=== PATIENT | female | born 1960 | race Caucasian/White ===

== ENCOUNTER → 2017-03-14 | Outpatient (CLI) | payer OTHER ==
--- NOTE | 2017-03-15 08:54 | CT ---
EXAMINATION TYPE: CT abdomen pelvis w con DATE OF EXAM: 03/14/2017 COMPARISON: 06/25/2014 HISTORY: Generalized abdominal pain with nausea, vomiting, diarrhea and rectal bleeding x 3 weeks. 42 lb weight loss in [address] DLP: 712 mGycm Automated exposure control for dose reduction was used. CONTRAST: CT scan of the abdomen pelvis is performed with IV Contrast, patient injected with 80 mL of Visipaque 320. FINDINGS- LUNG BASES-linear changes involving the lung bases most typical. LIVER/GB-stable less than 5 mm hypodensity within the dome of the liver too small to characterize. No obvious gallstones.. PANCREAS- No gross abnormality is seen. SPLEEN- No gross abnormality is seen. ADRENALS- No gross abnormality is seen. KIDNEYS/BLADDER- no hydronephrosis or hydronephrosis. Tiny hypodensity involving upper pole the left kidney too small to characterize. BOWEL- no bowel dilatation. Normal appendix. Small hiatal hernia noted. There is prominent wall thi ckness of the sigmoid colon felt to be most likely related to incomplete distention correlate clinica lly. LYMPH NODES- No greater than 1cm abdominal or pelvic lymph nodes are appreciated. OSSEOUS STRUCTURES-degenerative change of the spine. OTHER- atherosclerotic change of the vasculature. No evidence of aortic aneurysm. IMPRESSION- 1. . Mild prominence of the wall thickness of the sigmoid colon felt to be most likely related to inc omplete distention rather than mucosal lesion or colitis. No inflammatory changes. Correlate clinical ly.
== END | disposition home or self-care (01) ==
LOC: RADCTMAIN 17:33
PROVIDERS: ATTEND Family Medicine
DX: R10.84 Generalized abdominal pain (principal); R19.7 Diarrhea, unspecified; R63.4 Abnormal weight loss; Z01.812 Encounter for preprocedural laboratory examination
CPT/HCPCS: 82565; 84520; 74177; 36415; Q9967

== ENCOUNTER 2017-03-27 09:25 | Day surgery (SDC) | payer OTHER ==
[2017-03-25 14:48] VITALS: BMI 25.2
[~2017-03-27 09:25] MED LIST: LACTATED RINGERS 1,000 ML IV SCH; LIDOCAINE 1% 20 ML VIAL (10MG/ML) FOR IV START INTRADERMA PRN
[2017-03-27 10:05] VITALS: RESP 16; TEMP 98.7
[2017-03-27 10:28] LABS: Glucose,Whole Blood 73 mg/dL (75-99)
[2017-03-27] MEDS ORDERED: PROPOFOL 10 MG/ML 20 ML VIAL IV ONE (10:30)
[2017-03-27] MEDS ORDERED: MIDAZOLAM 2 MG/2 ML VIAL ONE (10:30)
[2017-03-27] MEDS ORDERED: fentaNYL (PF) 50 MCG/ML 2 ML AMP ONE (10:30)
--- NOTE | 2017-03-27 10:51 | P.PCN ---
Date of Procedure: 03/27/17 Procedure(s) Performed: BRIEF HISTORY: Patient is a 56-year-old pleasant white female, scheduled for an elective colonoscopy as a part of evaluation of rectal bleeding for the last 2 months duration. She has these episodes 2- 3 times a week. Denies any significant change in her bowel habits. PROCEDURE PERFORMED: Colonoscopy and snare polypectomy. PREOPERATIVE DIAGNOSIS: Rectal bleeding. IV sedation per Anesthesia. PROCEDURE: After informed consent was obtained, the patient, was brought into the endoscopy unit. IV sedation was administered by Anesthesia under continuous monitoring. Digital rectal examination was normal. Initially the Olympus CF- 160 flexible video colonoscope was then inserted in the rectum, gradually advanced into the cecum without any difficulty. Careful examination was performed as the scope was gradually being withdrawn. Ileocecal valve and the appendiceal orifice were visualized and appeared normal. Prep was excellent. Mucosa of the cecum, ascending colon, transverse colon, was normal. He the descending colon there was a 1.7-5 cm broad-based polyp at 60 cm from the anal was there was removed by snare polypectomy. In the sigmoid colon there were 2 polyps measuring 5 mm in size removed by snare polypectomy and in the distal rectum there was a 5 and admitted polyp removed by snare polypectomy. The rest of the descending colon, sigmoid colon, and rectum appeared normal. Scattered ascending diverticulosis seen. Retroflexion was performed in the rectum and all internal hemorrhoids were seen. The patient tolerated the procedure well. IMPRESSION: 1.5 cm broad-based ascending colon polyp status post polypectomy. 5 mm 2 sigmoid polyp status post polypectomy 5 mm distal rectal polyp status post polypectomy Scattered sigmoid diverticulosis. RECOMMENDATIONS: Findings of this examination were discussed with the patient as well as her family. She was advised to follow with the biopsy results have a repeat colonoscopy in 3 yrs
[2017-03-27 11:15] VITALS: BP 126/73; PULSE 93
== END 2017-03-27 12:03 | disposition home or self-care (01) ==
LOC: ORWHC2ENDO 09:25
PROVIDERS: ATTEND Internal Medicine Gastroenterology
DX: K63.5 Polyp of colon (principal); K62.1 Rectal polyp; K57.30 Diverticulosis of large intestine without perforation or abscess without bleeding; K64.8 Other hemorrhoids; K21.9 Gastro-esophageal reflux disease without esophagitis; I10 Essential (primary) hypertension; E78.5 Hyperlipidemia, unspecified; E11.9 Type 2 diabetes mellitus without complications; Z79.84 Long term (current) use of oral hypoglycemic drugs; Z79.51 Long term (current) use of inhaled steroids; Z79.899 Other long term (current) drug therapy; Z88.6 Allergy status to analgesic agent; Z88.5 Allergy status to narcotic agent
CPT/HCPCS: 88305; 45385; J2250; J3010; J2704

== ENCOUNTER → 2017-04-01 | Outpatient (CLI) | payer OTHER ==
--- NOTE | 2017-04-01 21:05 | XR ---
Right knee HISTORY: Right knee pain, trauma 3 views of the right knee Bone mineralization, joint spaces and alignment are maintained. No evident sizable joint effusion. IMPRESSION: No fracture or dislocation.
== END | disposition home or self-care (01) ==
LOC: RADXRYALE 16:02
PROVIDERS: ATTEND Physician Assistant
DX: M25.561 Pain in right knee (principal)

== ENCOUNTER → 2017-07-23 | Outpatient (CLI) | payer OTHER ==
--- NOTE | 2017-07-24 11:27 | MM ---
Reason for exam: screening (asymptomatic). Last mammogram was performed 1 year ago. History: Benign excisional biopsy of the right breast, 2014. Physical Findings: A clinical breast exam by your physician is recommended on an annual basis and results should be correlated with mammographic findings. MG 3D Screening Mammo W/Cad Bilateral CC and MLO view(s) were taken. Prior study comparison: July 17, 2016, mammogram, performed at [facility]. May 06, 2015, mammogram, performed at [facility]. The breast tissue is almost entirely fat. Stable benign calcifications. ASSESSMENT: Benign, BI-RAD 2 RECOMMENDATION: Routine screening mammogram of both breasts in 1 year.
== END | disposition home or self-care (01) ==
LOC: RADMAMWWP 10:45
PROVIDERS: ATTEND Family Medicine
DX: Z12.31 Encounter for screening mammogram for malignant neoplasm of breast (principal)
CPT/HCPCS: 77063; 77067

== ENCOUNTER → 2017-08-06 | Outpatient (CLI) | payer OTHER ==
--- NOTE | 2017-08-06 10:52 | XR ---
EXAMINATION TYPE: XR abdomen 2V DATE OF EXAM: 08/06/2017 COMPARISON: NONE HISTORY: Pain and constipation TECHNIQUE: One view abdominal series FINDINGS: The osseous structures are intact. The bowel gas pattern is nonspecific. Lung bases are clear. Calc ifications in the pelvis are nonspecific. Retained fecal debris along the left colon. Arthropathy of the hips. IMPRESSION: 1. Nonspecific abdomen.
== END | disposition home or self-care (01) ==
LOC: RADXRYALE 10:30
PROVIDERS: ATTEND Physician Assistant Medical
DX: K59.00 Constipation, unspecified (principal)
CPT/HCPCS: 74019

== ENCOUNTER → 2018-01-09 | Outpatient (CLI) | payer OTHER ==
--- NOTE | 2018-01-09 12:34 | XR ---
EXAMINATION TYPE: XR chest 2V DATE OF EXAM: 01/09/2018 COMPARISON: 09/09/2014 TECHNIQUE: PA and lateral views submitted. HISTORY: Chest pain FINDINGS: The lungs are clear and there is no pneumothorax, pleural effusion, or focal pneumonia. Atheroscler otic change aorta. No overt failure. Hypertrophic and degenerative change of the vertebral column. He art size within normal limits in density along the right cardiophrenic angle appears to be compatible with a prominent pericardial fat pad and stable.. IMPRESSION: 1. No acute process.
== END ==
LOC: RADXRYALE 12:12
PROVIDERS: ATTEND Physician Assistant Medical
DX: R07.9 Chest pain, unspecified (principal); Z72.0 Tobacco use
CPT/HCPCS: 71046

== ENCOUNTER → 2018-09-24 | Outpatient (CLI) | payer OTHER ==
--- NOTE | 2018-09-24 12:21 | XR ---
Right hand HISTORY: Trauma and pain 3 views of the right hand There is arthropathy at the carpometacarpal joint of the first digit. Fracture involving the proximal aspect of the proximal phalanx of the fifth digit possibly extends into the medical carpal phalangea l joint, minimal displacement. Arthropathy present at the distal interphalangeal joints. IMPRESSION: Suspect intra-articular fifth digit proximal phalangeal fracture.
== END | disposition home or self-care (01) ==
LOC: RADXRYALE 09:41
PROVIDERS: ATTEND Physician Assistant Medical
DX: M79.641 Pain in right hand (principal); W19.XXXA Unspecified fall, initial encounter

== ENCOUNTER 2019-03-16 12:15 | Inpatient (IN) | payer OTHER ==
[2019-03-16] MEDS ORDERED: SODIUM CHLORIDE 0.9% 500 ML 500 ML IV STA (13:17)
[2019-03-16 13:24] LABS: Basophils # (A) 0.1 k/uL (0-0.2); Basophils % (A) 1 %; Eosinophils # (A) 0.5 k/uL (0-0.7); Eosinophils % (A) 7 %; HCT 39.6 % (34.0-46.0); Lymphocytes # (A) 1.2 k/uL (1.0-4.8); Lymphocytes % (A) 16 %; MCH 37.2 pg (25.0-35.0); MCV 112.9 fL (80.0-100.0); Macrocytosis Marked; Mean Platelet Volume 7.2; Monocytes # (A) 0.5 k/uL (0-1.0); Monocytes % (A) 6 %; Neutrophils % (A) 66 %; Platelet Count 172 k/uL (150-450); RBC 3.51 m/uL (3.80-5.40); RDW 14.8 % (11.5-15.5); WBC 7.6 k/uL (3.8-10.6)
--- NOTE | 2019-03-16 13:30 | ED ---
General Adult HPI - General Source: patient, RN notes reviewed Mode of arrival: ambulatory Limitations: no limitations <Andre Otoole - Last Filed: 03/16/19 13:55> <Guevara Martinez - Last Filed: 03/16/19 14:03> - General Chief complaint: GI Bleed Stated complaint: skin tag bleeding Time Seen by Provider: 03/16/19 12:59 - History of Present Illness Initial comments: 58-year-old female with a complicated PMH presents to the emergency department for a chief complaint of toe bleeding. Patient states she has had rectal bleeding for the past 6 months. States she had a small skin tag on her anus starting 2 years ago. Patient states that she saw Dr. Weiner and had a colonoscopy at that time. States that they did not recommend intervention for this skin tag. However over the past 6 months the skin tag has grown. States she is now having bright red blood every time she has a bowel movement. Patient states she did see GI in January and was supposed to see them again in February for this but missed her appointment and never rescheduled. Patient states she is now feeling weak and that is why she presents to the emergency department.Patient has no other complaints at this time including shortness of breath, chest pain, abdominal pain, nausea or vomiting, headache, or visual changes. (Andre Otoole) - Related Data Home Medications Medication Instructions Recorded Confirmed Albuterol Inhaler [Ventolin Hfa 2 puff INHALATION Q6HR PRN 03/25/17 03/25/17 Inhaler] Atorvastatin [Lipitor] 80 mg PO HS 03/25/17 03/25/17 Cholecalciferol [Vitamin D3] 1,000 unit PO DAILY 03/25/17 03/25/17 FLUoxetine HCL [PROzac] 20 mg PO DAILY 03/25/17 03/25/17 Hydrocodone/Acetaminophen [[place] 1 tab PO QID 03/25/17 03/25/17 10-325] Lisinopril-Hctz 20-25 mg 1 tab PO DAILY 03/25/17 03/25/17 [Zestoretic 20-25] Mometasone/Formoterol [Dulera 100 2 puff INHALATION BID 03/25/17 03/25/17 Mcg/5 Mcg Inhaler] Montelukast [Singulair] 10 mg PO DAILY 03/25/17 03/25/17 Ranitidine HCl [Zantac] 300 mg PO BID 03/25/17 03/25/17 metFORMIN HCL [Glucophage] 500 mg PO BID 03/25/17 03/25/17 Allergies Allergy/AdvReac Type Severity Reaction Status Date / Time naproxen [From Naprosyn] Allergy Mild Nausea & Verified 03/16/19 12:18 Vomiting acetaminophen Allergy Nausea & Verified 03/16/19 12:18 [From Darvocet-N] Vomiting propoxyphene Allergy Nausea & Verified 03/16/19 12:18 [From Darvocet-N] Vomiting Review of Systems ROS Other: All systems not noted in ROS Statement are negative. <Andre Otoole - Last Filed: 03/16/19 13:55> ROS Other: All systems not noted in ROS Statement are negative. <Guevara Martinez - Last Filed: 03/16/19 14:03> ROS Statement: Those systems with pertinent positive or pertinent negative responses have been documented in the HPI. Past Medical History Past Medical History: Asthma, COPD, Diabetes Mellitus, GERD/Reflux, Hyperlipidemia, Hypertension, Pneumonia, Seizure Disorder Additional Past Medical History / Comment(s): migraines, epilepsy dx as infant, chronic bronchitis, upset stomach recently, rectal bleeding for past 6-7 months, History of Any Multi-Drug Resistant Organisms: None Reported Past Surgical History: Breast Surgery, Orthopedic Surgery Additional Past Surgical History / Comment(s): left fallopian tube removed and oophorectomy, cysts removed from tommy breasts, cyst removed from forehead, left knee arthroscopy x 2, Past Anesthesia/Blood Transfusion Reactions: No Reported Reaction Past Psychological History: Anxiety, Depression Smoking Status: Current every day smoker Past Alcohol Use History: Daily Past Drug Use History: None Reported - Past Family History Mother Family Medical History: Cancer Father Family Medical History: Cancer <Andre Otoole - Last Filed: 03/16/19 13:55> General Exam Limitations: no limitations General appearance: alert, in no apparent distress Head exam: Present: atraumatic, normocephalic, normal inspection Eye exam: Present: normal appearance, PERRL, EOMI. Absent: scleral icterus, conjunctival injection, periorbital swelling ENT exam: Present: normal exam, mucous membranes moist Neck exam: Present: normal inspection, full ROM. Absent: tenderness, meningismus, lymphadenopathy Respiratory exam: Present: normal lung sounds bilaterally. Absent: respiratory distress, wheezes, rales, rhonchi, stridor Cardiovascular Exam: Present: regular rate, normal rhythm, normal heart sounds. Absent: systolic murmur, diastolic murmur, rubs, gallop, clicks GI/Abdominal exam: Present: soft, normal bowel sounds. Absent: distended, tenderness, guarding, rebound, rigid Rectal exam: Present: hemorrhoids (large hemorrhoid noted, tender, non-thro mbosed) Neurological exam: Present: alert <Andre Otoole - Last Filed: 03/16/19 13:55> Course <Guevara Martinez - Last Filed: 03/16/19 14:03> Vital Signs 03/16/19 03/16/19 12:18 13:23 Temperature 98.1 F Pulse Rate 106 H 101 H Respiratory 18 18 Rate Blood Pressure 107/69 110/75 O2 Sat by Pulse 99 98 Oximetry - Reevaluation(s) Reevaluation #1: 03/16/19 14:02 PA supervision: I pursued a [id number] evaluation the patient did discuss the findings with her. She does present with weakness. Heme positive brown stool she also has elevation of her creatinine was acute kidney injury as well as elevation of her LFTs. She admits to drinking 2-3 drinks per day she does not believe going through withdrawal from not drinking she does however smoke a pack a day and does believe she'll have withdrawal from nicotine. She will be placed on appropriate medication. I did discuss case with Dr. Gant (Guevara Martinez) Medical Decision Making - Lab Data Result diagrams: 03/16/19 13:10 03/16/19 13:10 <Andre Otoole - Last Filed: 03/16/19 13:55> - Lab Data Result diagrams: 03/16/19 13:10 03/16/19 13:10 <Guevara Martinez - Last Filed: 03/16/19 14:03> - Medical Decision Making Patient presents for weakness. Patient thought this is secondary to GI bleed. She is minimally tachycardic. Occult is positive, although hemoglobin is stable at 13.0. Patient was found to be in acute renal failure with a creatinine of 2.99. Baseline appears to be around 1.2. Patient also has transaminitis with an elevated bilirubin. Could be secondary to alcoholic hepatitis as patient reports to drinking 3 drinks per day. She does not have any abdominal pain. Magnesium 1.4, this was replaced. Patient will be started on IV fluids. GI will be consulted given hemorrhoid, GI bleed, and transaminitis. Nephrology will be consulted given acute renal failure. (Andre Otoole) - Lab Data Lab Results 03/16/19 03/16/19 03/16/19 Range/Units 13:10 13:10 13:10 WBC 7.6 (3.8-10.6) k/uL RBC 3.51 L (3.80-5.40) m/uL Hgb 13.0 (11.4-16.0) gm/dL Hct 39.6 (34.0-46.0) % MCV 112.9 H (80.0-100.0) fL MCH 37.2 H (25.0-35.0) pg MCHC 33.0 (31.0-37.0) g/dL RDW 14.8 (11.5-15.5) % Plt Count 172 (150-450) k/uL Neutrophils % 66 % Lymphocytes % 16 % Monocytes % 6 % Eosinophils % 7 % Basophils % 1 % Neutrophils # 5.0 (1.3-7.7) k/uL Lymphocytes # 1.2 (1.0-4.8) k/uL Monocytes # 0.5 (0-1.0) k/uL Eosinophils # 0.5 (0-0.7) k/uL Basophils # 0.1 (0-0.2) k/uL Macrocytosis Marked A PT (9.0-12.0) sec INR (<1.2) APTT (22.0-30.0) sec Sodium 133 L (137-145) mmol/L Potassium 4.0 (3.5-5.1) mmol/L Chloride 102 (98-107) mmol/L Carbon Dioxide 18 L (22-30) mmol/L Anion Gap 13 mmol/L BUN 16 (7-17) mg/dL Creatinine 2.99 H (0.52-1.04) mg/dL Est GFR (CKD-EPI)AfAm 19 (>60 ml/min/1.73 sqM) Est GFR (CKD-EPI)NonAf 17 (>60 ml/min/1.73 sqM) Glucose 74 (74-99) mg/dL Calcium 8.7 (8.4-10.2) mg/dL Magnesium 1.4 L (1.6-2.3) mg/dL Total Bilirubin 1.4 H (0.2-1.3) mg/dL AST 656 H (14-36) U/L ALT 209 H (4-34) U/L Alkaline Phosphatase 156 H (38-126) U/L Total Protein 7.2 (6.3-8.2) g/dL Albumin 3.5 (3.5-5.0) g/dL Stool Occult Blood Positive H (Negative) 03/16/19 Range/Units 13:10 WBC (3.8-10.6) k/uL RBC (3.80-5.40) m/uL Hgb (11.4-16.0) gm/dL Hct (34.0-46.0) % MCV (80.0-100.0) fL MCH (25.0-35.0) pg MCHC (31.0-37.0) g/dL RDW (11.5-15.5) % Plt Count (150-450) k/uL Neutrophils % % Lymphocytes % % Monocytes % % Eosinophils % % Basophils % % Neutrophils # (1.3-7.7) k/uL Lymphocytes # (1.0-4.8) k/uL Monocytes # (0-1.0) k/uL Eosinophils # (0-0.7) k/uL Basophils # (0-0.2) k/uL Macrocytosis PT 11.0 (9.0-12.0) sec INR 1.0 (<1.2) APTT 28.0 (22.0-30.0) sec Sodium (137-145) mmol/L Potassium (3.5-5.1) mmol/L Chloride (98-107) mmol/L Carbon Dioxide (22-30) mmol/L Anion Gap mmol/L BUN (7-17) mg/dL Creatinine (0.52-1.04) mg/dL Est GFR (CKD-EPI)AfAm (>60 ml/min/1.73 sqM) Est GFR (CKD-EPI)NonAf (>60 ml/min/1.73 sqM) Glucose (74-99) mg/dL Calcium (8.4-10.2) mg/dL Magnesium (1.6-2.3) mg/dL Total Bilirubin (0.2-1.3) mg/dL AST (14-36) U/L ALT (4-34) U/L Alkaline Phosphatase (38-126) U/L Total Protein (6.3-8.2) g/dL Albumin (3.5-5.0) g/dL Stool Occult Blood (Negative) Disposition Is patient prescribed a controlled substance at d/c from ED?: No Time of Disposition: 13:59 <Andre Otoole - Last Filed: 03/16/19 13:55> <Guevara Martinez - Last Filed: 03/16/19 14:03> Clinical Impression: Weakness, Transaminitis, GI bleed, Hemorrhoid, Hypomagnesemia, Hyperbil irubinemia Disposition: ADMITTED IP TO THIS HOSP Referrals: Yfn Tao DO [Primary Care Provider] - 1-2 days
[2019-03-16 13:38] LABS: Albumin 3.5 g/dL (3.5-5.0); Calcium 8.7 mg/dL (8.4-10.2); Magnesium 1.4 mg/dL (1.6-2.3); Total Bilirubin 1.4 mg/dL (0.2-1.3); Total Protein 7.2 g/dL (6.3-8.2)
[2019-03-16] MEDS ORDERED: MAGNESIUM SULFATE-D5W PMX 1 GM in DEXTROSE/WATER 1 100ML.BAG IVPB ONE (13:55)
[2019-03-16] MEDS ORDERED: NALOXONE 0.4 MG/ML 1 ML VIAL IV PRN (13:59)
[2019-03-16] MEDS ORDERED: LORazepam 2 MG/ML INJ IV PRN ×3 (14:22)
[2019-03-16] MEDS ORDERED: THIAMINE 100 MG/ML 2 ML VIAL IM STA (14:22)
--- NOTE | 2019-03-16 14:22 | P.HPIM ---
History of Present Illness This is a pleasant 58 years old female with past medical history of asthma/COPD, diabetes mellitus, gastroesophageal reflux disease, hypertension, hyperlipidemia, seizure disorder, migraines, epilepsy since entrance, chronic bronchitis, rectal bleeding for the past 6 or 7 months. Patient presents because she feels generally weak with lightheadedness and dizziness for the last few days. Her main concerns was skin tack around the rectal area with Doppler blood has been going on for 6-7 months. She went to see Dr. martinez nurse practitioner: January and she missed her follow-up appointment on February. Patient has decreased appetite She denies nausea vomiting, she has chronic diarrhea and mild left abdominal pain. She denies chest pain or dyspnea. No urine abnormality. Patient smokes about 1 pack per day, she drinks about 2-3 drinks of alcohol every days but no illicit tracts Patient as well as tachycardic 101-2106, respiratory vitals were unremarkable. Hemoglobin 13.0, a CBC is unremarkable. Sodium 133, creatinine is elevated at 2.9, non-baseline, magnesium 1.4, liver enzymes are elevated AST 656 and ALT 209 with bilirubin 1.4, occult blood in stool was positive In the emergency room patient was started on normal son 120 mL per hour Review of Systems CONSTITUTIONAL: No fever, no malaise, no fatigue. HEENT: No recent visual problems or hearing problems. Denied any sore throat. CARDIOVASCULAR: No orthopnea, PND, no palpitations, no syncope. PULMONARY: No shortness of breath, no cough, no hemoptysis. GASTROINTESTINAL: No diarrhea, no nausea, no vomiting, no abdominal pain. Normoactive bowel sounds. NEUROLOGICAL: No headaches, no weakness, no numbness. HEMATOLOGICAL: Denies any bleeding or petechiae. GENITOURINARY: Denies any burning micturition, frequency, or urgency. MUSCULOSKELETAL/RHEUMATOLOGICAL: Denies any joint pain, swelling, or any muscle pain. ENDOCRINE: Denies any polyuria or polydipsia. Past Medical History Past Medical History: Asthma, COPD, Diabetes Mellitus, GERD/Reflux, Hyperlipidemia, Hypertension, Pneumonia, Seizure Disorder Additional Past Medical History / Comment(s): migraines, epilepsy dx as infant, chronic bronchitis, upset stomach recently, rectal bleeding for past 6-7 months, History of Any Multi-Drug Resistant Organisms: None Reported Past Surgical History: Breast Surgery, Orthopedic Surgery Additional Past Surgical History / Comment(s): left fallopian tube removed and oophorectomy, cysts removed from tommy breasts, cyst removed from forehead, left knee arthroscopy x 2, Past Anesthesia/Blood Transfusion Reactions: No Reported Reaction Past Psychological History: Anxiety, Depression Smoking Status: Current every day smoker Past Alcohol Use History: Daily Past Drug Use History: None Reported - Past Family History Mother Family Medical History: Cancer Father Family Medical History: Cancer Medications and Allergies Home Medications Medication Instructions Recorded Confirmed Type Albuterol Inhaler [Ventolin Hfa 2 puff INHALATION Q6HR PRN 03/25/17 03/25/17 History Inhaler] Atorvastatin [Lipitor] 80 mg PO HS 03/25/17 03/25/17 History Cholecalciferol [Vitamin D3] 1,000 unit PO DAILY 03/25/17 03/25/17 History FLUoxetine HCL [PROzac] 20 mg PO DAILY 03/25/17 03/25/17 History Hydrocodone/Acetaminophen [[place] 1 tab PO QID 03/25/17 03/25/17 History 10-325] Lisinopril-Hctz 20-25 mg 1 tab PO DAILY 03/25/17 03/25/17 History [Zestoretic 20-25] Mometasone/Formoterol [Dulera 100 2 puff INHALATION BID 03/25/17 03/25/17 History Mcg/5 Mcg Inhaler] Montelukast [Singulair] 10 mg PO DAILY 03/25/17 03/25/17 History Ranitidine HCl [Zantac] 300 mg PO BID 03/25/17 03/25/17 History metFORMIN HCL [Glucophage] 500 mg PO BID 03/25/17 03/25/17 History Allergies Allergy/AdvReac Type Severity Reaction Status Date / Time naproxen [From Naprosyn] Allergy Mild Nausea & Verified 03/16/19 12:18 Vomiting acetaminophen Allergy Nausea & Verified 03/16/19 12:18 [From Darvocet-N] Vomiting propoxyphene Allergy Nausea & Verified 03/16/19 12:18 [From Darvocet-N] Vomiting Physical Exam Vitals: Vital Signs Temp Pulse Resp BP Pulse Ox 03/16/19 13:23 101 H 18 110/75 98 03/16/19 12:18 98.1 F 106 H 18 107/69 99 Intake and Output 03/15/19 03/16/19 03/16/19 22:59 06:59 14:59 Other: Weight 63.503 kg -GENERAL: The patient is alert and oriented x3, not in any acute distress. Patient is generally weak HEENT: Pupils are round and equally reacting to light. EOMI. No scleral icterus. No conjunctival pallor. Normocephalic, atraumatic. No pharyngeal erythema. No thyromegaly. CARDIOVASCULAR: S1 and S2 present. No murmurs, rubs, or gallops. PULMONARY: Chest is clear to auscultation, no wheezing or crackles. ABDOMEN: Soft, nontender, nondistended, normoactive bowel sounds. No palpable organomegaly. MUSCULOSKELETAL: No joint swelling or deformity. EXTREMITIES: No cyanosis, clubbing, or pedal edema. NEUROLOGICAL: Gross neurological examination did not reveal any focal deficits. SKIN: No rashes. No petechiae Results CBC & Chem 7: 03/16/19 13:10 03/16/19 13:10 Labs: Abnormal Lab Results - Last 24 Hours (Table) 03/16/19 03/16/19 03/16/19 Range/Units 13:10 13:10 13:10 RBC 3.51 L (3.80-5.40) m/uL MCV 112.9 H (80.0-100.0) fL MCH 37.2 H (25.0-35.0) pg Macrocytosis Marked A Sodium 133 L (137-145) mmol/L Carbon Dioxide 18 L (22-30) mmol/L Creatinine 2.99 H (0.52-1.04) mg/dL Magnesium 1.4 L (1.6-2.3) mg/dL Total Bilirubin 1.4 H (0.2-1.3) mg/dL AST 656 H (14-36) U/L ALT 209 H (4-34) U/L Alkaline Phosphatase 156 H (38-126) U/L Stool Occult Blood Positive H (Negative) Assessment and Plan Assessment: Elevated liver enzymes, mostly related to alcoholic hepatitis Acute kidney injury , mostly prerenal related to her diarrhea, bleeding, decrease intake and appetite alcohol abuse and dependence High-risk for alcohol withdrawal and DTs Positive occult blood in stool Hypomagnesemia Nicotine dependence Chronic diarrhea Asthma/COPD Diabetes mellitus Gastroesophageal reflux disease Hypertension Hyperlipidemia Seizure disorder since infancy Migraine Chronic bronchitis Rectal bleeding about 6-7 months ago Plan: This is a pleasant 58 years old female who presents with acute kidney injury and positive blood in the stool suspicious for GI bleed with elevated liver enzymes. Continue with Protonix, and GI consult. Continue with IV fluid and nephrology consult. Check renal ultrasound and bladder scan. Check urine analysis. With the patient on CIWA protocol and vitamins. Labs and medication were reviewed.. Continue same treatment. Continue with symptomatic treatment. Resume home medication. Monitor lytes and vitals. DVT and GI prophylaxis. Further recommendations of the clinical course of the patient DVT prophylaxis: No heparin in view of possible GI bleed GI Prophylaxis: PPI PT/OT: Pending Prognosis is guarded
[2019-03-16] MEDS ORDERED: SODIUM CHLORIDE 0.9% 1,000 ML with MVI, ADULT NO.4 WITH VIT K 10 ML, THIAMINE 100 MG, F... IV ONE ×4 (14:30)
[2019-03-16] MEDS: NICOTINE 21MG/24HR PATCH TRANSDERM SCH (14:56)
[2019-03-16] MEDS: PANTOPRAZOLE 40 MG/10 ML VIAL IVP SCH (14:58)
--- NOTE | 2019-03-16 15:38 | US ---
EXAMINATION TYPE: US kidneys/renal and bladder DATE OF EXAM: 03/16/2019 COMPARISON: CT 2017, US 2014 CLINICAL HISTORY: sherwin. EXAM MEASUREMENTS: Right Kidney: 9.5 x 4.5 x 4.4 cm Left Kidney: 9.7 x 5.2 x 5.4 cm Right Kidney: no hydronephrosis or masses seen Left Kidney: no hydronephrosis or masses seen Bladder: not fully distended Cortical medullary differentiation is maintained. No pathologic calcification. IMPRESSION: Limited evaluation of the bladder. Renal sizes as described.
[2019-03-16 16:12] LABS: Appearance,Urine Clear (Clear); Bacteria,Urine Occasional /hpf; Bilirubin,Urine Negative (Negative); Blood,Urine Small (Negative); Color,Urine Light Yellow; Glucose,Urine (UA) Negative (Negative); Hyaline Casts,Urine 1 /lpf (0-2); Ketones,Urine Negative (Negative); Leukocyte Esterase,Urine Negative (Negative); Nitrite,Urine Negative (Negative); PH, Urine 5.5 (5.0-8.0); Protein,Urine Trace (Negative); RBC,Urine 1 /hpf (0-5); Specific Gravity,Urine 1.004 (1.001-1.035); Squamous Epithelial Cell,Urine <1 /hpf (0-4); Urobilinogen,Urine <2.0 mg/dL (<2.0); WBC,Urine 3 /hpf (0-5)
[2019-03-16] MEDS ORDERED: ACETAMINOPHEN TAB 325 MG TAB PO PRN (17:11)
[2019-03-16] MEDS: GABAPENTIN 100 MG CAP PO SCH ×2 (17:56→23:02)
[2019-03-16] MEDS: THIAMINE 100 MG TAB PO SCH (17:58)
[2019-03-16] MEDS ORDERED: THIAMINE 100 MG in SODIUM CHLORIDE 0.9% 50 ML IVPB SCH (21:00)
[2019-03-17 01:06] LABS: Hepatitis A Antibody IgM Non-Reactive (Non-Reactive); Hepatitis B Core IgM Non-Reactive (Non-Reactive); Hepatitis B Surface Antigen Non-Reactive (Non-Reactive); Hepatitis C IgG Antibody Reactive (Non-Reactive)
[2019-03-17] MEDS: SODIUM CHLORIDE 0.9% 1,000 ML IV SCH ×3 (01:40→20:38)
[2019-03-17] MEDS ORDERED: IOPAMIDOL CONTRAST (ORAL USE) VIAL PO PRN (07:00)
[2019-03-17] MEDS ORDERED: MORPHINE SULFATE 4 MG/ML SYRINGE IVP PRN (07:02)
--- NOTE | 2019-03-17 07:05 | P.PN ---
Subjective This is a pleasant 58 years old female with past medical history of asthma/COPD, diabetes mellitus, gastroesophageal reflux disease, hypertension, h yperlipidemia, seizure disorder, migraines, epilepsy since entrance, chronic bronchitis, rectal bleeding for the past 6 or 7 months. Patient presents because she feels generally weak with lightheadedness and dizziness for the last few days. Her main concerns was skin tack around the rectal area with Doppler blood has been going on for 6-7 months. She went to see Dr. martinez nurse practitioner: January and she missed her follow-up appointment on February. Patient has decreased appetite She denies nausea vomiting, she has chronic diarrhea and mild left abdominal pain. She denies chest pain or dyspnea. No urine abnormality. Patient smokes about 1 pack per day, she drinks about 2-3 drinks of alcohol every days but no illicit tracts Patient as well as tachycardic [id number], respiratory vitals were unremarkable. Hemoglobin 13.0, a CBC is unremarkable. Sodium 133, creatinine is elevated at 2.9, non-baseline, magnesium 1.4, liver enzymes are elevated AST 656 and ALT 209 with bilirubin 1.4, occult blood in stool was positive In the emergency room patient was started on normal son 120 mL per hour 03/17/2019 Patient is awake and alert, she has minimal craving for alcohol with mild sammi mor. her CIWA score is wanted to so far. She is mildly tachycardic at 108-1/10, respiratory vitals Stable and blood pressure 135/73, she is not on antihypertensive medication and she is currently on normal saline at 1 20 mL/h. Labs are still pending. Her hepatitis C IgG antibodies are positive. However patient today is complaining of from lower abdominal pain, mainly on the left side and also upper abdomen. She has some tenderness and minimal guarding. Her abdominal pain started yesterday night as she is telling me and is related about 8/10. Nonspecific nonradiating. She did not have bowel movement for the last 2 days. No vomiting. Ultrasound of the renal system from yesterday showi ng no hydronephrosis or masses. Also patient was complaining of from back pain. Anemia workup is still pending. Review of systems: CONSTITUTIONAL: No fever, no malaise, no fatigue. HEENT: No recent visual problems or hearing problems. Denied any sore throat. CARDIOVASCULAR: No orthopnea, PND, no palpitations, no syncope. PULMONARY: No shortness of breath, no cough, no hemoptysis. NEUROLOGICAL: No headaches, no weakness, no numbness. HEMATOLOGICAL: Denies any bleeding or petechiae. GENITOURINARY: Denies any burning micturition, frequency, or urgency. MUSCULOSKELETAL/RHEUMATOLOGICAL: Denies any joint pain, swelling, or any muscle pain. ENDOCRINE: Denies any polyuria or polydipsia. Active Medications Generic Name Dose Route Start Last Admin Trade Name Freq PRN Reason Stop Dose Admin Acetaminophen 650 mg 03/16/19 17:11 03/17/19 06:12 Tylenol Tab PO 650 mg Q6HR PRN Administration Fever and/ or Pain Gabapentin 100 mg 03/16/19 14:21 03/16/19 23:02 Neurontin PO 100 mg BID [place] Administration Sodium Chloride 1,000 mls @ 120 mls/hr 03/17/19 00:00 03/17/19 01:40 Saline 0.9% IV 120 mls/hr .Q8H20M [place] Administration Iopamidol 30 ml 03/17/19 07:00 Isovue-300 (For Oral Use) PO 03/18/19 07:[address] Scan Lorazepam 1 mg 03/16/19 14:22 Ativan IV Q2HR PRN CIWA 8 or 9 Lorazepam 1 mg 03/16/19 14:22 Ativan IV Q1HR PRN CIWA 10 to 15 Lorazepam 2 mg 03/16/19 14:22 Ativan IV 03/18/19 14:22 Q10M PRN CIWA 16 or higher Naloxone HCl 0.2 mg 03/16/19 13:59 Narcan IV Q2M PRN Opioid Reversal Nicotine 1 patch 03/16/19 14:15 03/16/19 14:56 Habitrol 21mg/24hr Patch TRANSDERM 1 patch DAILY [place] Administration Pantoprazole Sodium 40 mg 03/16/19 14:15 03/16/19 14:58 Protonix IVP 40 mg DAILY [place] Administration Thiamine HCl 100 mg 03/16/19 17:30 03/16/19 17:58 Vitamin B-1 PO Not Given BID-W/MEALS [place] Objective - Vital Signs Vital signs: Vital Signs Temp 98.2 F 03/17/19 05:51 Pulse 109 H 01/14/20 05:51 Resp 18 03/17/19 05:51 BP 135/73 03/17/19 05:51 Pulse Ox 96 03/17/19 05:51 Intake & Output 03/16/19 03/16/19 03/17/19 06:59 18:59 06:59 Intake Total 0 Balance 0 Weight 63.503 kg 64.5 kg Intake: Oral 0 Other: Voiding Method Toilet # Voids 1 - Exam -GENERAL: The patient is alert and oriented x3, not in any acute distress. Patient is generally weak HEENT: Pupils are round and equally reacting to light. EOMI. No scleral icterus. No conjunctival pallor. Normocephalic, atraumatic. No pharyngeal erythema. No thyromegaly. CARDIOVASCULAR: S1 and S2 present. No murmurs, rubs, or gallops. PULMONARY: Chest is clear to auscultation, no wheezing or crackles. -ABDOMEN: Soft, left and upper abdominal tenderness with minimal guarding and no rebound tenderness, nondistended, normoactive bowel sounds. No palpable organomegaly. MUSCULOSKELETAL: No joint swelling or deformity. EXTREMITIES: No cyanosis, clubbing, or pedal edema. NEUROLOGICAL: Gross neurological examination did not reveal any focal deficits. SKIN: No rashes. No petechiae - Labs CBC & Chem 7: 03/16/19 13:10 03/16/19 13:10 Labs: Abnormal Lab Results - Last 24 Hours (Table) 03/16/19 03/16/19 03/16/19 Range/Units 13:10 13:10 13:10 RBC 3.51 L (3.80-5.40) m/uL MCV 112.9 H (80.0-100.0) fL MCH 37.2 H (25.0-35.0) pg Macrocytosis Marked A Sodium 133 L (137-145) mmol/L Carbon Dioxide 18 L (22-30) mmol/L Creatinine 2.99 H (0.52-1.04) mg/dL Magnesium 1.4 L (1.6-2.3) mg/dL Total Bilirubin 1.4 H (0.2-1.3) mg/dL AST 656 H (14-36) U/L ALT 209 H (4-34) U/L Alkaline Phosphatase 156 H (38-126) U/L Urine Protein (Negative) Urine Blood (Negative) Urine Bacteria (None) /hpf Stool Occult Blood Positive H (Negative) Hep C IgG Ab (Non-Reactive) 03/16/19 03/16/19 Range/Units 14:34 15:10 RBC (3.80-5.40) m/uL MCV (80.0-100.0) fL MCH (25.0-35.0) pg Macrocytosis Sodium (137-145) mmol/L Carbon Dioxide (22-30) mmol/L Creatinine (0.52-1.04) mg/dL Magnesium (1.6-2.3) mg/dL Total Bilirubin (0.2-1.3) mg/dL AST (14-36) U/L ALT (4-34) U/L Alkaline Phosphatase (38-126) U/L Urine Protein Trace H (Negative) Urine Blood Small H (Negative) Urine Bacteria Occasional H (None) /hpf Stool Occult Blood (Negative) Hep C IgG Ab Reactive H (Non-Reactive) Assessment and Plan Assessment: Acute Left lower abdomen and upper abdominal pain and tenderness Elevated liver enzymes, mostly related to alcoholic hepatitis Acute kidney injury , mostly prerenal related to her diarrhea, bleeding, decrease intake and appetite alcohol abuse and dependence High-risk for alcohol withdrawal and DTs Positive occult blood in stool Hypomagnesemia Nicotine dependence Chronic diarrhea Asthma/COPD Diabetes mellitus Gastroesophageal reflux disease Hypertension Hyperlipidemia Seizure disorder since infancy Migraine Chronic bronchitis Rectal bleeding about 6-7 months ago Plan: This is a pleasant 58 years old female who presents with acute kidney injury and positive blood in the stool suspicious for GI bleed with elevated liver enzymes. Continue with Protonix, and GI consult. Continue with IV fluid and nephrology consult. With the patient on CIWA protocol and vitamins. Also call surgical consult and CT of the abdomen and pelvis. Pain management Labs and medication were reviewed.. Continue same treatment. Continue with symptomatic treatment. Resume home medication. Monitor lytes and vitals. DVT and GI prophylaxis. Further recommendations of the clinical course of the patient DVT prophylaxis: No heparin in view of possible GI bleed GI Prophylaxis: PPI PT/OT: Pending Prognosis is guarded
[2019-03-17 08:23] LABS: ALT 187 U/L (4-34); AST 566 U/L (14-36); African American GFR (CKD) 36 (>60 ml/min/1.73 sqM); Albumin 2.8 g/dL (3.5-5.0); Alkaline Phosphatase 127 U/L (38-126); Anion Gap 7 mmol/L; Bilirubin, Conjugated 0.1 mg/dL (0.0-0.3); Bilirubin, Delta 1.3 mg/dL (0.0-0.2); Bilirubin,Unconjugated 1.2 mg/dL (0.0-1.1); Blood Urea Nitrogen 15 mg/dL (7-17); Calcium 7.9 mg/dL (8.4-10.2); Carbon Dioxide 21 mmol/L (22-30); Chloride 108 mmol/L (98-107); Glucose 67 mg/dL (74-99); Magnesium 1.3 mg/dL (1.6-2.3); Non-African American GFR(CKD) 31 (>60 ml/min/1.73 sqM); Sodium 136 mmol/L (137-145); Total Bilirubin 2.6 mg/dL (0.2-1.3); Total Protein 6.4 g/dL (6.3-8.2)
[2019-03-17 08:24] LABS: Basophils % (A) 0 %; Eosinophils # (A) 0.3 k/uL (0-0.7); Eosinophils % (A) 5 %; HCT 36.7 % (34.0-46.0); HGB 12.3 gm/dL (11.4-16.0); Lymphocytes # (A) 0.9 k/uL (1.0-4.8); Lymphocytes % (A) 18 %; MCH 38.5 pg (25.0-35.0); MCHC 33.5 g/dL (31.0-37.0); Macrocytosis Marked; Mean Platelet Volume 7.5; Monocytes # (A) 0.4 k/uL (0-1.0); Monocytes % (A) 9 %; Neutrophils # (A) 3.3 k/uL (1.3-7.7); Neutrophils % (A) 65 %; Platelet Count 147 k/uL (150-450); RBC 3.19 m/uL (3.80-5.40); RDW 14.7 % (11.5-15.5); WBC 5.1 k/uL (3.8-10.6)
[2019-03-17 08:28] LABS: Potassium 4.3 mmol/L (3.5-5.1)
[2019-03-17] MEDS: GABAPENTIN 100 MG CAP PO SCH ×2 (08:35→20:38)
[2019-03-17] MEDS: PANTOPRAZOLE 40 MG/10 ML VIAL IVP SCH (08:35)
[2019-03-17] MEDS: THIAMINE 100 MG TAB PO SCH ×2 (08:35→17:49)
[2019-03-17] MEDS: NICOTINE 21MG/24HR PATCH TRANSDERM SCH (08:36)
[2019-03-17] MEDS: IOPAMIDOL CONTRAST (ORAL USE) VIAL PO PRN ×2 (09:36→10:38)
[2019-03-17] MEDS: FLUoxetine HCL 20 MG CAP PO SCH (09:36)
[2019-03-17] MEDS ORDERED: Magnesium Replacement Protocol 1 EACH MISC MISCELLANE PRN (09:55)
--- NOTE | 2019-03-17 11:31 | CT ---
EXAMINATION TYPE: CT abdomen pelvis wo con DATE OF EXAM: 03/17/2019 COMPARISON: 03/14/2017 HISTORY: LLQ pain CT DLP: 542 mGycm Examination of the solid and hollow viscera is limited given the lack of contrast. FINDINGS: LUNG BASES: No evidence for nodule. No evidence for infiltrate. LIVER/GB: The liver is enlarged and demonstrates diffuse hepatic infiltration. The gallbladder is unr emarkable. No space-occupying hepatic lesion. PANCREAS: No pancreatic mass identified. No inflammatory process seen. SPLEEN: No evidence for splenomegaly. No intrasplenic lesions seen. ADRENALS: No adrenal nodules identified. No evidence for thickening. KIDNEYS: No evidence for renal mass. No nephrolithiasis. No hydronephrosis. BOWEL: Appendix has a normal appearance. No evidence of bowel obstruction. The descending colon at it s midportion demonstrates wall thickening felt to reflect focal colitis. Correlate clinically. No lola dence of diverticulitis. No free air or abscess identified. Lymph nodes: No evidence for adenopathy greater than 1 cm. Abdominal aorta: Atheromatous changes seen. No evidence for aneurysm. Genital organs: No significant abnormality. Other: No significant abnormality. IMPRESSION: 1. Findings are felt to reflect focal nonspecific colitis of the mid descending colon. Correlate clin ically and consider follow-up if indicated. 2. Hepatomegaly with underlying hepatic steatosis.
[2019-03-17] MEDS: HYDROcodone/APAP 10-325MG 1 EACH TAB PO PRN ×2 (12:26→17:57)
[2019-03-17] MEDS: MAGNESIUM SULFATE-D5W PMX 1 GM in DEXTROSE/WATER 1 100ML.BAG IVPB SCH ×3 (12:26→15:45)
--- NOTE | 2019-03-17 12:30 | P.GSCN ---
History of Present Illness Consult date: 03/17/19 History of present illness: 58-year-old female initially presented to the emergency department with complaints of rectal bleeding. She states that she had a skin tag that she believes has been bleeding for the past 2 years. She states that this area has increased in size. She also was complaining of abdominal pain. She states the abdominal pain is in the left side of her abdomen. She has been evaluated by gastroenterology over the past few years. She states that she did have a colonoscopy approximately 2 years ago and did have a recent appointment within the last few months with gastroenterology. She states that she did miss an appointment recently. She denies any nausea or vomiting. Her hemoglobin is currently 12.3 with no significant decrease since her admission. She did state during the exam that she needed to use the restroom and did not want to be examined. She denies any fevers, chills, chest pain or shortness of breath. Review of Systems All systems: negative Past Medical History Past Medical History: Asthma, COPD, GERD/Reflux, Hyperlipidemia, Hypertension, Pneumonia, Seizure Disorder Additional Past Medical History / Comment(s): migraines, epilepsy dx as - last seizure 1 months ago, chronic bronchitis, upset stomach recently, rectal bleeding for past 6-7 months. diabetes for 2 years, recently take off meds r/t weight loss, said no longer diabetic History of Any Multi-Drug Resistant Organisms: None Reported Past Surgical History: Breast Surgery, Orthopedic Surgery Additional Past Surgical History / Comment(s): left fallopian tube removed and oophorectomy, cysts removed from tommy breasts, cyst removed from forehead, left knee arthroscopy x 2, tommy catact sx with lens placed Past Anesthesia/Blood Transfusion Reactions: No Reported Reaction Past Psychological History: Anxiety, Depression Smoking Status: Current every day smoker Past Alcohol Use History: Daily Additional Past Alcohol Use History / Comment(s): smokes < 1 PPD for 30 yrs Past Drug Use History: None Reported - Past Family History Mother Family Medical History: Cancer Father Family Medical History: Cancer Medications and Allergies Home Medications Medication Instructions Recorded Confirmed Type Albuterol Inhaler [Ventolin Hfa 2 puff INHALATION Q6HR PRN 03/25/17 03/16/19 History Inhaler] Atorvastatin [Lipitor] 80 mg PO HS 03/25/17 03/16/19 History FLUoxetine HCL [PROzac] 20 mg PO DAILY 03/25/17 03/16/19 History Hydrocodone/Acetaminophen [[place] 1 tab PO QID 03/25/17 03/16/19 History 10-325] Ranitidine HCl [Zantac] 300 mg PO BID 03/25/17 03/16/19 History Ibuprofen [Motrin] 800 mg PO TID PRN 03/16/19 03/16/19 History Lisinopril [Zestril] 20 mg PO DAILY 03/16/19 03/16/19 History Allergies Allergy/AdvReac Type Severity Reaction Status Date / Time naproxen [From Naprosyn] Allergy Mild Nausea & Verified 03/16/19 14:11 Vomiting propoxyphene Allergy Nausea & Verified 03/16/19 14:11 [From Darvocet-N] Vomiting Surgical - Exam Osteopathic Statement: *. No significant issues noted on an osteopathic structural exam other than those noted in the History and Physical/Consult. Vital Signs Temp Pulse Resp BP Pulse Ox 98.1 F 106 H 18 107/69 99 03/16/19 12:18 03/16/19 12:18 03/16/19 12:18 03/16/19 12:18 03/16/19 12:18 - General well nourished, no distress - Neck trachea midline - Abdomen Soft, mild tenderness to palpation in the left upper and lower quadrant, nondistended, no rebound, no guarding - Rectum Refused rectal exam and stated she needed to use the restroom - Psychiatric oriented to time, oriented to person, oriented to place Results - Labs 03/17/19 07:38 03/17/19 07:38 Abnormal Lab Results - Last 24 Hours (Table) 03/16/19 03/16/19 03/16/19 Range/Units 13:10 13:10 13:10 RBC 3.51 L (3.80-5.40) m/uL MCV 112.9 H (80.0-100.0) fL MCH 37.2 H (25.0-35.0) pg Plt Count (150-450) k/uL Lymphocytes # (1.0-4.8) k/uL Macrocytosis Marked A Sodium 133 L (137-145) mmol/L Chloride (98-107) mmol/L Carbon Dioxide 18 L (22-30) mmol/L Creatinine 2.99 H (0.52-1.04) mg/dL Glucose (74-99) mg/dL Calcium (8.4-10.2) mg/dL Magnesium 1.4 L (1.6-2.3) mg/dL Total Bilirubin 1.4 H (0.2-1.3) mg/dL Unconjugated Bilirubin (0.0-1.1) mg/dL Delta Bilirubin (0.0-0.2) mg/dL AST 656 H (14-36) U/L ALT 209 H (4-34) U/L Alkaline Phosphatase 156 H (38-126) U/L Albumin (3.5-5.0) g/dL Urine Protein (Negative) Urine Blood (Negative) Urine Bacteria (None) /hpf Stool Occult Blood Positive H (Negative) Hep C IgG Ab (Non-Reactive) 03/16/19 03/16/19 03/17/19 Range/Units 14:34 15:10 07:38 RBC 3.19 L (3.80-5.40) m/uL MCV 115.0 H (80.0-100.0) fL MCH 38.5 H (25.0-35.0) pg Plt Count 147 L (150-450) k/uL Lymphocytes # 0.9 L (1.0-4.8) k/uL Macrocytosis Marked A Sodium (137-145) mmol/L Chloride (98-107) mmol/L Carbon Dioxide (22-30) mmol/L Creatinine (0.52-1.04) mg/dL Glucose (74-99) mg/dL Calcium (8.4-10.2) mg/dL Magnesium (1.6-2.3) mg/dL Total Bilirubin (0.2-1.3) mg/dL Unconjugated Bilirubin (0.0-1.1) mg/dL Delta Bilirubin (0.0-0.2) mg/dL AST (14-36) U/L ALT (4-34) U/L Alkaline Phosphatase (38-126) U/L Albumin (3.5-5.0) g/dL Urine Protein Trace H (Negative) Urine Blood Small H (Negative) Urine Bacteria Occasional H (None) /hpf Stool Occult Blood (Negative) Hep C IgG Ab Reactive H (Non-Reactive) 03/17/19 Range/Units 07:38 RBC (3.80-5.40) m/uL MCV (80.0-100.0) fL MCH (25.0-35.0) pg Plt Count (150-450) k/uL Lymphocytes # (1.0-4.8) k/uL Macrocytosis Sodium 136 L (137-145) mmol/L Chloride 108 H (98-107) mmol/L Carbon Dioxide 21 L (22-30) mmol/L Creatinine 1.77 H (0.52-1.04) mg/dL Glucose 67 L (74-99) mg/dL Calcium 7.9 L (8.4-10.2) mg/dL Magnesium 1.3 L (1.6-2.3) mg/dL Total Bilirubin 2.6 H (0.2-1.3) mg/dL Unconjugated Bilirubin 1.2 H (0.0-1.1) mg/dL Delta Bilirubin 1.3 H (0.0-0.2) mg/dL AST 566 H (14-36) U/L ALT 187 H (4-34) U/L Alkaline Phosphatase 127 H (38-126) U/L Albumin 2.8 L (3.5-5.0) g/dL Urine Protein (Negative) Urine Blood (Negative) Urine Bacteria (None) /hpf Stool Occult Blood (Negative) Hep C IgG Ab (Non-Reactive) Diabetes panel 03/16/19 03/17/19 Range/Units 13:10 07:38 Sodium 133 L 136 L (137-145) mmol/L Potassium 4.0 4.3 (3.5-5.1) mmol/L Chloride 102 108 H (98-107) mmol/L Carbon Dioxide 18 L 21 L (22-30) mmol/L BUN 16 15 (7-17) mg/dL Creatinine 2.99 H 1.77 H (0.52-1.04) mg/dL Glucose 74 67 L (74-99) mg/dL Calcium 8.7 7.9 L (8.4-10.2) mg/dL AST 656 H 566 H (14-36) U/L ALT 209 H 187 H (4-34) U/L Alkaline Phosphatase 156 H 127 H (38-126) U/L Total Protein 7.2 6.4 (6.3-8.2) g/dL Albumin 3.5 2.8 L (3.5-5.0) g/dL Calcium panel 03/16/19 03/17/19 Range/Units 13:10 07:38 Calcium 8.7 7.9 L (8.4-10.2) mg/dL Albumin 3.5 2.8 L (3.5-5.0) g/dL Pituitary panel 03/16/19 03/17/19 Range/Units 13:10 07:38 Sodium 133 L 136 L (137-145) mmol/L Potassium 4.0 4.3 (3.5-5.1) mmol/L Chloride 102 108 H (98-107) mmol/L Carbon Dioxide 18 L 21 L (22-30) mmol/L BUN 16 15 (7-17) mg/dL Creatinine 2.99 H 1.77 H (0.52-1.04) mg/dL Glucose 74 67 L (74-99) mg/dL Calcium 8.7 7.9 L (8.4-10.2) mg/dL Adrenal panel 03/16/19 03/17/19 Range/Units 13:10 07:38 Sodium 133 L 136 L (137-145) mmol/L Potassium 4.0 4.3 (3.5-5.1) mmol/L Chloride 102 108 H (98-107) mmol/L Carbon Dioxide 18 L 21 L (22-30) mmol/L BUN 16 15 (7-17) mg/dL Creatinine 2.99 H 1.77 H (0.52-1.04) mg/dL Glucose 74 67 L (74-99) mg/dL Calcium 8.7 7.9 L (8.4-10.2) mg/dL Total Bilirubin 1.4 H 2.6 H (0.2-1.3) mg/dL AST 656 H 566 H (14-36) U/L ALT 209 H 187 H (4-34) U/L Alkaline Phosphatase 156 H 127 H (38-126) U/L Total Protein 7.2 6.4 (6.3-8.2) g/dL Albumin 3.5 2.8 L (3.5-5.0) g/dL Assessment and Plan Plan: 58-year-old female with abdominal pain and possible bleeding hemorrhoid - The patient did refuse a rectal exam as she had to use the restroom during my examination. We will reevaluate at a later time to evaluate for any hemorrhoidal bleeding. Currently, her hemoglobin is stable with no obvious anemia. - CT of the abdomen and pelvis was reviewed. There does appear to be focal colitis in the descending colon. This does coincide with her left abdominal pain. We will continue treatment for colitis. - Hyperbilirubinemia and transaminitis is noted. Hepatitis C antibody was noted to be reactive. Hepatitis workup per gastroenterology - No plan for acute surgical intervention. We will re-try to examine the patient's rectum at a later time as she is currently refusing.
--- NOTE | 2019-03-17 12:51 | CONS ---
CONSULTATION REASON FOR CONSULT: Renal failure. HISTORY OF PRESENT ILLNESS: Patient is a 58-year-old female who was admitted to the hospital yesterday with complaints of increased weakness, fatigue, dizziness. The patient has had rectal bleeding on and off for the past few months. She has underlying history of gastroesophageal reflux disease, epilepsy, migraine, seizure disorder, asthma, COPD, type 2 diabetes. Patient denies any prior history of kidney diseases. Her serum creatinine was noted to be 2.9 mg/dL yesterday. It is down to 1.7 today. Review of previous labs show creatinine 0.9 on 08/11/2018. Patient was on MÓNICA inhibitors at home along with Motrin, which is currently on hold. Blood pressure was not significantly low, although I do see a systolic of 107 mmHg on initial admission. Currently patient is maintained on IV fluids at 120 mL an hour. Her liver enzymes were significantly elevated, which are now decreasing. AST was 656 and ALT was 209. PAST MEDICAL HISTORY: Hypertension, osteoarthritis, type 2 diabetes, gastroesophageal reflux disease, COPD, hyperlipidemia, seizure disorder, pneumonia, migraines, history of chronic rectal bleeding, osteoarthritis. PAST SURGICAL HISTORY: Breast surgery for cysts which were benign, orthopedic surgery for left knee arthroscopy, left oophorectomy and removal of the fallopian tube. SOCIAL HISTORY: Positive for smoking, anxiety, depression. No history of drug abuse or alcohol abuse. MEDICATIONS: At home included Lipitor, vitamin D3, Prozac, [place], albuterol, Singulair, Zantac, Glucophage. ALLERGIES: Include NAPROSYN, DARVOCET, which causes nausea and vomiting, both of them. REVIEW OF SYSTEMS: As per HPI. Other systems negative. PHYSICAL EXAMINATION: On examination, patient is comfortable, awake, not in any acute distress. She states she is feeling better. Blood pressure is 135/73, heart rate 109 per minute, patient is afebrile. Examination of the heart S1, S2. Examination of the lungs, bilateral breath sounds are heard. Abdomen is soft, non-tender. Examination of the lower extremities shows no evidence of edema. EDUCATION AND TRAINING MANAGER exam grossly intact. LABS: Show sodium 136, potassium 4.3, chloride 108, CO2 is 21, BUN 15, creatinine 1.7, hemoglobin 12.3 g/dL. UA shows trace protein, small blood. No cells were seen. Hepatitis C antibody was positive, stool for occult blood was positive. ASSESSMENT: 1. Acute kidney injury appears to be prerenal, currently improving with IV hydration. Patient had also been on NSAIDs at home and she IS advised to avoid the use of NSAIDs post discharge. Patient was on MÓNICA inhibitors which are currently on hold as blood pressure was borderline and I will continue to hold off for now. Continue with IV fluids. UA is unremarkable. We can check an ultrasound of the kidneys, which was actually done already yesterday and it was unremarkable. 2. Elevated liver enzymes. Patient was on statins which are currently on hold. The enzymes were decreasing. 3. Hypertension, currently controlled. 4. History of gastroesophageal reflux disease. 5. History of chronic rectal bleeding with stool for occult blood being positive, currently. 6. Mild metabolic acidosis secondary to renal failure, now improving. 7. Hypomagnesemia, being replaced. PLAN: Continue with IV fluids. Continue to hold off on MÓNICA inhibitors for now. Repeat labs in a.m. Avoid nephrotoxic agents and if blood pressure is elevated, we can resume the MÓNICA inhibitors. Replace magnesium. Thank you for this consultation. Will continue to follow the patient with you during her hospitalization. MMODL / IJN: [id number] /
[2019-03-17 16:54] LABS: % Iron Saturation 81.69 (12.00-45.00); Ferritin 3046.2 ng/mL (10.0-291.0); Folate, Serum >24.0 ng/mL; Iron 116 ug/dL (50-170); Total Iron Binding Capacity 142 ug/dL (228-460)
[2019-03-17] MEDS: ATORVASTATIN 80 MG TAB PO SCH (20:38)
--- NOTE | 2019-03-17 22:44 | P.CONS ---
History of Present Illness - Reason for Consult Consult date: 03/17/19 Abdominal pain, rectal bleeding Requesting physician: Buddy E Sheet - Chief Complaint Weakness - History of Present Illness 50-year-old female with past medical history significant for COPD, diabetes mellitus, gastroesophageal reflux disease, hypertension, hyperlipidemia, seizure disorder, diverticulosis, and a poor colon, hemorrhoidal bleeding and alcohol abuse who presented to the hospital with generalized complaints of weakness and lightheadedness over the past few days. Patient also complains of intermittent bright red blood per rectum which is within going on sporadically over the past 6-7 months. She had been seen for colonoscopy in 03/2017 at which time the patient had polyps removed and diverticulosis noted. Stool testing which was positive on current visit. She also continues to drink alcohol approximately 3- 4 drinks daily over the past 6 months for her reports. She did have an alcohol level greater than 100 on presentation. Other laboratory evaluation was significant for WBC 5.1, hemoglobin 12.3, platelet count 147,000, MCV 113, total bilirubin 2.6, alkaline phosphatase 127, AST 566, ALT 187 with hepatitis C antibody positive. She also had computed tomography scan of the abdomen which showed hepatic steatosis as well as nonspecific colitis of the mid descending colon. She denies any new diarrhea or constipation at this time, but does report loose bowel movements at baseline. She does however report some mild left abdominal pain. Review of Systems REVIEW OF SYSTEMS: CONSTITUTIONAL: Denies any fevers, chills, weight change but does report fatigue. CARDIOVASCULAR: Denies any chest pain, palpitations high or low blood pressures RESPIRATORY: Denies any shortness of breath, hemoptysis or cough. GENITOURINARY: No dysuria or hematuria. MUSCULOSKELETAL: No weakness reported. SKIN: Denies any new rashes or lesions, jaundice or pallor. PSYCHIATRIC: Denies any depression or anxiety. NEUROLOGY: Denies headache, denies any new focal deficits. EARS/NOSE/THROAT: No recent hearing change, congestion, nasal discharge or sore throat. EYES: No pain in eyes, discharge or change in vision. GASTROINTESTINAL: As per HPI. Past Medical History Past Medical History: Asthma, COPD, GERD/Reflux, Hyperlipidemia, Hypertension, Pneumonia, Seizure Disorder Additional Past Medical History / Comment(s): migraines, epilepsy dx as - last seizure 1 months ago, chronic bronchitis, upset stomach recently, rectal bleeding for past 6-7 months. diabetes for 2 years, recently take off meds r/t weight loss, dr said no longer diabetic History of Any Multi-Drug Resistant Organisms: None Reported Past Surgical History: Breast Surgery, Orthopedic Surgery Additional Past Surgical History / Comment(s): left fallopian tube removed and oophorectomy, cysts removed from tommy breasts, cyst removed from forehead, left knee arthroscopy x 2, tommy catact sx with lens placed Past Anesthesia/Blood Transfusion Reactions: No Reported Reaction Past Psychological History: Anxiety, Depression Smoking Status: Current every day smoker Past Alcohol Use History: Daily Additional Past Alcohol Use History / Comment(s): smokes < 1 PPD for 30 yrs Past Drug Use History: None Reported - Past Family History Mother Family Medical History: Cancer Father Family Medical History: Cancer Medications and Allergies Home Medications Medication Instructions Recorded Confirmed Type Albuterol Inhaler [Ventolin Hfa 2 puff INHALATION Q6HR PRN 03/25/17 03/16/19 History Inhaler] Atorvastatin [Lipitor] 80 mg PO HS 03/25/17 03/16/19 History FLUoxetine HCL [PROzac] 20 mg PO DAILY 03/25/17 03/16/19 History Hydrocodone/Acetaminophen [[place] 1 tab PO QID 03/25/17 03/16/19 History 10-325] Ranitidine HCl [Zantac] 300 mg PO BID 03/25/17 03/16/19 History Ibuprofen [Motrin] 800 mg PO TID PRN 03/16/19 03/16/19 History Lisinopril [Zestril] 20 mg PO DAILY 03/16/19 03/16/19 History Allergies Allergy/AdvReac Type Severity Reaction Status Date / Time naproxen [From Naprosyn] Allergy Mild Nausea & Verified 03/16/19 14:11 Vomiting propoxyphene Allergy Nausea & Verified 03/16/19 14:11 [From Darvocet-N] Vomiting Physical Exam Vitals: Vital Signs Temp Pulse Pulse Resp BP BP Pulse Ox 03/17/19 12:14 97.7 F 98 16 158/84 98 03/17/19 05:51 98.2 F 109 H 18 135/73 96 03/16/19 21:13 98 F 110 H 18 167/95 97 03/16/19 20:15 98.4 F 97 20 107/74 97 03/16/19 17:39 98.5 F 108 H 18 133/89 98 03/16/19 15:05 105 H 18 118/82 96 Intake and Output 03/16/19 03/17/19 03/17/19 22:59 06:59 14:59 Intake Total 0 Balance 0 Intake: Oral 0 Other: Voiding Method Toilet # Voids 1 1 1 Weight 64.5 kg On physical examination, patient appears comfortable in no apparent distress. HEAD: Normocephalic, atraumatic. EYES: No scleral icterus. No conjunctival injection. MOUTH: No lesions, tongue midline. NECK: Trachea midline, no gross abnormalities. CHEST: Clear to auscultation with no wheezing or rhonchi appreciated. HEART: Regular rate and rhythm. ABDOMEN: Soft, obese, nontender to palpation. Bowel sounds are positive. No organomegaly. No guarding or rigidity. EXTREMITIES: No pedal edema. SKIN: No rashes, no jaundice. NEUROLOGIC: Alert and oriented x3 as noted above patient is tremulous. No focal deficits. Results CBC & Chem 7: 03/17/19 07:38 03/17/19 07:38 Labs: Abnormal Lab Results - Last 24 Hours (Table) 03/16/19 03/16/19 03/17/19 Range/Units 14:34 15:10 07:38 RBC 3.19 L (3.80-5.40) m/uL MCV 115.0 H (80.0-100.0) fL MCH 38.5 H (25.0-35.0) pg Plt Count 147 L (150-450) k/uL Lymphocytes # 0.9 L (1.0-4.8) k/uL Macrocytosis Marked A Sodium (137-145) mmol/L Chloride (98-107) mmol/L Carbon Dioxide (22-30) mmol/L Creatinine (0.52-1.04) mg/dL Glucose (74-99) mg/dL Calcium (8.4-10.2) mg/dL Magnesium (1.6-2.3) mg/dL Total Bilirubin (0.2-1.3) mg/dL Unconjugated Bilirubin (0.0-1.1) mg/dL Delta Bilirubin (0.0-0.2) mg/dL AST (14-36) U/L ALT (4-34) U/L Alkaline Phosphatase (38-126) U/L Albumin (3.5-5.0) g/dL Urine Protein Trace H (Negative) Urine Blood Small H (Negative) Urine Bacteria Occasional H (None) /hpf Hep C IgG Ab Reactive H (Non-Reactive) 03/17/19 Range/Units 07:38 RBC (3.80-5.40) m/uL MCV (80.0-100.0) fL MCH (25.0-35.0) pg Plt Count (150-450) k/uL Lymphocytes # (1.0-4.8) k/uL Macrocytosis Sodium 136 L (137-145) mmol/L Chloride 108 H (98-107) mmol/L Carbon Dioxide 21 L (22-30) mmol/L Creatinine 1.77 H (0.52-1.04) mg/dL Glucose 67 L (74-99) mg/dL Calcium 7.9 L (8.4-10.2) mg/dL Magnesium 1.3 L (1.6-2.3) mg/dL Total Bilirubin 2.6 H (0.2-1.3) mg/dL Unconjugated Bilirubin 1.2 H (0.0-1.1) mg/dL Delta Bilirubin 1.3 H (0.0-0.2) mg/dL AST 566 H (14-36) U/L ALT 187 H (4-34) U/L Alkaline Phosphatase 127 H (38-126) U/L Albumin 2.8 L (3.5-5.0) g/dL Urine Protein (Negative) Urine Blood (Negative) Urine Bacteria (None) /hpf Hep C IgG Ab (Non-Reactive) CT scan - abdomen: report reviewed (Computed tomography scan of the abdomen significant for mid descending colitis and hepatic steatosis) Assessment and Plan (1) Alcoholic hepatitis Narrative/Plan: 58-year-old female with multiple medical comorbidities including diverticulosis and colon polyps noted on prior colonoscopy in 03/2017 who presented due to complaints of weakness and blood per rectum, at which time she was found to be intoxicated. The patient has been drinking 3-4 drinks daily for months for her reports and was found to be intoxicated as mentioned with liver enzymes suggestive of acute alcoholic hepatitis with bilirubin 2.6, alkaline phosphatase 127, AST 566 and ALT 187. Patient also found to have antibodies to hepatitis C. She complains of intermittent blood per rectum and chronic diarrhea with no findings to explain diarrhea on previous colonoscopy. She did have finding on CT of the abdomen of hepatic steatosis with some colitis noted in the mid descending colon. Current Visit: Yes Status: Acute Code(s): K70.10 - ALCOHOLIC HEPATITIS WITHOUT ASCITES SNOMED Code(s): 146056425 (2) Hemorrhoid Current Visit: Yes Status: Acute Code(s): K64.9 - UNSPECIFIED HEMORRHOIDS SNOMED Code(s): 06953407 (3) Transaminitis Current Visit: Yes Status: Acute Code(s): R74.0 - NONSPEC ELEV OF LEVELS OF TRANSAMNS & LACTIC ACID DEHYDRGNSE SNOMED Code(s): 433161877 Plan: Supportive care Clear liquid diet, advance as tolerated Continue to monitor for signs or symptoms of alcohol withdrawal Alcohol abstinence Continue to monitor hemoglobin and hematocrit and transfuse as needed Local hemorrhoidal treatment as needed, surgical service following Hepatitis C laboratory evaluation ordered with genotype and viral load pending, if positive the patient will need follow-up after discharge for evaluation of possible treatment Continue other medical treatment No plans for endoscopic evaluation at this time Thank you for allowing us to participate in the care of the patient
[2019-03-18] MEDS: HYDROcodone/APAP 10-325MG 1 EACH TAB PO PRN ×4 (01:02→18:22)
[2019-03-18] MEDS: SODIUM CHLORIDE 0.9% 1,000 ML IV SCH ×3 (04:20→15:45)
[2019-03-18] MEDS: GABAPENTIN 100 MG CAP PO SCH ×2 (07:24→20:47)
[2019-03-18] MEDS: NICOTINE 21MG/24HR PATCH TRANSDERM SCH (07:24)
[2019-03-18] MEDS: PANTOPRAZOLE 40 MG/10 ML VIAL IVP SCH (07:24)
[2019-03-18] MEDS: FLUoxetine HCL 20 MG CAP PO SCH (07:25)
[2019-03-18] MEDS: THIAMINE 100 MG TAB PO SCH ×2 (07:25→17:05)
[2019-03-18 08:08] LABS: Basophils % (A) 1 %; Eosinophils # (A) 0.4 k/uL (0-0.7); Eosinophils % (A) 8 %; HCT 36.4 % (34.0-46.0); HGB 12.3 gm/dL (11.4-16.0); Lymphocytes # (A) 1.1 k/uL (1.0-4.8); Lymphocytes % (A) 25 %; MCH 38.6 pg (25.0-35.0); MCHC 33.9 g/dL (31.0-37.0); MCV 113.8 fL (80.0-100.0); Macrocytosis Marked; Mean Platelet Volume 7.7; Monocytes # (A) 0.3 k/uL (0-1.0); Monocytes % (A) 6 %; Neutrophils # (A) 2.5 k/uL (1.3-7.7); Neutrophils % (A) 57 %; Platelet Count 149 k/uL (150-450); RDW 14.6 % (11.5-15.5); WBC 4.4 k/uL (3.8-10.6)
--- NOTE | 2019-03-18 08:21 | P.PN ---
Subjective This is a pleasant 58 years old female with past medical history of asthma/COPD, diabetes mellitus, gastroesophageal reflux disease, hypertension, h yperlipidemia, seizure disorder, migraines, epilepsy since entrance, chronic bronchitis, rectal bleeding for the past 6 or 7 months. Patient presents because she feels generally weak with lightheadedness and dizziness for the last few days. Her main concerns was skin tack around the rectal area with Doppler blood has been going on for 6-7 months. She went to see Dr. martinez nurse practitioner: January and she missed her follow-up appointment on February. Patient has decreased appetite She denies nausea vomiting, she has chronic diarrhea and mild left abdominal pain. She denies chest pain or dyspnea. No urine abnormality. Patient smokes about 1 pack per day, she drinks about 2-3 drinks of alcohol every days but no illicit tracts Patient as well as tachycardic 101-2106, respiratory vitals were unremarkable. Hemoglobin 13.0, a CBC is unremarkable. Sodium 133, creatinine is elevated at 2.9, non-baseline, magnesium 1.4, liver enzymes are elevated AST 656 and ALT 209 with bilirubin 1.4, occult blood in stool was positive In the emergency room patient was started on normal son 120 mL per hour 03/17/2019 Patient is awake and alert, she has minimal craving for alcohol with mild sammi mor. her CIWA score is wanted to so far. She is mildly tachycardic at 108-1/10, respiratory vitals Stable and blood pressure 135/73, she is not on antihypertensive medication and she is currently on normal saline at 1 20 mL/h. Labs are still pending. Her hepatitis C IgG antibodies are positive. However patient today is complaining of from lower abdominal pain, mainly on the left side and also upper abdomen. She has some tenderness and minimal guarding. Her abdominal pain started yesterday night as she is telling me and is related about 8/10. Nonspecific nonradiating. She did not have bowel movement for the last 2 days. No vomiting. Ultrasound of the renal system from yesterday showi ng no hydronephrosis or masses. Also patient was complaining of from back pain. Anemia workup is still pending. 03/18/2019 Patient thinks she feels the same as yesterday, she still with left lower qu adrant pain and tenderness however she is less anxious. CAT scan of the abdomen and pelvis shows left sided colitis. She is hemodynamically stable. CBC is a stable compared to yesterday. BMP and LFTs are pending. ferritin is elevated more than 3000. Patient is tested positive for hepatitis C IgG antibody, patient is informed of her new diagnosis of biopsy, she was not aware of that. Patient was instructed to follow up with GI upon discharge and she agrees to discuss with surgery team, most likely patient has mild hemorrhoids related to wiping from her last bowel movement. Local steroids as recommended We are Going to add antibiotic. Continue with IV f, as hemoglobin remains stable luids normal saline and CIWA protocol. Her CIWA score is 1-2. We going to start subcu heparin Review of systems: CONSTITUTIONAL: No fever, no malaise, no fatigue. HEENT: No recent visual problems or hearing problems. Denied any sore throat. CARDIOVASCULAR: No orthopnea, PND, no palpitations, no syncope. PULMONARY: No shortness of breath, no cough, no hemoptysis. NEUROLOGICAL: No headaches, no weakness, no numbness. HEMATOLOGICAL: Denies any bleeding or petechiae. GENITOURINARY: Denies any burning micturition, frequency, or urgency. MUSCULOSKELETAL/RHEUMATOLOGICAL: Denies any joint pain, swelling, or any muscle pain. ENDOCRINE: Denies any polyuria or polydipsia. Active Medications Generic Name Dose Route Start Last Admin Trade Name Freq PRN Reason Stop Dose Admin Acetaminophen 650 mg 03/16/19 17:11 03/17/19 06:12 Tylenol Tab PO 650 mg Q6HR PRN Administration Fever and/ or MILD Pain Hydrocodone Bitart/Acetaminophen 1 each 03/17/19 09:00 03/18/19 07:24 [place] 10 PO 1 each QID PRN Administration Pain Atorvastatin Calcium 80 mg 03/17/19 21:00 03/17/19 20:38 Lipitor PO 80 mg HS [place] Administration Fluoxetine HCl 20 mg 03/17/19 09:00 03/18/19 07:25 Prozac PO 20 mg DAILY [place] Administration Gabapentin 100 mg 03/16/19 14:21 03/18/19 07:24 Neurontin PO 100 mg BID [place] Administration Sodium Chloride 1,000 mls @ 120 mls/hr 03/17/19 00:00 03/18/19 04:20 Saline 0.9% IV 120 mls/hr .Q8H20M [place] Administration Lorazepam 1 mg 03/16/19 14:22 Ativan IV Q2HR PRN CIWA 8 or 9 Lorazepam 1 mg 03/16/19 14:22 Ativan IV Q1HR PRN CIWA 10 to 15 Lorazepam 2 mg 03/16/19 14:22 Ativan IV 03/18/19 14:22 Q10M PRN CIWA 16 or higher Miscellaneous Information 1 each 03/17/19 09:55 Magnesium Per Protocol MISCELLANE DAILY PRN Per Protocol Protocol Morphine Sulfate 4 mg 03/17/19 07:02 03/17/19 08:42 Morphine Sulfate (Inj) IVP 4 mg Q4HR PRN Administration SEVERE Pain Naloxone HCl 0.2 mg 03/16/19 13:59 Narcan IV Q2M PRN Opioid Reversal Nicotine 1 patch 03/16/19 14:15 03/18/19 07:24 Habitrol 21mg/24hr Patch TRANSDERM 1 patch DAILY [place] Administration Pantoprazole Sodium 40 mg 03/16/19 14:15 03/18/19 07:24 Protonix IVP 40 mg DAILY [place] Administration Thiamine HCl 100 mg 03/16/19 17:30 03/18/19 07:25 Vitamin B-1 PO 100 mg BID-W/MEALS [place] Administration Objective - Vital Signs Vital signs: Vital Signs Temp 98.1 F 03/18/19 05:00 Pulse 90 03/18/19 05:00 Resp 16 03/18/19 05:00 BP 111/69 03/18/19 05:00 Pulse Ox 97 03/18/19 05:00 Intake & Output 03/17/19 03/18/19 03/18/19 18:59 06:59 18:59 Intake Total 1440 Balance 1440 Intake: Intake, IV Titration 1440 Amount Sodium Chloride 0.9% 1, 1440 000 ml @ 120 mls/hr IV . Q8H20M [place] Rx#:[id number] Other: Voiding Method Toilet # Voids 2 # Bowel Movements 3 - Exam -GENERAL: The patient is alert and oriented x3, not in any acute distress. Patient is generally weak HEENT: Pupils are round and equally reacting to light. EOMI. No scleral icterus. No conjunctival pallor. Normocephalic, atraumatic. No pharyngeal erythema. No thyromegaly. CARDIOVASCULAR: S1 and S2 present. No murmurs, rubs, or gallops. PULMONARY: Chest is clear to auscultation, no wheezing or crackles. -ABDOMEN: Soft, left and upper abdominal tenderness with minimal guarding and no rebound tenderness, nondistended, normoactive bowel sounds. No palpable organom egaly. MUSCULOSKELETAL: No joint swelling or deformity. EXTREMITIES: No cyanosis, clubbing, or pedal edema. NEUROLOGICAL: Gross neurological examination did not reveal any focal deficits. SKIN: No rashes. No petechiae - Labs CBC & Chem 7: 03/18/19 07:34 03/17/19 07:38 Labs: Abnormal Lab Results - Last 24 Hours (Table) 03/17/19 03/17/19 03/18/19 Range/Units 07:38 07:38 07:34 RBC 3.19 L 3.20 L (3.80-5.40) m/uL MCV 115.0 H 113.8 H (80.0-100.0) fL MCH 38.5 H 38.6 H (25.0-35.0) pg Plt Count 147 L 149 L (150-450) k/uL Lymphocytes # 0.9 L (1.0-4.8) k/uL Macrocytosis Marked A Marked A Sodium 136 L (137-145) mmol/L Chloride 108 H (98-107) mmol/L Carbon Dioxide 21 L (22-30) mmol/L Creatinine 1.77 H (0.52-1.04) mg/dL Glucose 67 L (74-99) mg/dL Calcium 7.9 L (8.4-10.2) mg/dL Magnesium 1.3 L (1.6-2.3) mg/dL TIBC 142 L (228-460) ug/dL % Saturation 81.69 H (12.00-45.00) Ferritin 3046.2 H (10.0-291.0) ng/mL Total Bilirubin 2.6 H (0.2-1.3) mg/dL Unconjugated Bilirubin 1.2 H (0.0-1.1) mg/dL Delta Bilirubin 1.3 H (0.0-0.2) mg/dL AST 566 H (14-36) U/L ALT 187 H (4-34) U/L Alkaline Phosphatase 127 H (38-126) U/L Albumin 2.8 L (3.5-5.0) g/dL Vitamin B12 1865.0 H (200.0-944.0) pg/mL Assessment and Plan Assessment: Acute Left lower abdomen and upper abdominal pain and tenderness, related descending colitis Elevated liver enzymes, mostly related to alcoholic hepatitis, and hepatitis C Diagnosis of hepatitis C, patient is aware with her new diagnosis Acute kidney injury , mostly prerenal related to her diarrhea, bleeding, decrease intake and appetite. Improving alcohol abuse and dependence High-risk for alcohol withdrawal and DTs Positive occult blood in stool, mostly related to hemorrhoids Hypomagnesemia Nicotine dependence Chronic diarrhea Asthma/COPD Diabetes mellitus Gastroesophageal reflux disease Hypertension Hyperlipidemia Seizure disorder since infancy Migraine Chronic bronchitis Rectal bleeding about 6-7 months ago Plan: This is a pleasant 58 years old female who presents with acute kidney injury and positive blood in the stool suspicious for GI bleed with elevated liver enzymes. Continue with Protonix, and GI consult. Continue with IV fluid and nephrology consult. With the patient on CIWA protocol and vitamins. Follow-up surgical consult . Pain management, start antibiotics with Flagyl and ceftriaxone Labs and medication were reviewed.. Continue same treatment. Continue with symptomatic treatment. Resume home medication. Monitor lytes and vitals. DVT and GI prophylaxis. Further recommendations of the clinical course of the jon ent DVT prophylaxis: Restart subcu heparin GI Prophylaxis: PPI PT/OT: Pending Prognosis is guarded
--- NOTE | 2019-03-18 08:32 | P.PN ---
Subjective Progress Note Date: 03/18/19 Pt seen and examined at bedside. complains of some bleeding with bowel movement. States she is having diarrhea episodes and has has 4 BMs in the last day. She is tolerating a CLD. Objective - Vital Signs Vital signs: Vital Signs Temp 98.1 F 03/18/19 05:00 Pulse 90 03/18/19 05:00 Resp 16 03/18/19 05:00 BP 111/69 03/18/19 05:00 Pulse Ox 97 03/18/19 05:00 Intake & Output 03/17/19 03/18/19 03/18/19 18:59 06:59 18:59 Intake Total 1440 Balance 1440 Intake: Intake, IV Titration 1440 Amount Sodium Chloride 0.9% 1, 1440 000 ml @ 120 mls/hr IV . Q8H20M [place] Rx#:[id number] Other: Voiding Method Toilet # Voids 2 # Bowel Movements 3 - Constitutional General appearance: Present: cooperative - Gastrointestinal Gastrointestinal Comment(s): soft, nontender, nondistended, no rebound, no guarding - Psychiatric Psychiatric: Present: A&O x's 3 - Additional findings Additional findings: Rectum: External hemorrhoid - not thrombosed, no active bleeding - Labs CBC & Chem 7: 03/18/19 07:34 03/17/19 07:38 Labs: Abnormal Lab Results - Last 24 Hours (Table) 03/17/19 03/17/19 03/18/19 Range/Units 07:38 07:38 07:34 RBC 3.19 L 3.20 L (3.80-5.40) m/uL MCV 115.0 H 113.8 H (80.0-100.0) fL MCH 38.5 H 38.6 H (25.0-35.0) pg Plt Count 147 L 149 L (150-450) k/uL Lymphocytes # 0.9 L (1.0-4.8) k/uL Macrocytosis Marked A Marked A TIBC 142 L (228-460) ug/dL % Saturation 81.69 H (12.00-45.00) Ferritin 3046.2 H (10.0-291.0) ng/mL Vitamin B12 1865.0 H (200.0-944.0) pg/mL Assessment and Plan Plan: 58-year-old female with abdominal pain and possible bleeding hemorrhoid - The patient was amenable to rectal exam. No active bleeding. Will start lidocaine ointment and anusol supp. - CT of the abdomen and pelvis was reviewed. There does appear to be focal colitis in the descending colon. This does coincide with her left abdominal pain. We will continue treatment for colitis. - Hyperbilirubinemia and transaminitis is noted. Hepatitis C antibody was noted to be reactive. Hepatitis workup per gastroenterology - No plan for acute surgical intervention. Case discussed with admitting Dr. Katerina pichardo.
[2019-03-18 08:41] LABS: Albumin 2.7 g/dL (3.5-5.0); Bilirubin, Delta 1.3 mg/dL (0.0-0.2); Bilirubin,Unconjugated 0.8 mg/dL (0.0-1.1); Calcium 7.5 mg/dL (8.4-10.2); Magnesium 1.6 mg/dL (1.6-2.3); Potassium 3.6 mmol/L (3.5-5.1); Total Bilirubin 2.1 mg/dL (0.2-1.3); Total Protein 5.8 g/dL (6.3-8.2)
[2019-03-18] MEDS: LIDOCAINE 2% GEL 30 ML TUBE TOPICAL SCH ×2 (09:19→20:48)
[2019-03-18] MEDS: HYDROCORTISONE SUPPOSITORY 25 MG SUPP RECTAL SCH (09:20)
[2019-03-18] MEDS: HEPARIN SODIUM,PORCINE 5,000 UNIT/ML 1 ML VIAL SQ SCH ×2 (09:30→20:47)
[2019-03-18] MEDS: metroNIDAZOLE-NS PMX 500 MG in SALINE 1 100ML.BAG IVPB SCH ×3 (09:58→23:50)
--- NOTE | 2019-03-18 19:47 | PN ---
PROGRESS NOTE Patient is seen for followup for acute kidney injury. She was admitted to the hospital with weakness and dizziness. Patient also has exacerbation of COPD and possible underlying pneumonia. She is maintained on antibiotics. Creatinine has improved significantly, with creatinine going down from 2.9 to 1.12. Patient is maintained on IV fluids at 75 mL/hour. PHYSICAL EXAMINATION: On examination today, blood pressure was 136/87, heart rate 88 per minute. She is afebrile. EXAMINATION OF THE HEART: S1 and S2. EXAMINATION OF LUNGS: Bilateral breath sounds are heard. ABDOMEN: Soft, non-tender. Examination of lower extremities shows no significant edema. 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 LABS: Hemoglobin 12.3. Sodium 135, potassium 3.6, chloride 107, BUN 9, serum creatinine 1.12. ASSESSMENT: 1. Acute kidney injury, prerenal, currently significantly improved. 2. Elevated liver enzymes, now decreasing. Statins are on hold. GI is on consult. 3. History of gastroesophageal reflux disease. 4. History of chronic rectal bleeding with positive stool for occult blood. 5. Mild metabolic acidosis, now improved. 6. Hypomagnesemia, status post replacement. PLAN: Continue IV fluids. Continue to avoid nephrotoxic agents. Repeat labs in a.m. MMODL / IJN: [id number] /
[2019-03-18 20:14] LABS: Glucose,Whole Blood 140 mg/dL (75-99)
[2019-03-18] MEDS: ATORVASTATIN 80 MG TAB PO SCH (20:47)
--- NOTE | 2019-03-18 23:27 | P.PN ---
Subjective Progress Note Date: 03/18/19 Principal diagnosis: Alcoholic hepatitis, hepatitis C, blood per rectum Patient is seen lying in bed. Still reporting some left-sided abdominal pain but asking for diet to be advanced. No nausea or vomiting. 3 loose bowel movements today. Objective - Vital Signs Vital signs: Vital Signs Temp 98.1 F 03/18/19 21:00 Pulse 94 03/18/19 21:00 Resp 16 03/18/19 21:00 BP 144/90 03/18/19 21:00 Pulse Ox 99 03/18/19 21:00 Intake & Output 03/18/19 03/18/19 03/19/19 06:59 18:59 06:59 Intake Total 1440 2450 590 Balance 1440 2450 590 Intake: Intake, IV Titration 1440 900 Amount Sodium Chloride 0.9% 1, 1440 750 000 ml @ 50 mls/hr IV . Q20H [place] Rx#:[id number] cefTRIAXone 1 gm In 50 Sodium Chloride 0.9% 50 ml @ 100 mls/hr IVPB Q24HR [place] Rx#:[id number] metroNIDAZOLE-NS PMX 500 100 mg In Saline 1 100ml.bag @ 100 mls/hr IVPB Q8HR [place] Rx#:[id number] Oral 1550 590 Other: Voiding Method Toilet Toilet Toilet # Voids 1 1 - Exam On physical examination, patient appears comfortable in no apparent distress. HEAD: Normocephalic, atraumatic. EYES: No scleral icterus. No conjunctival injection. MOUTH: No lesions, tongue midline. NECK: Trachea midline, no gross abnormalities. ABDOMEN: Soft, obese, mildly tender to palpation. Bowel sounds are positive. No organomegaly. No guarding or rigidity. EXTREMITIES: No pedal edema. SKIN: No rashes, no jaundice. NEUROLOGIC: Alert and oriented x3. No focal deficits. - Labs CBC & Chem 7: 03/18/19 07:34 03/18/19 07:34 Labs: Abnormal Lab Results - Last 24 Hours (Table) 03/18/19 03/18/19 03/18/19 Range/Units 07:34 07:34 20:13 RBC 3.20 L (3.80-5.40) m/uL MCV 113.8 H (80.0-100.0) fL MCH 38.6 H (25.0-35.0) pg Plt Count 149 L (150-450) k/uL Macrocytosis Marked A Sodium 135 L (137-145) mmol/L Carbon Dioxide 21 L (22-30) mmol/L Creatinine 1.12 H (0.52-1.04) mg/dL Glucose 72 L (74-99) mg/dL POC Glucose (mg/dL) 140 H (75-99) mg/dL Calcium 7.5 L (8.4-10.2) mg/dL Total Bilirubin 2.1 H (0.2-1.3) mg/dL Delta Bilirubin 1.3 H (0.0-0.2) mg/dL AST 422 H (14-36) U/L ALT 169 H (4-34) U/L Alkaline Phosphatase 134 H (38-126) U/L Total Protein 5.8 L (6.3-8.2) g/dL Albumin 2.7 L (3.5-5.0) g/dL Assessment and Plan (1) Alcoholic hepatitis Narrative/Plan: 58-year-old female with multiple medical comorbidities including diverticulosis and colon polyps noted on prior colonoscopy in 03/2017 who presented due to complaints of weakness and blood per rectum, at which time she was found to be intoxicated. The patient has been drinking 3-4 drinks daily for months for her reports and was found to be intoxicated as mentioned with liver enzymes suggestive of acute alcoholic hepatitis with bilirubin 2.6, alkaline phosphatase 127, AST 566 and ALT 187. Patient also found to have antibodies to hepatitis C. She complains of intermittent blood per rectum and chronic diarrhea with no findings to explain diarrhea on previous colonoscopy. She did have finding on CT of the abdomen of hepatic steatosis with some colitis noted in the mid descending colon. Current Visit: Yes Status: Acute Code(s): K70.10 - ALCOHOLIC HEPATITIS WITHOUT ASCITES SNOMED Code(s): 970165633 (2) Hemorrhoid Current Visit: Yes Status: Acute Code(s): K64.9 - UNSPECIFIED HEMORRHOIDS SNOMED Code(s): 99584719 (3) Transaminitis Current Visit: Yes Status: Acute Code(s): R74.0 - NONSPEC ELEV OF LEVELS OF TRANSAMNS & LACTIC ACID DEHYDRGNSE SNOMED Code(s): 242679166 Plan: Supportive care Clear liquid diet, advance as tolerated Continue to monitor for signs or symptoms of alcohol withdrawal Alcohol abstinence Continue to monitor hemoglobin and hematocrit and transfuse as needed Local hemorrhoidal treatment as needed, surgical service following Hepatitis C laboratory evaluation ordered with genotype and viral load pending, if positive the patient will need follow-up after discharge for evaluation of possible treatment Elevated iron levels likely secondary to underlying hepatitis C and alcoholic hepatitis, however patient have further evaluation with hemochromatosis workup after discharge Continue other medical treatment No plans for endoscopic evaluation at this time Thank you for allowing us to participate in the care of the patient
[2019-03-19] MEDS: HYDROcodone/APAP 10-325MG 1 EACH TAB PO PRN ×4 (04:55→21:03)
[2019-03-19] MEDS ORDERED: diphenhydrAMINE 50 MG/ML 1 ML VIAL IVP PRN (07:27)
--- NOTE | 2019-03-19 07:44 | P.PN ---
Subjective This is a pleasant 58 years old female with past medical history of asthma/COPD, diabetes mellitus, gastroesophageal reflux disease, hypertension, h yperlipidemia, seizure disorder, migraines, epilepsy since entrance, chronic bronchitis, rectal bleeding for the past 6 or 7 months. Patient presents because she feels generally weak with lightheadedness and dizziness for the last few days. Her main concerns was skin tack around the rectal area with Doppler blood has been going on for 6-7 months. She went to see Dr. martinez nurse practitioner: January and she missed her follow-up appointment on February. Patient has decreased appetite She denies nausea vomiting, she has chronic diarrhea and mild left abdominal pain. She denies chest pain or dyspnea. No urine abnormality. Patient smokes about 1 pack per day, she drinks about 2-3 drinks of alcohol every days but no illicit tracts Patient as well as tachycardic 101-2106, respiratory vitals were unremarkable. Hemoglobin 13.0, a CBC is unremarkable. Sodium 133, creatinine is elevated at 2.9, non-baseline, magnesium 1.4, liver enzymes are elevated AST 656 and ALT 209 with bilirubin 1.4, occult blood in stool was positive In the emergency room patient was started on normal son 120 mL per hour 03/17/2019 Patient is awake and alert, she has minimal craving for alcohol with mild sammi mor. her CIWA score is wanted to so far. She is mildly tachycardic at 108-1/10, respiratory vitals Stable and blood pressure 135/73, she is not on antihypertensive medication and she is currently on normal saline at 1 20 mL/h. Labs are still pending. Her hepatitis C IgG antibodies are positive. However patient today is complaining of from lower abdominal pain, mainly on the left side and also upper abdomen. She has some tenderness and minimal guarding. Her abdominal pain started yesterday night as she is telling me and is related about 8/10. Nonspecific nonradiating. She did not have bowel movement for the last 2 days. No vomiting. Ultrasound of the renal system from yesterday showi ng no hydronephrosis or masses. Also patient was complaining of from back pain. Anemia workup is still pending. 03/18/2019 Patient thinks she feels the same as yesterday, she still with left lower qu adrant pain and tenderness however she is less anxious. CAT scan of the abdomen and pelvis shows left sided colitis. She is hemodynamically stable. CBC is a stable compared to yesterday. BMP and LFTs are pending. ferritin is elevated more than 3000. Patient is tested positive for hepatitis C IgG antibody, patient is informed of her new diagnosis of biopsy, she was not aware of that. Patient was instructed to follow up with GI upon discharge and she agrees to discuss with surgery team, most likely patient has mild hemorrhoids related to wiping from her last bowel movement. Local steroids as recommended We are Going to add antibiotic. Continue with IV f, as hemoglobin remains stable luids normal saline and CIWA protocol. Her CIWA score is 1-2. We going to start subcu heparin 03/19/2019 Patient is awake and oriented, she is not craving for alcohol and her CIWA score was 1-2 since yesterday. However patient she still have signs symptoms of gastroenteritis, she still have nausea and vomiting yesterday and this morning, she still have left upper and lower quadrant abdominal pain and tenderness related to her descending colitis, She remains on Rocephin and Flagyl and normal saline at 75 mL/h. Continue with Zofran, Benadryl for nausea vomiting and decrease her pain medication to every 4 hours. Labs from today are pending, we going to follow it up Objective - Vital Signs Vital signs: Vital Signs Temp 98.5 F 03/19/19 04:47 Pulse 60 03/19/19 04:47 Resp 16 03/19/19 04:47 BP 125/78 03/19/19 04:47 Pulse Ox 98 03/19/19 04:47 Intake & Output 03/18/19 03/19/19 03/19/19 18:59 06:59 18:59 Intake Total 2450 1180 Balance 2450 1180 Intake: Intake, IV Titration 900 Amount Sodium Chloride 0.9% 1, 750 000 ml @ 50 mls/hr IV . Q20H [place] Rx#:[id number] cefTRIAXone 1 gm In 50 Sodium Chloride 0.9% 50 ml @ 100 mls/hr IVPB Q24HR [place] Rx#:[id number] metroNIDAZOLE-NS PMX 500 100 mg In Saline 1 100ml.bag @ 100 mls/hr IVPB Q8HR [place] Rx#:[id number] Oral 1550 1180 Other: Voiding Method Toilet Toilet # Voids 1 3 - Exam -GENERAL: The patient is alert and oriented x3, not in any acute distress. Patient is generally weak HEENT: Pupils are round and equally reacting to light. EOMI. No scleral icterus. No conjunctival pallor. Normocephalic, atraumatic. No pharyngeal erythema. No thyromegaly. CARDIOVASCULAR: S1 and S2 present. No murmurs, rubs, or gallops. PULMONARY: Chest is clear to auscultation, no wheezing or crackles. -ABDOMEN: Soft, left and upper abdominal tenderness with minimal guarding and no rebound tenderness, nondistended, normoactive bowel sounds. No palpable organomegaly. MUSCULOSKELETAL: No joint swelling or deformity. EXTREMITIES: No cyanosis, clubbing, or pedal edema. NEUROLOGICAL: Gross neurological examination did not reveal any focal deficits. SKIN: No rashes. No petechiae - Labs CBC & Chem 7: 03/18/19 07:34 03/18/19 07:34 Labs: Abnormal Lab Results - Last 24 Hours (Table) 03/18/19 03/18/19 03/18/19 Range/Units 07:34 07:34 20:13 RBC 3.20 L (3.80-5.40) m/uL MCV 113.8 H (80.0-100.0) fL MCH 38.6 H (25.0-35.0) pg Plt Count 149 L (150-450) k/uL Macrocytosis Marked A Sodium 135 L (137-145) mmol/L Carbon Dioxide 21 L (22-30) mmol/L Creatinine 1.12 H (0.52-1.04) mg/dL Glucose 72 L (74-99) mg/dL POC Glucose (mg/dL) 140 H (75-99) mg/dL Calcium 7.5 L (8.4-10.2) mg/dL Total Bilirubin 2.1 H (0.2-1.3) mg/dL Delta Bilirubin 1.3 H (0.0-0.2) mg/dL AST 422 H (14-36) U/L ALT 169 H (4-34) U/L Alkaline Phosphatase 134 H (38-126) U/L Total Protein 5.8 L (6.3-8.2) g/dL Albumin 2.7 L (3.5-5.0) g/dL Assessment and Plan Assessment: Acute Left lower abdomen and upper abdominal pain and tenderness, related descending colitis Elevated liver enzymes, mostly related to alcoholic hepatitis, and hepatitis C Diagnosis of hepatitis C, patient is aware with her new diagnosis Acute kidney injury , mostly prerenal related to her diarrhea, bleeding, decreas e intake and appetite. Improving alcohol abuse and dependence High-risk for alcohol withdrawal and DTs Positive occult blood in stool, mostly related to hemorrhoids Hypomagnesemia Nicotine dependence Chronic diarrhea Asthma/COPD Diabetes mellitus Gastroesophageal reflux disease Hypertension Hyperlipidemia Seizure disorder since infancy Migraine Chronic bronchitis Rectal bleeding about 6-7 months ago Plan: This is a pleasant 58 years old female who presents with acute kidney injury and positive blood in the stool suspicious for GI bleed with elevated liver enzymes. Continue with Protonix, and GI consult. Continue with IV fluid and nephrology consult. With the patient on CIWA protocol and vitamins. Follow-up surgical consult . Pain management, start antibiotics with Flagyl and ceftriaxone Labs and medication were reviewed.. Continue same treatment. Continue with symptomatic treatment. Resume home medication. Monitor lytes and vitals. DVT and GI prophylaxis. Further recommendations of the clinical course of the patient DVT prophylaxis: Restart subcu heparin GI Prophylaxis: PPI PT/OT: Pending Prognosis is guarded
[2019-03-19 08:02] LABS: Basophils % (A) 0 %; Eosinophils # (A) 0.3 k/uL (0-0.7); Eosinophils % (A) 5 %; HGB 11.8 gm/dL (11.4-16.0); Lymphocytes # (A) 1.1 k/uL (1.0-4.8); Lymphocytes % (A) 20 %; MCH 38.8 pg (25.0-35.0); MCHC 33.7 g/dL (31.0-37.0); MCV 115.1 fL (80.0-100.0); Macrocytosis Marked; Mean Platelet Volume 7.7; Monocytes # (A) 0.4 k/uL (0-1.0); Monocytes % (A) 7 %; Neutrophils # (A) 3.6 k/uL (1.3-7.7); Neutrophils % (A) 66 %; Platelet Count 134 k/uL (150-450); RBC 3.04 m/uL (3.80-5.40); RDW 14.8 % (11.5-15.5); WBC 5.5 k/uL (3.8-10.6)
[2019-03-19 08:20] LABS: Albumin 2.5 g/dL (3.5-5.0); Bilirubin, Delta 0.9 mg/dL (0.0-0.2); Bilirubin,Unconjugated 0.4 mg/dL (0.0-1.1); Calcium 7.4 mg/dL (8.4-10.2); Potassium 3.3 mmol/L (3.5-5.1); Total Bilirubin 1.3 mg/dL (0.2-1.3); Total Protein 5.8 g/dL (6.3-8.2)
[2019-03-19] MEDS: NICOTINE 21MG/24HR PATCH TRANSDERM SCH (08:37)
[2019-03-19] MEDS: GABAPENTIN 100 MG CAP PO SCH ×2 (08:37→20:43)
[2019-03-19] MEDS: ONDANSETRON 4 MG/2 ML VIAL IVP PRN ×2 (08:38→19:23)
[2019-03-19] MEDS: PANTOPRAZOLE 40 MG/10 ML VIAL IVP SCH (08:38)
[2019-03-19] MEDS: THIAMINE 100 MG TAB PO SCH ×2 (08:38→17:01)
[2019-03-19] MEDS: HYDROCORTISONE SUPPOSITORY 25 MG SUPP RECTAL SCH (08:38)
[2019-03-19] MEDS: FLUoxetine HCL 20 MG CAP PO SCH (08:38)
[2019-03-19] MEDS: HEPARIN SODIUM,PORCINE 5,000 UNIT/ML 1 ML VIAL SQ SCH ×2 (08:38→20:44)
[2019-03-19] MEDS: metroNIDAZOLE-NS PMX 500 MG in SALINE 1 100ML.BAG IVPB SCH ×2 (08:39→16:19)
[2019-03-19] MEDS: LIDOCAINE 2% GEL 30 ML TUBE TOPICAL SCH ×2 (08:39→20:44)
[2019-03-19] MEDS ORDERED: POTASSIUM CHLORIDE ER 20 MEQ TAB.ER PO STA (09:42)
[2019-03-19] MEDS: SODIUM CHLORIDE 0.9% 1,000 ML IV SCH (12:12)
--- NOTE | 2019-03-19 14:29 | CDI ---
Documentation Clarification Form Date: 03/19/2019 02:12:25 PM From: Mayra Lee RN CCDS Admit Date: 03/16/2019 01:56:00 PM Patient Name: Kyra Foreman Visit Number: [id number] Discharge Date: ATTENTION: The Clinical Documentation Specialists (CDI) and [facility] Coding Staff appreciate your assistance in clarifying documentation. Please respond to the clarification below the line at the bottom and electronically sign. The CDI & [facility] Coding staff will review the response and follow-up if needed. Please note: Queries are made part of the Legal Health Record. If you have any questions, please contact the author of this message via ITS. Dr. Liam Koo Colitis is documented in your consult 03/17/2019 and in following progress notes Patient history/risk factors: 58-year-old female presents to the ED with rectal bleeding for six months. Medical history COPD, DM, GERD, HLD, HTN, Clinical Indicators: Radiology: 03/17/19 CT abd/pelv findings are felt to reflect focal nonspecific colitis of the mid descending colon. Labs: Labs Rbc 3.51; Cr 2.99; Mag 1.4 total bili 1.4; AST 656; alt 209; Alk phos 156; FOB positive; Hep C IgG Ab reactive Colonoscopy results: 03/2017 DIVERTICULOSIS AND POLYPS Other Clinical Indicators: Treatment: Medication:03/18/2019- Flagyl ivpb Q8Hr ivpb; [place] ivpb Q day; 0.9ns 50cchr In your professional opinion, can you please further specify the following, if known? * Infectious (please specify) * Drug induced * Ulcerative colitis * Other, please specify * Unable to determine (Last Revision: December 2016) UNABLE TO DETERMINE MTDD
[2019-03-19] MEDS ORDERED: MAGNESIUM SULFATE-D5W PMX 1 GM in DEXTROSE/WATER 1 100ML.BAG IVPB SCH (16:00)
--- NOTE | 2019-03-19 16:06 | PN ---
PROGRESS NOTE The patient is seen for followup for acute kidney injury, which appears to be prerenal. Renal function has improved significantly, creatinine down to 0.9 from 2.9 on initial admission. PHYSICAL EXAMINATION: On examination, blood pressure is 125/78, heart rate of 60 per minute, patient is afebrile. EXAMINATION OF THE HEART: S1 and S2. EXAMINATION OF THE LUNGS: Decreased breath sounds at the bases. ABDOMEN: Soft, nontender. Examination of the lower extremities shows no significant edema. CATTLE SPRAYER exam grossly intact. LABS: Sodium 135, potassium 3.3, chloride 105, BUN 4, creatinine 0.9. Hemoglobin 11.8 g/dL. ASSESSMENT: 1. Acute kidney injury, prerenal, currently resolved. 2. Abdominal pain, possibly related to underlying colitis. 3. Hepatitis C, being followed by GI. 4. Asthma/chronic obstructive pulmonary disease exacerbation, currently improved. PLAN: Decrease IV fluids. Encourage increased oral intake. Repeat labs in a.m. The patient is clear for discharge from Nephrology standpoint. MMODL / IJN: [id number] /
[2019-03-19] MEDS: MAGNESIUM SULFATE-D5W PMX 1 GM in DEXTROSE/WATER 1 100ML.BAG IVPB SCH ×3 (17:46→20:44)
[2019-03-19] MEDS: ATORVASTATIN 80 MG TAB PO SCH (20:44)
[2019-03-19] MEDS ORDERED: Potassium Replacement Protocol 1 EACH MISC MISCELLANE PRN (22:06)
[2019-03-19] MEDS ORDERED: MAGNESIUM SULFATE-D5W PMX 1 GM in DEXTROSE/WATER 1 100ML.BAG IVPB ONE (22:08)
--- NOTE | 2019-03-19 22:43 | P.PN ---
Subjective Progress Note Date: 03/19/19 Principal diagnosis: Alcoholic hepatitis, hepatitis C, blood per rectum Patient is seen lying in bed. Tolerating advance diet. No bowel movements today. No nausea or vomiting. Objective - Vital Signs Vital signs: Vital Signs Temp 97.5 F L 03/19/19 21:00 Pulse 103 H 03/19/19 21:00 Resp 20 03/19/19 21:00 BP 171/111 03/19/19 21:00 Pulse Ox 97 03/19/19 21:00 Intake & Output 03/19/19 03/19/19 03/20/19 06:59 18:59 06:59 Intake Total 1180 1610 590 Output Total 0 Balance 1180 1610 590 Intake: Intake, IV Titration 750 Amount Sodium Chloride 0.9% 1, 600 000 ml @ 50 mls/hr IV . Q20H [place] Rx#:[id number] cefTRIAXone 1 gm In 50 Sodium Chloride 0.9% 50 ml @ 100 mls/hr IVPB Q24HR [place] Rx#:[id number] metroNIDAZOLE-NS PMX 500 100 mg In Saline 1 100ml.bag @ 100 mls/hr IVPB Q8HR [place] Rx#:[id number] Oral 1180 860 590 Output: Post Void Residual 0 Other: Voiding Method Toilet Toilet # Voids 3 4 1 - Exam On physical examination, patient appears comfortable in no apparent distress. HEAD: Normocephalic, atraumatic. EYES: No scleral icterus. No conjunctival injection. MOUTH: No lesions, tongue midline. NECK: Trachea midline, no gross abnormalities. ABDOMEN: Soft, obese, mildly tender to palpation. Bowel sounds are positive. No organomegaly. No guarding or rigidity. EXTREMITIES: No pedal edema. SKIN: No rashes, no jaundice. NEUROLOGIC: Alert and oriented x3. No focal deficits. - Labs CBC & Chem 7: 03/19/19 07:30 03/19/19 07:30 Labs: Abnormal Lab Results - Last 24 Hours (Table) 03/19/19 03/19/19 Range/Units 07:30 07:30 RBC 3.04 L (3.80-5.40) m/uL MCV 115.1 H (80.0-100.0) fL MCH 38.8 H (25.0-35.0) pg Plt Count 134 L (150-450) k/uL Macrocytosis Marked A Sodium 135 L (137-145) mmol/L Potassium 3.3 L (3.5-5.1) mmol/L BUN 4 L (7-17) mg/dL Calcium 7.4 L (8.4-10.2) mg/dL Magnesium 1.0 L (1.6-2.3) mg/dL Delta Bilirubin 0.9 H (0.0-0.2) mg/dL AST 344 H (14-36) U/L ALT 155 H (4-34) U/L Alkaline Phosphatase 130 H (38-126) U/L Total Protein 5.8 L (6.3-8.2) g/dL Albumin 2.5 L (3.5-5.0) g/dL Assessment and Plan (1) Alcoholic hepatitis Narrative/Plan: 58-year-old female with multiple medical comorbidities including diverticulosis and colon polyps noted on prior colonoscopy in 03/2017 who presented due to complaints of weakness and blood per rectum, at which time she was found to be intoxicated. The patient has been drinking 3-4 drinks daily for months for her reports and was found to be intoxicated as mentioned with liver enzymes suggestive of acute alcoholic hepatitis with bilirubin 2.6, alkaline phosphatase 127, AST 566 and ALT 187. Patient also found to have antibodies to hepatitis C. She complains of intermittent blood per rectum and chronic diarrhea with no findings to explain diarrhea on previous colonoscopy. She did have finding on CT of the abdomen of hepatic steatosis with some colitis noted in the mid descending colon OF UNKNOWN ETIOLOGY. Current Visit: Yes Status: Acute Code(s): K70.10 - ALCOHOLIC HEPATITIS WITHOUT ASCITES SNOMED Code(s): 647451175 (2) Hemorrhoid Current Visit: Yes Status: Acute Code(s): K64.9 - UNSPECIFIED HEMORRHOIDS SNOMED Code(s): 33907929 (3) Transaminitis Current Visit: Yes Status: Acute Code(s): R74.0 - NONSPEC ELEV OF LEVELS OF TRANSAMNS & LACTIC ACID DEHYDRGNSE SNOMED Code(s): 776228566 Plan: Supportive care Okay for diet as tolerated Continue to monitor for signs or symptoms of alcohol withdrawal Alcohol abstinence Continue to monitor hemoglobin and hematocrit and transfuse as needed Local hemorrhoidal treatment as needed, surgical service following Hepatitis C laboratory evaluation ordered with genotype and viral load pending, if positive the patient will need follow-up after discharge for evaluation of possible treatment Elevated iron levels likely secondary to underlying hepatitis C and alcoholic hepatitis, however patient have further evaluation with hemochromatosis workup after discharge Continue other medical treatment No plans for endoscopic evaluation at this time Thank you for allowing us to participate in the care of the patient, the GI service will stand by, please call us back with any questions or concerns
[2019-03-20] MEDS: metroNIDAZOLE-NS PMX 500 MG in SALINE 1 100ML.BAG IVPB SCH ×2 (01:03→07:20)
[2019-03-20] MEDS: SODIUM CHLORIDE 0.9% 1,000 ML IV SCH (01:11)
[2019-03-20] MEDS: HYDROcodone/APAP 10-325MG 1 EACH TAB PO PRN ×2 (03:50→10:41)
[2019-03-20 05:26] VITALS: RESP 16
[2019-03-20] MEDS: FLUoxetine HCL 20 MG CAP PO SCH (07:19)
[2019-03-20] MEDS: HEPARIN SODIUM,PORCINE 5,000 UNIT/ML 1 ML VIAL SQ SCH (07:19)
[2019-03-20] MEDS: NICOTINE 21MG/24HR PATCH TRANSDERM SCH (07:19)
[2019-03-20] MEDS: HYDROCORTISONE SUPPOSITORY 25 MG SUPP RECTAL SCH ×2 (07:19→07:39)
[2019-03-20] MEDS: GABAPENTIN 100 MG CAP PO SCH (07:19)
[2019-03-20] MEDS: PANTOPRAZOLE 40 MG/10 ML VIAL IVP SCH (07:19)
[2019-03-20] MEDS: THIAMINE 100 MG TAB PO SCH (07:19)
[2019-03-20] MEDS: LIDOCAINE 2% GEL 30 ML TUBE TOPICAL SCH (07:20)
[2019-03-20] MEDS: ONDANSETRON 4 MG/2 ML VIAL IVP PRN (07:24)
[2019-03-20 07:59] LABS: Calcium 7.1 mg/dL (8.4-10.2); Magnesium 1.7 mg/dL (1.6-2.3); Potassium 3.8 mmol/L (3.5-5.1)
[2019-03-20] MEDS: chlordiazePOXIDE 25 MG CAP PO SCH ×3 (10:41→12:29)
[2019-03-20 12:03] VITALS: BP 147/91; PULSE 84; TEMP 98.2
--- NOTE | 2019-03-20 12:29 | PN ---
PROGRESS NOTE Patient is seen for followup for acute kidney injury. Her renal function has improved significantly with creatinine down to 0.9 mg/dL. Patient has been maintained on IV fluids. She is doing well. PHYSICAL EXAMINATION: On examination, blood pressure was 149/92, heart rate 95 per minute. She is afebrile. EXAMINATION OF THE HEART: S1, S2. EXAMINATION OF THE LUNGS: Bilateral breath sounds are heard. Decreased breath sounds at bases. Abdomen is soft, nontender. Examination lower extremities shows no significant edema. CHORAL DIRECTOR EXAM: Grossly intact. LABS: Labs show sodium 134, potassium 3.8, BUN 4, creatinine 0.9. ASSESSMENT: 1. Acute kidney injury prerenal currently improved. 2. Hepatitis C, being followed by GI. 3. Alcoholic hepatitis. 4. Volume depletion now improved. PLAN: Continue to encourage increased oral intake. May discontinue IV fluids if patient is tolerating her oral intake well. MMODL / IJN: [id number] /
--- NOTE | 2019-03-20 12:59 | P.DS ---
Providers Date of admission: 03/16/19 13:56 Attending physician: Roger Gant Consults: 03/16/19 14:00 Consult Physician Routine Consulting Provider: Liam Koo Consult Reason/Comments: Hemorrhoid, gi bleed Do you want consulting provider notified?: Yes Consult Physician Routine Consulting Provider: Lily Cruz Consult Reason/Comments: ARF Do you want consulting provider notified?: Yes 03/17/19 07:01 Consult Physician Urgent Consulting Provider: Isidro Gatica Consult Reason/Comments: abd pain Do you want consulting provider notified?: Yes Primary care physician: [facility] Course: Diagnoses: acute descending colitis, improved significantly Elevated liver enzymes, mostly related to alcoholic hepatitis, and hepatitis C, with hepatomegaly Diagnosis of hepatitis C, patient is aware with her new diagnosis Acute kidney injury , mostly prerenal related to her diarrhea, bleeding, decrease intake and appetite. Improving and back to normal alcohol abuse and dependence alcohol withdrawal Positive occult blood in stool, mostly related to hemorrhoids Elevated iron levels likely due to underlying hepatitis C and alcoholic hepatitis, patient will need further evaluation with hemochromatosis workup after discharge Hypomagnesemia and hypokalemia, replaced Nicotine dependence Chronic diarrhea Asthma/COPD Diabetes mellitus Gastroesophageal reflux disease Hypertension Hyperlipidemia Seizure disorder since infancy Migraine Chronic bronchitis Rectal bleeding about 6-7 months ago Hospital course: This is a pleasant 58 years old female with past medical history of asthma/COPD, diabetes mellitus, gastroesophageal reflux disease, hypertension, hyperlipidemia, seizure disorder, migraines, epilepsy since entrance, chronic bronchitis, rectal bleeding for the past 6 or 7 months. Patient presents because she feels generally weak with lightheadedness and dizziness for the last few days. Some of blood per rectum especially each time she wipes. Patient had left lower quadrant abdominal pain and found to have acute colitis and the computed tomography scan of the abdomen and pelvis. Patient has been evaluated by GI and surgery team. Patient is found to have hemorrhoids causing her blood per rectum, she responded to therapy with topical steroids. She was treated with Rocephin and Flagyl for her colitis, her symptoms significantly improved including less abdominal pain and tenderness. She is tolerating bowel movement and her bowel movement becomes more regular every day. Her acute kidney injury came back to normal. Also she is been treated for CI [place] protocol for alcohol withdrawal, patient is wishing to quit, her she was score on the day of discharge was 2-4, without need for Ativan. Patient will be discharged on tapered dose of Librium (smaller dose), as well as Neurontin. Patient request which was helping her. Patient feels ready to be discharged today as she is back close to normal. On the day of discharge she denies other symptoms, she denies chest pain or dyspnea or fever. Patient was cleared for discharge by surgery and GI team. Patient is aware that she has alcoholic hepatitis and hep C infection, she knows that her hep C viral load test is pending and that she needs to follow-up with GI upon discharge and she agrees. Problems and management plan were discussed with the patient and he verbalized understanding and acceptance Patient was found stable and can be discharged home however he needs follow-up as an outpatient. Patient was instructed to follow up with PCP within one week and patient agrees. Patient also was instructed to follow up with GI in 1-2 weeks. pt agrees with the appointments made for her for GI and PCP and their timing and said she will follow up. Gen: patient is a AAOx3, no distress CVS: S1-S2, RRR, no murmur Lungs: B/L CTA, no wheezing -Abdomen: soft, no distention, mild LLQ tenderness with no rebound tenderness or guarding, positive bowel sounds Extremity: no leg edema or induration Time spent more than 35 minutes Patient Condition at Discharge: Fair Plan - Discharge Summary Discharge Rx Participant: No New Discharge Prescriptions: New Hydrocortisone Suppository [Anusol-Hc] 25 mg RECTAL 2100 5 Days #5 supp Cefuroxime Axetil [Ceftin] 500 mg PO BID 7 Days #14 tab metroNIDAZOLE [Flagyl] 500 mg PO Q8HR 7 Days #21 tab Nicotine 21Mg/24Hr Patch [Habitrol] 1 patch TRANSDERM DAILY #30 patch chlordiazePOXIDE HCl [Librium] 20 mg PO TID 3 Days #6 capsule Gabapentin [Neurontin] 100 mg PO BID 7 Days #14 cap Thiamine [Vitamin B-1] 100 mg PO BID-W/MEALS #30 tab Ondansetron HCl [Zofran] 4 mg PO Q8H PRN #6 tab PRN Reason: Nausea And Vomiting Magnesium Oxide [Mag-Ox] 400 mg PO DAILY #5 tablet Continue Hydrocodone/Acetaminophen [[place] 10-325] 1 tab PO QID Ranitidine HCl [Zantac] 300 mg PO BID FLUoxetine HCL [PROzac] 20 mg PO DAILY Atorvastatin [Lipitor] 80 mg PO HS Albuterol Inhaler [Ventolin Hfa Inhaler] 2 puff INHALATION Q6HR PRN PRN Reason: Shortness Of Breath Lisinopril [Zestril] 20 mg PO DAILY Ibuprofen [Motrin] 800 mg PO TID PRN PRN Reason: Pain Discharge Medication List Albuterol Inhaler [Ventolin Hfa Inhaler] 2 puff INHALATION Q6HR PRN 03/25/17 [History] Atorvastatin [Lipitor] 80 mg PO HS 03/25/17 [History] FLUoxetine HCL [PROzac] 20 mg PO DAILY 03/25/17 [History] Hydrocodone/Acetaminophen [[place] 10-325] 1 tab PO QID 03/25/17 [History] Ranitidine HCl [Zantac] 300 mg PO BID 03/25/17 [History] Ibuprofen [Motrin] 800 mg PO TID PRN 03/16/19 [History] Lisinopril [Zestril] 20 mg PO DAILY 03/16/19 [History] Cefuroxime Axetil [Ceftin] 500 mg PO BID 7 Days #14 tab 03/20/19 [Rx] Gabapentin [Neurontin] 100 mg PO BID 7 Days #14 cap 03/20/19 [Rx] Hydrocortisone Suppository [Anusol-Hc] 25 mg RECTAL 2100 5 Days #5 supp 03/20/19 [Rx] Magnesium Oxide [Mag-Ox] 400 mg PO DAILY #5 tablet 03/20/19 [Rx] Nicotine 21Mg/24Hr Patch [Habitrol] 1 patch TRANSDERM DAILY #30 patch 03/20/19 [Rx] Ondansetron HCl [Zofran] 4 mg PO Q8H PRN #6 tab 03/20/19 [Rx] Thiamine [Vitamin B-1] 100 mg PO BID-W/MEALS #30 tab 03/20/19 [Rx] chlordiazePOXIDE HCl [Librium] 20 mg PO TID 3 Days #6 capsule 03/20/19 [Rx] metroNIDAZOLE [Flagyl] 500 mg PO Q8HR 7 Days #21 tab 03/20/19 [Rx] Follow up Appointment(s)/Referral(s): Tay,Leyla A, NPC [Nurse Practitioner] - 04/10/19 11:00 am (Bioinformatics Specialist. For your alcoholic hepatitis and hep C infection. -Please follow-up hep C viral load -will need further evaluation with hemochromatosis workup Please bring Photo ID and insurance card(s)) Yfn Tao DO [Primary Care Provider] - 03/24/19 10:20 am Patient Instructions/Handouts: Cirrhosis (DC), Cirrhosis (IP), Liver Fibrosis (GEN) Activity/Diet/Wound Care/Special Instructions: Regular diet Activity is limited till you see your doctor Discharge Disposition: HOME WITH HOME HEALTH SERVICES
[2019-03-20 15:26] LABS: HCV Qualitative Result DETECTED (Not detected); HCV Quant Log 6.44 (<1.08)
[2019-03-20] MEDS ORDERED: HYDROCORTISONE SUPPOSITORY 25 MG SUPP RECTAL SCH (21:00)
[2019-03-21] MEDS ORDERED: PANTOPRAZOLE 40 MG TABLET PO SCH (07:30)
== END 2019-03-20 13:52 | disposition home or self-care (01) | DRG 683 ==
LOC: EC 12:15 → 5NMEDONC 13:56
PROVIDERS: ADMIT Internal Medicine; ATTEND Internal Medicine
DX: N17.9 Acute kidney failure, unspecified (principal); E87.2 Acidosis; K51.50 Left sided colitis without complications; F10.230 Alcohol dependence with withdrawal, uncomplicated; J44.1 Chronic obstructive pulmonary disease with (acute) exacerbation; K70.10 Alcoholic hepatitis without ascites; K76.0 Fatty (change of) liver, not elsewhere classified; F17.210 Nicotine dependence, cigarettes, uncomplicated; E83.42 Hypomagnesemia; K21.9 Gastro-esophageal reflux disease without esophagitis; I10 Essential (primary) hypertension; E78.5 Hyperlipidemia, unspecified; G40.909 Epilepsy, unspecified, not intractable, without status epilepticus; G43.909 Migraine, unspecified, not intractable, without status migrainosus; F41.9 Anxiety disorder, unspecified; F32.9 Major depressive disorder, single episode, unspecified; B19.20 Unspecified viral hepatitis C without hepatic coma; M19.90 Unspecified osteoarthritis, unspecified site; F10.220 Alcohol dependence with intoxication, uncomplicated; K64.9 Unspecified hemorrhoids; E87.6 Hypokalemia; E86.9 Volume depletion, unspecified; K57.90 Diverticulosis of intestine, part unspecified, without perforation or abscess without bleeding; R19.5 Other fecal abnormalities; Y90.6 Blood alcohol level of 120-199 mg/100 ml; Z79.899 Other long term (current) drug therapy; Z87.01 Personal history of pneumonia (recurrent); Z98.890 Other specified postprocedural states; Z90.79 Acquired absence of other genital organ(s); Z90.721 Acquired absence of ovaries, unilateral; Z87.2 Personal history of diseases of the skin and subcutaneous tissue; Z86.010 Personal history of colon polyps; Z88.6 Allergy status to analgesic agent; Z88.5 Allergy status to narcotic agent; Z80.9 Family history of malignant neoplasm, unspecified
CPT/HCPCS: 36415; 74176; 76770; 80048; 80053; 80074; 80076; 80320; 81001; 82272; 82607; 82728; 82746; 83540; 83550; 83735; 85025; 85610; 85730; 86850; 86900; 86901; 87522; 87902; 96361; 96365; 96366; 96367; 96372; 96375; 99284

== ENCOUNTER → 2019-11-05 | Outpatient (CLI) | payer OTHER ==
--- NOTE | 2019-11-05 15:52 | XR ---
EXAMINATION TYPE: XR chest 2V DATE OF EXAM: 11/05/2019 COMPARISON: Prior chest x-ray 01/09/2018 HISTORY: Asthma and chest pain, dyspnea TECHNIQUE: Frontal and lateral views of the chest are obtained. FINDINGS: There is no focal air space opacity, pleural effusion, or pneumothorax seen. The cardiac silhouette size is within normal limits. There are prominent lung volumes with flattening the hemidi aphragms, increased retrosternal airspace consistent with underlying COPD. The aorta is dense as on p rior exam. The osseous structures are intact. IMPRESSION: No acute cardiopulmonary process.
== END | disposition home or self-care (01) ==
LOC: RADXRYALE 14:28
PROVIDERS: ATTEND Physician Assistant Medical
DX: J45.40 Moderate persistent asthma, uncomplicated (principal); R07.1 Chest pain on breathing
CPT/HCPCS: 71046

== ENCOUNTER → 2019-11-12 | Outpatient (CLI) | payer OTHER ==
--- NOTE | 2019-11-12 11:14 | MR ---
EXAMINATION TYPE: MR lumbar spine wo con DATE OF EXAM: 11/12/2019 COMPARISON: 08/29/2015 HISTORY: Back pain, disc degeneration, lumbar, spondylosis TECHNIQUE: T1 and T2 axial and sagittal images of the lumbar spine are submitted. FINDINGS: There is no abnormal signal seen within the visualized spinal cord or paraspinal soft tissu es. At L1-2 there is no disc herniation or canal stenosis. No foraminal encroachment. Mild hypertrophic c hange of the facets. At L2-3 there is no disc herniation or canal stenosis. No foraminal encroachment. At L3-4 there is no disc herniation or canal stenosis. There is mild circumferential disc bulging and hypertrophic change of the facets similar in appearance to the prior exam with mild flattening of th e thecal sac but no canal stenosis or focal herniation. At L4-5 there is there is facet arthropathy and broad-based central disc bulging with mild effacement of thecal sac similar in appearance to the prior exam. Very mild bilateral foraminal encroachment. At L5-S1 there is degenerative disc disease with discogenic marrow changes and facet arthropathy. Shalonda tral disc protrusion stable compared to the prior exam. Mild bilateral foraminal encroachment. IMPRESSION: 1. Stable severe degenerative disc disease and central disc protrusion L5-S1 with mild effacement of thecal sac and mild bilateral foraminal encroachment. 2. Stable multilevel hypertrophic change of the facets. Mild disc bulging at L3-4 and L4-5 with mild effacement of thecal sac is retrospectively stable. There is mild bilateral foraminal encroachment at L4-L5.
== END | disposition home or self-care (01) ==
LOC: RADMRIMAIN 10:28
PROVIDERS: ATTEND Physical Medicine & Rehabilitation
DX: M51.26 Other intervertebral disc displacement, lumbar region (principal); M51.27 Other intervertebral disc displacement, lumbosacral region; M51.37 Other intervertebral disc degeneration, lumbosacral region; M47.816 Spondylosis without myelopathy or radiculopathy, lumbar region; I10 Essential (primary) hypertension; E78.5 Hyperlipidemia, unspecified; J44.9 Chronic obstructive pulmonary disease, unspecified; E11.9 Type 2 diabetes mellitus without complications
CPT/HCPCS: 72148

== ENCOUNTER → 2020-04-27 | Outpatient (CLI) | payer OTHER ==
--- NOTE | 2020-04-27 16:29 | XR ---
EXAMINATION TYPE: XR chest 2V DATE OF EXAM: 04/27/2020 COMPARISON: 11/05/2019 TECHNIQUE: PA and lateral views submitted. HISTORY: Shortness of breath FINDINGS: The lungs are clear and there is no pneumothorax, pleural effusion, or focal pneumonia. Diffuse hyp erinflation. There are subsegmental changes at both lung bases with small effusion. Heart size stable . Correlate for COPD. Degenerative changes of the spine. IMPRESSION: 1. COPD with basilar infiltrate and small effusion.
== END | disposition home or self-care (01) ==
LOC: RADXRYALE 16:08
PROVIDERS: ATTEND Physician Assistant Medical
DX: J44.9 Chronic obstructive pulmonary disease, unspecified (principal); J90 Pleural effusion, not elsewhere classified; R91.8 Other nonspecific abnormal finding of lung field
CPT/HCPCS: 71046

== ENCOUNTER 2020-04-28 13:09 | Observation (INO) | payer OTHER ==
--- NOTE | 2020-04-28 13:28 | ED ---
General Adult HPI - General Chief complaint: Shortness of Breath Stated complaint: lab recheck- sent by pcp Time Seen by Provider: 04/28/20 13:15 Source: patient Mode of arrival: wheelchair Limitations: no limitations - History of Present Illness Initial comments: Dictation was produced using [employer] dictation software. please excuse any grammatical, word or spelling errors. This patient was cared for during a federal and state declared state of emergency secondary to Covid 19 Chief Complaint: 59-year-old female past medical history asthma, COPD, hypertension and dyslipidemia presents to the emergency department for abnormal outpatient labs. History of Present Illness: 59-year-old female she was sent her by primary care physician. Patient has been struggling with dyspnea for the last 4-5 days. She was tested for Covid she is found to be negative she had further lab studies performed. She had elevated d-dimer found to be elevated at 0.77. Furthermore she had a elevated brain natruretic peptide found to be 1390. General x-ray yesterday showed COPD with basilar infiltrate and small effusion. Patient over the last 48 hours she's been having worsening swelling in his bilateral lower extremities. Symptoms are slightly worse with lying flat. Denies any chest pain. States that her symptoms are worse with exertion. The ROS documented in this emergency department record has been reviewed and confirmed by me. Those systems with pertinent positive or negative responses have been documented in the HPI. All other systems are other negative and/or noncontributory. PHYSICAL EXAM: General Impression: Alert and oriented x3, not in acute distress HEENT: Normocephalic atraumatic, extra-ocular movements intact, pupils equal and reactive to light bilaterally, mucous membranes moist. Cardiovascular: Heart regular rate and rhythm Chest: Able to complete full sentences, no retractions, no tachypnea Abdomen: abdomen soft, non-tender, non-distended, no organomegaly Musculoskeletal: Pulses present and equal in all extremities, no peripheral edema Motor: no focal deficits noted Neurological: CN II-XII grossly intact, no focal motor or sensory deficits noted Skin: Intact with no visualized rashes Psych: Normal affect and mood ED course: 59-year-old female in 4-5 days of dyspnea presents with elevated d- dimer and brain natruretic peptide ordered by primary care physician. Vital Signs upon arrival are within acceptable limits. CT angios the chest was obtained showing no CT evidence for acute pulmonary embo lism. There is COPD. There is also concern of a acute infiltrate in the right lung. Laboratory evaluation obtained. Mild leukocytosis of 10.8. There is macrocytosis. Ther coag panel is negative. Metabolic panel is negative. There is no evidence of heart failure on patient CT angioma. She does however have elevated brain natruretic peptide. We'll keep patient and admitted to observation for cardiology consultation for suspicion of new-onset heart failure. Patient ordered for Lasix. EKG interpretation: Ventricular rate 75, sinus rhythm, QRS 62, QTc 563. No NM prolongation, no QTC prolongation, no ST or T-wave changes noted. I disagree with computer interpretation of undetermined rhythm with a ventricular rate of 173.. EKG appears to be normal. - Related Data Home Medications Medication Instructions Recorded Confirmed Albuterol Inhaler (Mhu) [Ventolin 2 puff INHALATION Q6HR PRN 03/25/17 03/16/19 Hfa Inhaler (Mhu)] Atorvastatin [Lipitor] 80 mg PO HS 03/25/17 03/16/19 FLUoxetine HCL [PROzac] 20 mg PO DAILY 03/25/17 03/16/19 Hydrocodone/Acetaminophen [[place] 1 tab PO QID 03/25/17 03/16/19 10-325] Ranitidine HCl [Zantac] 300 mg PO BID 03/25/17 03/16/19 Ibuprofen [Motrin] 800 mg PO TID PRN 03/16/19 03/16/19 lisinopriL [Zestril] 20 mg PO DAILY 03/16/19 03/16/19 Previous Rx's Medication Instructions Recorded Cefuroxime Axetil [Ceftin] 500 mg PO BID 7 Days #14 tab 03/20/19 Gabapentin [Neurontin] 100 mg PO BID 7 Days #14 cap 03/20/19 Hydrocortisone Suppository 25 mg RECTAL 2100 5 Days #5 supp 03/20/19 [Anusol-Hc] Magnesium Oxide [Mag-Ox] 400 mg PO DAILY #5 tablet 03/20/19 Nicotine 21Mg/24Hr Patch [Habitrol] 1 patch TRANSDERM DAILY #30 patch 03/20/19 Ondansetron HCl [Zofran] 4 mg PO Q8H PRN #6 tab 03/20/19 Thiamine [Vitamin B-1] 100 mg PO BID-W/MEALS #30 tab 03/20/19 chlordiazePOXIDE HCl [Librium] 20 mg PO TID 3 Days #6 capsule 03/20/19 metroNIDAZOLE [Flagyl] 500 mg PO Q8HR 7 Days #21 tab 03/20/19 Allergies Allergy/AdvReac Type Severity Reaction Status Date / Time naproxen [From Naprosyn] Allergy Mild Nausea & Verified 04/28/20 13:14 Vomiting propoxyphene Allergy Nausea & Verified 04/28/20 13:14 [From Darvocet-N] Vomiting Review of Systems ROS Statement: Those systems with pertinent positive or pertinent negative responses have been documented in the HPI. ROS Other: All systems not noted in ROS Statement are negative. Past Medical History Past Medical History: Asthma, COPD, GERD/Reflux, Hyperlipidemia, Hypertension, Pneumonia, Seizure Disorder Additional Past Medical History / Comment(s): migraines, epilepsy dx as infant,, chronic bronchitis, upset stomach recently, rectal bleeding for past 6-7 months. diabetes for 2 years, recently take off meds r/t weight loss, dr said no longer diabetic History of Any Multi-Drug Resistant Organisms: None Reported Past Surgical History: Breast Surgery, Orthopedic Surgery Additional Past Surgical History / Comment(s): left fallopian tube removed and oophorectomy, cysts removed from tommy breasts, cyst removed from forehead, left knee arthroscopy x 2, tommy catact sx with lens placed Past Anesthesia/Blood Transfusion Reactions: No Reported Reaction Past Psychological History: Anxiety, Depression Smoking Status: Current every day smoker Past Alcohol Use History: Daily Past Drug Use History: None Reported - Past Family History Mother Family Medical History: Cancer Father Family Medical History: Cancer General Exam Limitations: no limitations Course Vital Signs 04/28/20 04/28/20 13:10 14:10 Temperature 98.2 F Pulse Rate 100 87 Respiratory 20 18 Rate Blood Pressure 141/88 141/88 O2 Sat by Pulse 100 97 Oximetry Medical Decision Making - Lab Data Result diagrams: 04/28/20 13:35 04/28/20 13:35 Lab Results 04/28/20 04/28/20 04/28/20 Range/Units 13:35 13:35 13:35 WBC 10.8 H (3.8-10.6) k/uL RBC 2.68 L (3.80-5.40) m/uL Hgb 10.1 L (11.4-16.0) gm/dL Hct 31.9 L (34.0-46.0) % MCV 119.1 H (80.0-100.0) fL MCH 37.8 H (25.0-35.0) pg MCHC 31.7 (31.0-37.0) g/dL RDW 15.9 H (11.5-15.5) % Plt Count 341 (150-450) k/uL MPV 7.3 Neutrophils % 71 % Lymphocytes % 17 % Monocytes % 6 % Eosinophils % 5 % Basophils % 1 % Neutrophils # 7.7 (1.3-7.7) k/uL Lymphocytes # 1.8 (1.0-4.8) k/uL Monocytes # 0.7 (0-1.0) k/uL Eosinophils # 0.5 (0-0.7) k/uL Basophils # 0.1 (0-0.2) k/uL Manual Slide Review Performed Macrocytosis Marked A PT 9.4 (9.0-12.0) sec INR 0.9 (<1.2) APTT 23.1 (22.0-30.0) sec Sodium 135 L (137-145) mmol/L Potassium 5.2 H (3.5-5.1) mmol/L Chloride 104 (98-107) mmol/L Carbon Dioxide 24 (22-30) mmol/L Anion Gap 7 mmol/L BUN 14 (7-17) mg/dL Creatinine 0.71 (0.52-1.04) mg/dL Est GFR (CKD-EPI)AfAm >90 (>60 ml/min/1.73 sqM) Est GFR (CKD-EPI)NonAf >90 (>60 ml/min/1.73 sqM) Glucose 91 (74-99) mg/dL Calcium 9.3 (8.4-10.2) mg/dL Disposition Clinical Impression: Dyspnea, Elevated brain natriuretic peptide (BNP) level Disposition: ADMITTED IP TO THIS HOSP Condition: Fair Referrals: Yfn Tao DO [Primary Care Provider] - 1-2 days Decision Time: 14:33
[2020-04-28 14:00] LABS: Basophils # (A) 0.1 k/uL (0-0.2); Basophils % (A) 1 %; Eosinophils # (A) 0.5 k/uL (0-0.7); Eosinophils % (A) 5 %; HCT 31.9 % (34.0-46.0); HGB 10.1 gm/dL (11.4-16.0); Lymphocytes # (A) 1.8 k/uL (1.0-4.8); Lymphocytes % (A) 17 %; MCH 37.8 pg (25.0-35.0); MCHC 31.7 g/dL (31.0-37.0); MCV 119.1 fL (80.0-100.0); Macrocytosis Marked; Mean Platelet Volume 7.3; Monocytes # (A) 0.7 k/uL (0-1.0); Monocytes % (A) 6 %; Neutrophils # (A) 7.7 k/uL (1.3-7.7); Neutrophils % (A) 71 %; Platelet Count 341 k/uL (150-450); RBC 2.68 m/uL (3.80-5.40); RDW 15.9 % (11.5-15.5); WBC 10.8 k/uL (3.8-10.6)
[2020-04-28 14:08] LABS: INR 0.9 (<1.2)
[2020-04-28 14:09] LABS: Partial Thromboplastin Time 23.1 sec (22.0-30.0); Prothrombin Time 9.4 sec (9.0-12.0)
--- NOTE | 2020-04-28 14:11 | CT ---
EXAMINATION TYPE: CT angio chest DATE OF EXAM: 04/28/2020 2:01 PM COMPARISON: Chest x-ray from yesterday HISTORY: elevated d-dimer CT DLP: 236 mGycm Automated exposure control for dose reduction was used. CONTRAST: CTA scan of the thorax is performed with IV Contrast, patient injected with 100 mL of Isovue 370, pul monary embolism protocol. MIP images are created and reviewed. FINDINGS: LUNGS: Mild to moderate underlying emphysematous change is present. Dependent atelectasis bilateral l ower lobes. Additional dependent atelectasis or limited infiltrate in the inferior lateral right uppe r lobe axial image 71 is noted. Mild linear scarring and/or atelectasis in both bases. Tiny right bas ilar pleural effusion. Slightly more prominent adjacent atelectasis and/or Limited consolidation. No suspicious nodules or masses. MEDIASTINUM: There is satisfactory enhancement of the pulmonary artery and its branches, there is no CT evidence for pulmonary embolism. There are prominent but subcentimeter bilateral hilar along with subcarinal and prevascular and AP window lymph nodes. No cardiomegaly or pericardial effusion is s een. Coronary artery calcification is present. Satisfactory enhancement of the aorta without aneurysm or dissection. OTHER: Small sized hiatal hernia. [id number] multilevel spurring in the thoracic spine. IMPRESSION: No CT evidence for acute pulmonary embolism. Mild to moderate emphysematous change with t iny right pleural effusion. Bilateral atelectatic change. Some limited acute infiltrate right lung ma y be present, correlate clinically.
[2020-04-28 14:12] LABS: African American GFR (CKD) >90 (>60 ml/min/1.73 sqM); Anion Gap 7 mmol/L; Blood Urea Nitrogen 14 mg/dL (7-17); Calcium 9.3 mg/dL (8.4-10.2); Carbon Dioxide 24 mmol/L (22-30); Chloride 104 mmol/L (98-107); Glucose 91 mg/dL (74-99); Non-African American GFR(CKD) >90 (>60 ml/min/1.73 sqM); Potassium 5.2 mmol/L (3.5-5.1); Sodium 135 mmol/L (137-145)
[2020-04-28] MEDS ORDERED: FUROSEMIDE 10 MG/ML 4 ML VIAL IV STA (14:34)
[2020-04-28] MEDS ORDERED: ALBUTEROL NEBULIZED 2.5 MG/3 ML INHALATION PRN (17:44)
[2020-04-28] MEDS: HYDROcodone/APAP 10-325MG 1 EACH TAB PO PRN (20:42)
[2020-04-28] MEDS: FUROSEMIDE 40 MG TAB PO SCH (20:43)
[2020-04-28] MEDS: FLUoxetine HCL 20 MG CAP PO SCH (20:43)
[2020-04-28] MEDS: IPRATROPIUM-ALBUTEROL 3 ML NEB INHALATION PRN (20:50)
[2020-04-28] MEDS ORDERED: ATORVASTATIN 80 MG TAB PO SCH (21:00)
[2020-04-29] MEDS: HYDROcodone/APAP 10-325MG 1 EACH TAB PO PRN ×2 (07:09→14:34)
[2020-04-29] MEDS ORDERED: THIAMINE 100 MG TAB PO SCH (07:30)
[2020-04-29] MEDS: IPRATROPIUM-ALBUTEROL 3 ML NEB INHALATION PRN ×3 (07:41→15:20)
[2020-04-29] MEDS ORDERED: SYMBICORT 160-4.5 MCG INHALER INHALATION SCH (08:00)
[2020-04-29 08:15] VITALS: RESP 18
[2020-04-29] MEDS: FLUoxetine HCL 20 MG CAP PO SCH (08:49)
[2020-04-29] MEDS: FUROSEMIDE 40 MG TAB PO SCH (08:49)
[2020-04-29] MEDS ORDERED: lisinopriL 20 MG TAB PO SCH (09:00)
[2020-04-29] MEDS ORDERED: CHOLECALCIFEROL 25 MCG (1000 IU) TABLET PO SCH (09:00)
[2020-04-29 12:43] VITALS: BMI 23.4
--- NOTE | 2020-04-29 13:01 | P.HPIM ---
History of Present Illness 59-year-old the female was admitted to rule out any congestive heart failure although patient denied any orthopnea proximal nocturnal dyspnea patient was having some shortness of breath does have history of COPD but not wheezing at t his time. Patient was recently treated for sore throat does have oral thrush at this time patient is comparing of fullness in the ears. Patient is complaining of for swelling in bilateral lower extremity swelling was started on Lasix clinically patient doesn't have any JVD doesn't have much of an elevated BNP patient is on room air. Patient will be discharged today. Echocardiac was ordered by cardiology and patient will be discharged after echo and after clearance from cardiology. Review of Systems REVIEW OF SYSTEMS: CONSTITUTIONAL: No fever, no malaise, no fatigue. HEENT: No recent visual problems or hearing problems. Denied any sore throat. CARDIOVASCULAR: No chest pain, orthopnea, PND, no palpitations, no syncope. PULMONARY: no cough, no hemoptysis. GASTROINTESTINAL: No diarrhea, no nausea, no vomiting, no abdominal pain. NEUROLOGICAL: No headaches, no weakness, no numbness. HEMATOLOGICAL: Denies any bleeding or petechiae. GENITOURINARY: Denies any burning micturition, frequency, or urgency. MUSCULOSKELETAL/RHEUMATOLOGICAL: Denies any joint pain, swelling, or any muscle pain. ENDOCRINE: Denies any polyuria or polydipsia. The rest of the 14-point review of systems is negative. Past Medical History Past Medical History: Asthma, COPD, GERD/Reflux, Hyperlipidemia, Hypertension, Liver Disease, Pneumonia, Seizure Disorder Additional Past Medical History / Comment(s): Chronic bronchitis, seizure disorder since infancy and pt states last seizure was 3.5 week ago, pt no longer on diabetic meds since wt loss, hepatitis C, ETOH abuse-pt has not drank for one month/past withdrawal, alcoholic hepatitis, chronic cervical and low back pain, diverticular disease per past medical record but pt does not recall, benign colon polyps. History of Any Multi-Drug Resistant Organisms: None Reported Past Surgical History: Breast Surgery, Orthopedic Surgery Additional Past Surgical History / Comment(s): left fallopian tube removed and oophorectomy d/t tubal /cysts, cysts removed from tommy breasts, cyst removed from forehead, left knee arthroscopy x 2, tommy catact sx with lens placed, colonoscopy/polypectomy, hemorrhoidectomy Past Anesthesia/Blood Transfusion Reactions: No Reported Reaction Smoking Status: Current every day smoker - Past Family History Mother Family Medical History: Cancer, COPD Additional Family Medical History / Comment(s): Mother had lung cancer. Father Family Medical History: Liver Disease Additional Family Medical History / Comment(s): Father had liver cirrhosis. He was an alcoholic. Medications and Allergies Home Medications Medication Instructions Recorded Confirmed Type Atorvastatin [Lipitor] 80 mg PO HS 03/25/17 04/28/20 History FLUoxetine HCL [PROzac] 20 mg PO BID 03/25/17 04/28/20 History Hydrocodone/Acetaminophen [[place] 1 tab PO QID PRN 03/25/17 04/28/20 History 10-325] Ibuprofen [Motrin] 800 mg PO TID PRN 03/16/19 04/28/20 History Thiamine [Vitamin B-1] 100 mg PO BID-W/MEALS #30 tab 03/20/19 04/28/20 Rx Albuterol Sulfate [Proair Hfa] 2 puff INHALATION RT-QID PRN 04/28/20 04/28/20 History Cholecalciferol [Vitamin D3 (25 50 mcg PO DAILY 04/28/20 04/28/20 History Mcg = 1000 Iu)] Fluticasone/Salmeterol [Advair 1 puff INHALATION RT-DAILY 04/28/20 04/28/20 History 500-50 Diskus] Ipratropium-Albuterol Nebulize 3 ml INHALATION RT-Q4H PRN 04/28/20 04/28/20 History [Duoneb 0.5 mg-3 mg/3 ml Soln] Lidocaine 2% Gel [Xylocaine Jelly 1 applic TOPICAL DAILY PRN 04/28/20 04/28/20 History 2%] Nystatin 100,000 Unit/ml Susp 5 ml PO QID #200 ml 04/29/20 Rx [Mycostatin Oral Susp] lisinopriL [Zestril] 10 mg PO DAILY #0 04/29/20 04/28/20 Rx Allergies Allergy/AdvReac Type Severity Reaction Status Date / Time naproxen [From Naprosyn] Allergy Mild Nausea & Verified 04/28/20 15:58 Vomiting propoxyphene Allergy Nausea & Verified 04/28/20 15:58 [From Darvocet-N] Vomiting cefuroxime AdvReac Abdominal Verified 04/28/20 15:58 Pain Physical Exam Vitals: Vital Signs Temp Pulse Pulse Resp BP BP Pulse Ox 04/29/20 11:38 80 04/29/20 11:26 76 04/29/20 07:59 84 04/29/20 07:41 84 04/29/20 07:00 98.7 F 87 18 122/76 97 04/29/20 01:04 98.6 F 81 16 128/81 97 04/28/20 20:59 76 18 04/28/20 20:52 75 18 04/28/20 20:00 98.4 F 89 18 119/81 98 04/28/20 15:00 98.0 F 86 85 18 135/93 138/90 99 04/28/20 14:30 87 18 141/88 98 04/28/20 14:10 87 18 141/88 97 04/28/20 13:10 98.2 F 100 20 141/88 100 Intake and Output 04/28/20 04/29/20 04/29/20 22:59 06:59 14:59 Intake Total 400 300 Balance 400 300 Intake: Oral 400 300 Other: Voiding Method Toilet # Voids 2 3 Weight 63.957 kg 63.957 kg PHYSICAL EXAMINATION: GENERAL: The patient is alert and oriented x3, not in any acute distress. Well developed, well nourished. HEENT: Pupils are round and equally reacting to light. EOMI. No scleral icterus. No conjunctival pallor. Normocephalic, atraumatic. No pharyngeal erythema. No thyromegaly. She does have oral thrush CARDIOVASCULAR: S1 and S2 present. No murmurs, rubs, or gallops. PULMONARY: Chest is clear to auscultation, no wheezing or crackles. ABDOMEN: Soft, nontender, nondistended, normoactive bowel sounds. No palpable organomegaly. MUSCULOSKELETAL: No joint swelling or deformity. EXTREMITIES: No cyanosis, clubbing, or pedal edema. NEUROLOGICAL: Gross neurological examination did not reveal any focal deficits. SKIN: No rashes. Results CBC & Chem 7: 04/28/20 13:35 04/28/20 13:35 Labs: Abnormal Lab Results - Last 24 Hours (Table) 04/28/20 04/28/20 Range/Units 13:35 13:35 WBC 10.8 H (3.8-10.6) k/uL RBC 2.68 L (3.80-5.40) m/uL Hgb 10.1 L (11.4-16.0) gm/dL Hct 31.9 L (34.0-46.0) % MCV 119.1 H (80.0-100.0) fL MCH 37.8 H (25.0-35.0) pg RDW 15.9 H (11.5-15.5) % Macrocytosis Marked A Sodium 135 L (137-145) mmol/L Potassium 5.2 H (3.5-5.1) mmol/L Thrombosis Risk Factor Assmnt - Choose All That Apply Any of the Below Risk Factors Present?: Yes Each Factor Represents 1 point: Abnormal pulmonary function (COPD), Age 41-60 years, Swollen legs (current) Other Risk Factors: No Other congenital or acquired thrombophilia - If yes, enter type in comment: No Thrombosis Risk Factor Assessment Total Risk Factor Score: 3 Thrombosis Risk Factor Assessment Level: Moderate Risk Assessment and Plan Plan: Shortness of breath etiology not clear patient may have an episode of COPD exace rbation which may have cleared up by the primary L evaluated the patient patient is not in heart failure exacerbation. Echocardiogram is pending after echo patient probably can be discharged. Rule out pulmonary embolism patient doesn't have any pneumonia. -Oral thrush patient will be discharged on nystatin swish and swallow -Hypokalemia secondary to MÓNICA inhibitor which will be cut down and patient patient will be a low potassium and low sodium diet. -Continued nicotine use: Counseling was provided -Gastroesophageal reflux disease -Hypertension -Hyperlipidemia -Seizure disorder -History of hepatitis C. -Depression
--- NOTE | 2020-04-29 13:01 | P.DS ---
Providers Date of admission: 04/28/20 14:53 Attending physician: Buddy Borges MD Consults: 04/28/20 14:33 Consult Physician Routine Consulting Provider: Kristen Cabrales Consult Reason/Comments: elevated bnp, heart failure? Do you want consulting provider notified?: Yes Primary care physician: [facility] Course: Refer to my history of present illness for further details Patient Condition at Discharge: Fair Plan - Discharge Summary Discharge Rx Participant: No New Discharge Prescriptions: New Nystatin 100,000 Unit/ml Susp [Mycostatin Oral Susp] 5 ml PO QID #200 ml Continue Hydrocodone/Acetaminophen [[place] 10-325] 1 tab PO QID PRN PRN Reason: Pain FLUoxetine HCL [PROzac] 20 mg PO BID Atorvastatin [Lipitor] 80 mg PO HS Ibuprofen [Motrin] 800 mg PO TID PRN PRN Reason: Pain Thiamine [Vitamin B-1] 100 mg PO BID-W/MEALS #30 tab Ipratropium-Albuterol Nebulize [Duoneb 0.5 mg-3 mg/3 ml Soln] 3 ml INHALATION RT-Q4H PRN PRN Reason: Shortness Of Breath Cholecalciferol [Vitamin D3 (25 Mcg = 1000 Iu)] 50 mcg PO DAILY Fluticasone/Salmeterol [Advair 500-50 Diskus] 1 puff INHALATION RT-DAILY Albuterol Sulfate [Proair Hfa] 2 puff INHALATION RT-QID PRN PRN Reason: Shortness Of Breath Lidocaine 2% Gel [Xylocaine Jelly 2%] 1 applic TOPICAL DAILY PRN PRN Reason: Hemorrhoids Changed lisinopriL [Zestril] 10 mg PO DAILY #0 Discharge Medication List Atorvastatin [Lipitor] 80 mg PO HS 03/25/17 [History] FLUoxetine HCL [PROzac] 20 mg PO BID 03/25/17 [History] Hydrocodone/Acetaminophen [[place] 10-325] 1 tab PO QID PRN 03/25/17 [History] Ibuprofen [Motrin] 800 mg PO TID PRN 03/16/19 [History] Thiamine [Vitamin B-1] 100 mg PO BID-W/MEALS #30 tab 03/20/19 [Rx] Albuterol Sulfate [Proair Hfa] 2 puff INHALATION RT-QID PRN 04/28/20 [History] Cholecalciferol [Vitamin D3 (25 Mcg = 1000 Iu)] 50 mcg PO DAILY 04/28/20 [History] Fluticasone/Salmeterol [Advair 500-50 Diskus] 1 puff INHALATION RT-DAILY 04/28/20 [History] Ipratropium-Albuterol Nebulize [Duoneb 0.5 mg-3 mg/3 ml Soln] 3 ml INHALATION RT-Q4H PRN 04/28/20 [History] Lidocaine 2% Gel [Xylocaine Jelly 2%] 1 applic TOPICAL DAILY PRN 04/28/20 [History] Nystatin 100,000 Unit/ml Susp [Mycostatin Oral Susp] 5 ml PO QID #200 ml 04/29/20 [Rx] lisinopriL [Zestril] 10 mg PO DAILY #0 04/29/20 [Rx] Follow up Appointment(s)/Referral(s): Yfn Tao DO [Primary Care Provider] - 3 Days Activity/Diet/Wound Care/Special Instructions: Cardiac renal diet Discharge Disposition: HOME SELF-CARE
--- NOTE | 2020-04-29 14:40 | P.CRDCN ---
History of Present Illness Consult date: 04/29/20 History of present illness: CHIEF COMPLAINT: CHF HISTORY OF PRESENT ILLNESS: This is a 59-year-old female with a past medical history significant for hypertension, hyperlipidemia, asthma, COPD, GERD, former diabetes mellitus, and current nicotine dependence. Patient does not follow with a music agent. We have been asked to see the patient in consultation for congestive heart failure. Patient states for the last 2 weeks she has been having difficulty swallowing, shortness of breath, and felt like the glands in her neck were swollen. She states she was placed on amoxicillin and steroids. She went back to see her PCP due to increased SOB and lower extremity edema. Patient was tested for Covid there and she states it was negative. She had BNP performed at the office which was 1390. She was directed by her primary care physician to come to the emergency room for further evaluation. Repeat BNP performed was 978. She was started on IV Lasix 40 mg every 12 hours. At the time of examination, the patient denies any chest pain. She reports shortness of breath. She reports that she was wheezing significantly yesterday. She reports her lower extremity edema has resolved. DIAGNOSTICS: EKG reveals sinus mechanism with no signs of acute ischemia Chest CTA: Negative for pulmonary. [id number] emphysematous change with tiny right pleural effusion. Bilateral atelectatic changes. Some limited acute infiltrate right lung may be present. Chest xray COPD, basilar infiltrates, and small effusions Laboratory data: WBC 10.8. Hemoglobin 10.1. Platelet count 341. Sodium 135. Potassium 4.2. BUN 14. Creatinine 0.71. Current home cardiac medications include Lipitor 80 mg daily and lisinopril 20 mg daily REVIEW OF SYSTEMS: At the time of my exam: CONSTITUTIONAL: Denies fever or chills. HEENT: Denies blurred vision, vision changes, or eye pain. Denies hemoptysis CARDIOVASCULAR: Denies chest pain, orthopnea, PND or palpitations RESPIRATORY: No shortness of breath. GASTROINTESTINAL: Denies abdominal pain. Denies nausea or vomiting. HEMATOLOGIC: Denies bleeding disorders. GENITOURINARY: Denies any blood in urine. SKIN: Denies pruitis. Denies rash. PHYSICAL EXAM: VITAL SIGNS: Reviewed. GENERAL: Well-developed in no acute distress. HEENT: Head is normocephalic. Pupils are equal, round. Sclerae anicteric. Mucous membranes of the mouth are moist. Neck supple. No JVD or thyromegaly LUNGS: Respirations even and unlabored. Lungs diminished with mild expiratory wheezing HEART: Regular rate and rhythm. S1 and S2 heard. ABDOMEN: Soft. Nondistended. Nontender. EXTREMITIES: Normal range of motion. No clubbing or cyanosis. Peripheral pulses intact. No lower extremity edema NEUROLOGIC: Awake and alert. Oriented x 3. ASSESSMENT: Shortness of breath Likely acute exacerbation of COPD Possible cor pulmonale Hypertension Hyperlipidemia Former diabetes mellitus, resolved with weight loss per patient Nicotine dependence, patient smokes 1 pack per day PLAN: 2D echo obtained revealing EF 60-65% Patient clinically without signs of heart failure at this time Patient is stable from a cardiac standpoint. We will sign off. Please reconsult if needed. Nurse practitioner note has been reviewed by physician. Signing provider agrees with the documented findings, assessment, and plan of care. Past Medical History Past Medical History: Asthma, COPD, GERD/Reflux, Hyperlipidemia, Hypertension, Liver Disease, Pneumonia, Seizure Disorder Additional Past Medical History / Comment(s): Chronic bronchitis, seizure disorder since infancy and pt states last seizure was 3.5 week ago, pt no longer on diabetic meds since wt loss, hepatitis C, ETOH abuse-pt has not drank for one month/past withdrawal, alcoholic hepatitis, chronic cervical and low back pain, diverticular disease per past medical record but pt does not recall, benign colon polyps. History of Any Multi-Drug Resistant Organisms: None Reported Past Surgical History: Breast Surgery, Orthopedic Surgery Additional Past Surgical History / Comment(s): left fallopian tube removed and oophorectomy d/t tubal /cysts, cysts removed from tommy breasts, cyst removed from forehead, left knee arthroscopy x 2, tommy catact sx with lens placed, colonoscopy/polypectomy, hemorrhoidectomy Past Anesthesia/Blood Transfusion Reactions: No Reported Reaction Smoking Status: Current every day smoker - Past Family History Mother Family Medical History: Cancer, COPD Additional Family Medical History / Comment(s): Mother had lung cancer. Father Family Medical History: Liver Disease Additional Family Medical History / Comment(s): Father had liver cirrhosis. He was an alcoholic. Medications and Allergies Home Medications Medication Instructions Recorded Confirmed Type Atorvastatin [Lipitor] 80 mg PO HS 03/25/17 04/28/20 History FLUoxetine HCL [PROzac] 20 mg PO BID 03/25/17 04/28/20 History Hydrocodone/Acetaminophen [[place] 1 tab PO QID PRN 03/25/17 04/28/20 History 10-325] Ibuprofen [Motrin] 800 mg PO TID PRN 03/16/19 04/28/20 History Thiamine [Vitamin B-1] 100 mg PO BID-W/MEALS #30 tab 03/20/19 04/28/20 Rx Albuterol Sulfate [Proair Hfa] 2 puff INHALATION RT-QID PRN 04/28/20 04/28/20 History Cholecalciferol [Vitamin D3 (25 50 mcg PO DAILY 04/28/20 04/28/20 History Mcg = 1000 Iu)] Fluticasone/Salmeterol [Advair 1 puff INHALATION RT-DAILY 04/28/20 04/28/20 History 500-50 Diskus] Ipratropium-Albuterol Nebulize 3 ml INHALATION RT-Q4H PRN 04/28/20 04/28/20 History [Duoneb 0.5 mg-3 mg/3 ml Soln] Lidocaine 2% Gel [Xylocaine Jelly 1 applic TOPICAL DAILY PRN 04/28/20 04/28/20 History 2%] Nystatin 100,000 Unit/ml Susp 5 ml PO QID #200 ml 04/29/20 Rx [Mycostatin Oral Susp] lisinopriL [Zestril] 10 mg PO DAILY #0 04/29/20 04/28/20 Rx Allergies Allergy/AdvReac Type Severity Reaction Status Date / Time naproxen [From Naprosyn] Allergy Mild Nausea & Verified 04/28/20 15:58 Vomiting propoxyphene Allergy Nausea & Verified 04/28/20 15:58 [From Darvocet-N] Vomiting cefuroxime AdvReac Abdominal Verified 04/28/20 15:58 Pain Physical Exam Vitals: Vital Signs Temp Pulse Pulse Resp BP BP Pulse Ox 04/29/20 07:59 84 04/29/20 07:41 84 04/29/20 07:00 98.7 F 87 18 122/76 97 04/29/20 01:04 98.6 F 81 16 128/81 97 04/28/20 20:59 76 18 04/28/20 20:52 75 18 04/28/20 20:00 98.4 F 89 18 119/81 98 04/28/20 15:00 98.0 F 86 85 18 135/93 138/90 99 04/28/20 14:30 87 18 141/88 98 04/28/20 14:10 87 18 141/88 97 04/28/20 13:10 98.2 F 100 20 141/88 100 Intake and Output 04/28/20 04/29/20 04/29/20 22:59 06:59 14:59 Intake Total 400 300 Balance 400 300 Intake: Oral 400 300 Other: Voiding Method Toilet # Voids 2 3 Weight 63.957 kg Results 04/28/20 13:35 04/28/20 13:35 Cardiac Enzymes 04/28/20 Range/Units 13:35 Troponin I <0.012 (0.000-0.034) ng/mL Coagulation 04/28/20 Range/Units 13:35 PT 9.4 (9.0-12.0) sec APTT 23.1 (22.0-30.0) sec CBC 04/28/20 Range/Units 13:35 WBC 10.8 H (3.8-10.6) k/uL RBC 2.68 L (3.80-5.40) m/uL Hgb 10.1 L (11.4-16.0) gm/dL Hct 31.9 L (34.0-46.0) % Plt Count 341 (150-450) k/uL Comprehensive Metabolic Panel 04/28/20 Range/Units 13:35 Sodium 135 L (137-145) mmol/L Potassium 5.2 H (3.5-5.1) mmol/L Chloride 104 (98-107) mmol/L Carbon Dioxide 24 (22-30) mmol/L BUN 14 (7-17) mg/dL Creatinine 0.71 (0.52-1.04) mg/dL Glucose 91 (74-99) mg/dL Calcium 9.3 (8.4-10.2) mg/dL Current Medications Generic Name Dose Route Start Last Admin Trade Name Freq PRN Reason Stop Dose Admin Hydrocodone Bitart/Acetaminophen 1 each 04/28/20 17:44 04/29/20 07:09 Hydrocodone/Apap 10-325mg 1 Each Tab PO 1 each QID PRN Administration Pain Albuterol Sulfate 2.5 mg 04/28/20 17:44 Albuterol Nebulized 2.5 Mg/3 Ml INHALATION RT-QID PRN Shortness Of Breath Albuterol/Ipratropium 3 ml 04/28/20 17:44 04/29/20 07:41 Ipratropium-Albuterol 3 Ml Neb INHALATION 3 ml RT-Q4H PRN Administration Shortness Of Breath Atorvastatin Calcium 80 mg 04/28/20 21:00 04/28/20 20:43 Atorvastatin 80 Mg Tab PO 80 mg HS [place] Administration Budesonide/Formoterol Fumarate 2 puff 04/29/20 08:00 04/29/20 07:41 Symbicort 160-4.5 Mcg Inhaler INHALATION 2 puff RT-BID [place] Administration Cholecalciferol 50 mcg 04/29/20 09:00 04/29/20 08:49 Cholecalciferol 25 Mcg (1000 Iu) Tablet PO 50 mcg DAILY [place] Administration Fluoxetine HCl 20 mg 04/28/20 21:00 04/29/20 08:49 Fluoxetine Hcl 20 Mg Cap PO 20 mg BID [place] Administration Furosemide 40 mg 04/28/20 21:00 04/29/20 08:49 Furosemide 40 Mg Tab PO 40 mg Q12HR [place] Administration Lisinopril 20 mg 04/29/20 09:00 04/29/20 08:49 Lisinopril 20 Mg Tab PO 20 mg DAILY [place] Administration Thiamine HCl 100 mg 04/29/20 07:30 04/29/20 07:10 Thiamine 100 Mg Tab PO 100 mg BID-W/MEALS [place] Administration Intake and Output 04/28/20 04/29/20 04/29/20 22:59 06:59 14:59 Intake Total 400 300 Balance 400 300 Intake: Oral 400 300 Other: Voiding Method Toilet # Voids 2 3 Weight 63.957 kg 04/28/20 13:35 04/28/20 13:35
[2020-04-29 15:24] VITALS: PULSE 84
[2020-04-29 16:33] VITALS: BP 115/73; TEMP 98.3
--- NOTE | 2020-04-29 18:00 | ECHOF ---
Referral Reason:LV function MEASUREMENTS -------- HEIGHT: 165.1 cm WEIGHT: 64.0 kg BP: 122/76 RVIDd: 2.6 cm (< 3.3) IVSd: 1.2 cm (0.6 - 1.1) LVIDd: 3.5 cm (3.9 - 5.3) LVPWd: 1.2 cm (0.6 - 1.1) IVSs: 1.5 cm LVIDs: 2.5 cm LVPWs: 1.4 cm LA Diam: 3.2 cm (2.7 - 3.8) Ao Diam: 3.1 cm (2.0 - 3.7) AV Cusp: 1.9 cm (1.5 - 2.6) MV EXCURSION: 12.690 mm (> 18.000) MV EF SLOPE: 59 mm/s (70 - 150) EPSS: 0.3 cm MV E Jerzy: 1.02 m/s MV DecT: 161 ms MV A Jerzy: 0.79 m/s MV E/A Ratio: 1.29 RAP: 5.00 mmHg RVSP: 28.52 mmHg FINDINGS -------- This was a technically adequate study. The left ventricular size is normal. There is borderline concentric left ventricular hypertrophy. Overall left ventricular systolic function is normal with, an EF between 60 - 65 %. The right ventricle is normal in size. The left atrial size is normal. The right atrium is normal in size. Interatrial and interventricular septum intact. There is mild aortic valve sclerosis. There is trace to mild mitral regurgitation. Mild tricuspid regurgitation present. Right ventricular systolic pressure is normal at < 35 mmHg. Trace/mild (physiologic) pulmonic regurgitation. The aortic root size is normal. Normal inferior vena cava with normal inspiratory collapse consistent with estimated right atrial pre ssure of 5 mmHg. There is no pericardial effusion. CONCLUSIONS -------- 1. The left ventricular size is normal. 2. There is borderline concentric left ventricular hypertrophy. 3. Overall left ventricular systolic function is normal with, an EF between 60 - 65 %. 4. There is mild aortic valve sclerosis. 5. There is trace to mild mitral regurgitation. 6. Mild tricuspid regurgitation present. 7. Trace/mild (physiologic) pulmonic regurgitation. 8. There is no pericardial effusion. SUPERVISOR TRAVEL TRAILER: Liz Toro RDCS
== END 2020-04-29 17:18 | disposition home or self-care (01) ==
LOC: SUPCPDRO 13:09 → EC 13:09 → 6NMEDSUR 14:53
PROVIDERS: ADMIT Internal Medicine; ATTEND Internal Medicine
DX: R06.02 Shortness of breath (principal); R06.00 Dyspnea, unspecified; J44.9 Chronic obstructive pulmonary disease, unspecified; B37.0 Candidal stomatitis; H93.8X3 Other specified disorders of ear, bilateral; K21.9 Gastro-esophageal reflux disease without esophagitis; E78.5 Hyperlipidemia, unspecified; I10 Essential (primary) hypertension; R79.89 Other specified abnormal findings of blood chemistry; D72.829 Elevated white blood cell count, unspecified; D75.89 Other specified diseases of blood and blood-forming organs; G40.909 Epilepsy, unspecified, not intractable, without status epilepticus; K70.10 Alcoholic hepatitis without ascites; F10.11 Alcohol abuse, in remission; G89.29 Other chronic pain; M54.2 Cervicalgia; M54.5 Low back pain; M79.89 Other specified soft tissue disorders; E87.6 Hypokalemia; F17.210 Nicotine dependence, cigarettes, uncomplicated; F41.9 Anxiety disorder, unspecified; T46.4X5A Adverse effect of angiotensin-converting-enzyme inhibitors, initial encounter; F32.9 Major depressive disorder, single episode, unspecified; Z87.01 Personal history of pneumonia (recurrent); Z87.09 Personal history of other diseases of the respiratory system; Z86.19 Personal history of other infectious and parasitic diseases; Z86.010 Personal history of colon polyps; Z79.899 Other long term (current) drug therapy; Z79.891 Long term (current) use of opiate analgesic; Z79.1 Long term (current) use of non-steroidal anti-inflammatories (NSAID); Z88.8 Allergy status to other drugs, medicaments and biological substances; Z88.5 Allergy status to narcotic agent; Z88.1 Allergy status to other antibiotic agents; Z86.39 Personal history of other endocrine, nutritional and metabolic disease; Z82.5 Family history of asthma and other chronic lower respiratory diseases; Z80.1 Family history of malignant neoplasm of trachea, bronchus and lung; Z83.79 Family history of other diseases of the digestive system; R13.10 Dysphagia, unspecified; Z20.822 Contact with and (suspected) exposure to COVID-19
CPT/HCPCS: 96374; 99285; 36415; 94640 ×3; 93005; 93306; 83880; 80048; 84484; 85025; 85610; 85730; 87635; 71275; G0378 ×2; J1940; Q9967

== ENCOUNTER → 2020-07-14 | Outpatient (CLI) | payer OTHER ==
--- NOTE | 2020-07-15 03:46 | US ---
EXAMINATION TYPE: US carotid duplex BILAT DATE OF EXAM: 07/14/2020 COMPARISON: NONE CLINICAL HISTORY: R42 DIZZINESS AND GIDDINESS. Dizziness and giddiness. Hx hypertension, hyperlipidem ia. Current smoker. EXAM MEASUREMENTS: RIGHT: Peak Systolic Velocity (PSV) cm/sec ----- Right CCA: 60.5 ----- Right ICA: 107.8 ----- Right ECA: 121.6 ICA/CCA ratio: 1.8 RIGHT: End Diastole cm/sec ----- Right CCA: 22.1 ----- Right ICA: 37.9 ----- Right ECA: 24.7 LEFT: Peak Systolic Velocity (PSV) cm/sec ----- Left CCA: 66.8 ----- Left ICA: 94.9 ----- Left ECA: 171.0 ICA/CCA ratio: 1.4 LEFT: End Diastole cm/sec ----- Left CCA: 21.5 ----- Left ICA: 35.5 ----- Left ECA: 33.9 VERTEBRALS (direction of flow): Right Vertebral: Antegrade Left Vertebral: Antegrade Rhythm: Normal Intimal thickening seen bilaterally. Plaque seen within right bulb, right proximal ICA, right proxima l ECA, mid left CCA, left bulb, and left ECA. Elevated velocity within left ECA. Hypoechoic area with hyperechoic center seen within left neck: 1.3 x 0.8 x 0.6 cm. IMPRESSION: There is antegrade flow in the vertebral arteries. There is bilateral plaque formation at the carotid artery bifurcations and close to 50% stenosis in both internal carotid arteries. Criteria for Assigning % of Stenosis / Diameter reduction (Estimation based on the indirect measurements of the internal carotid artery velocities (ICA PSV). 1. Normal (no stenosis)=ICA PSV < 125 cm/s: ratio < 2.0: ICA EDV<40 cm/s. 2. Less than 50% stenosis=ICA PSV < 125 cm/s: ratio < 2.0: ICA EDV<40 cm/s. 3. 50 to 69% stenosis=ICA PSV of 125 to 230 cm/s: ration 2.0 ? 4.0: ICA EDV 40-100 cm/s. 4. Greater than 70% stenosis to near occlusion= ICA PSV > 230 cm/s: ratio > 4.0: ICA EDV > 100 cm/s. 5. Near occlusion= ICA PSV velocities may be low or undetectable: variable ratio and ICA EDV. 6. Total occlusion=unable to detect flow.
== END | disposition home or self-care (01) ==
LOC: RADUSWWP 16:42
PROVIDERS: ATTEND Family Medicine
DX: I65.23 Occlusion and stenosis of bilateral carotid arteries (principal); F17.200 Nicotine dependence, unspecified, uncomplicated
CPT/HCPCS: 93880

== ENCOUNTER → 2020-07-20 | Outpatient (CLI) | payer OTHER ==
--- NOTE | 2020-07-21 11:53 | MM ---
Reason for exam: clinical finding. Last mammogram was performed 3 years ago. History: Benign excisional biopsy of the right breast, 2014. Indicated problem(s): pain in the left breast. Physical Findings: Nurse did not find any significant physical abnormalities on exam. MG 3D Diag Mammo W/Cad SU Bilateral CC and MLO view(s) were taken. Prior study comparison: July 23, 2017, bilateral MG 3d screening mammo w/cad. July 17, 2016, mammogram, performed at [facility]. There are scattered fibroglandular densities. Benign vascular calcifications. These results were verbally communicated with the patient and result sheet given to the patient on 07/20/20. ASSESSMENT: Incomplete: need additional imaging evaluation, BI-RAD 0 RECOMMENDATION: Ultrasound of the left breast. (focal left breast pain)
--- NOTE | 2020-07-21 11:55 | USB ---
Reason for exam: additional evaluation requested from abnormal screening. History: Benign excisional biopsy of the right breast, 2015. US Breast Limited LT Left limited breast ultrasound including focal area of concern, retroareolar and axilla demonstrates no cystic or solid lesion seen. No finding at pain left breast 1 o'clock. These results were verbally communicated with the patient and result sheet given to the patient on 07/20/20. ASSESSMENT: Benign, BI-RAD 2 RECOMMENDATION: Routine screening mammogram of both breasts in 1 year. Manage patient on a clinical basis.
== END | disposition home or self-care (01) ==
LOC: RADMAMWWP 13:39
PROVIDERS: ATTEND Family Medicine
DX: N64.89 Other specified disorders of breast (principal); R92.1 Mammographic calcification found on diagnostic imaging of breast
CPT/HCPCS: 77066; 76642; G0279; 77062

== ENCOUNTER → 2020-09-21 | Outpatient (CLI) | payer OTHER ==
--- NOTE | 2020-09-21 10:43 | XR ---
Cervical spine HISTORY: [id number] CERV DISC DISORDER 5 views cervical spine There is multilevel facet arthropathy change. Atherosclerotic vascular calcifications are noted in th e carotid artery distribution. Oblique images are limited for evaluation of the foramina on the left, there is foraminal encroachment on the right at C2-3, C5-6 and C6-7, C7-T1. There is multilevel spon dylosis. Minimal anterolisthesis grade 1 C4-5. Loss of disc height present at the intervertebral leve ls greatest at C5-6 and C6-7, C7-T1. Prevertebral soft tissues are within normal limits. IMPRESSION: Degenerative disc disease and facet arthropathy, neural foraminal encroachment. Additiona l findings above.
== END | disposition home or self-care (01) ==
LOC: RADXRYALE 10:12
PROVIDERS: ATTEND Physician Assistant Medical
DX: M50.30 Other cervical disc degeneration, unspecified cervical region (principal); M12.88 Other specific arthropathies, not elsewhere classified, other specified site
CPT/HCPCS: 72050

== ENCOUNTER → 2020-11-26 | Outpatient (CLI) | payer OTHER ==
--- NOTE | 2020-11-30 08:20 | MR ---
EXAMINATION TYPE: MR cervical spine wo con DATE OF EXAM: 11/26/2020 11:20 AM COMPARISON: NONE HISTORY: Neck pain for 20 years with pain going both arms to fingers. Multiplanar MultiSpin echo imaging of the cervical spine was performed. Comparison: none C2-C3: No evidence for degenerative disc disease. No disc bulge/herniation or protrusion. No Canal stenosis. Foramina are patent bilaterally. C3-C4: No evidence for degenerative disc disease. No disc bulge/herniation or protrusion. No Canal stenosis. Foramina are patent bilaterally. C4-C5: No evidence for degenerative disc disease. No disc bulge/herniation or protrusion. No Canal stenosis. Foramina are patent bilaterally. C5-C6: Moderate disc desiccation with circumferential disc bulge greatest posteriorly. Effacement kenzie tral thecal sac. Hypertrophic changes seen resulting in mild central stenosis. Bilateral foraminal en croachment identified. C6-C7: Moderate disc desiccation with circumferential disc bulge greatest posteriorly. Effacement kenzie tral thecal sac. Hypertrophic changes seen resulting in mild central stenosis. Bilateral foraminal en croachment identified. C7-T1: No evidence for degenerative disc disease. No disc bulge/herniation or protrusion. No Canal stenosis. Foramina are patent bilaterally. Cervical segments are intact. There is normal alignment. Cervical spinal cord is of normal signal. Craniovertebral junction relationships are within normal limits. IMPRESSION: 1. Degenerative disc disease and central stenosis at C5-6 and C6-7.
== END | disposition home or self-care (01) ==
LOC: RADMRIMAIN 10:36
PROVIDERS: ATTEND Family Medicine
DX: M50.323 Other cervical disc degeneration at C6-C7 level (principal); M48.02 Spinal stenosis, cervical region
CPT/HCPCS: 72141

== ENCOUNTER → 2021-01-23 | Outpatient (CLI) | payer OTHER ==
--- NOTE | 2021-01-24 08:05 | XR ---
EXAMINATION TYPE: XR chest 2V DATE OF EXAM: 01/23/2021 COMPARISON: Chest x-ray 04/27/2020, chest CT 04/28/2020 HISTORY: Cough, wheezing and shortness of breath for 2 weeks TECHNIQUE: Frontal and lateral views of the chest are obtained. FINDINGS: There is no focal air space opacity, pleural effusion, or pneumothorax seen. Suspect there is bronchial wall thickening. There are prominent lung volumes with flattening of hemidiaphragms and increased retrosternal airspace consistent with COPD. Interstitium is somewhat coarsened. Aorta is d ense. The cardiac silhouette size is within normal limits. The osseous structures are stable. IMPRESSION: Correlate for bronchitis. Emphysema. Follow-up as indicated.
== END | disposition home or self-care (01) ==
LOC: RADXRYALE 16:05
PROVIDERS: ATTEND Physician Assistant Medical
DX: R91.8 Other nonspecific abnormal finding of lung field (principal)
CPT/HCPCS: 71046

== ENCOUNTER → 2021-05-03 | Outpatient (CLI) | payer OTHER ==
--- NOTE | 2021-05-03 08:55 | P.CON ---
Consult Note - . Consult date: 05/03/21 Assessment/Plan:: HISTORY OF PRESENT ILLNESS: 60 -year-old female as a referral from Dr. Praveen Nina presents today with neck pain due to spinal stenosis, DDD, disc bulges and bilateral neuroforaminal stenoses for evaluation. Patient states her pain level is 7 out of 10 in intensity, dull, achy in the middle and lower aspects of her cervical spine with shooting pain, burning sensation to the bilateral shoulders. And describes pain also as "rope pulling my neck." Pain is provoked with lifting with the upper extremities, forward flexion and extension of the cervical spine. Is relieved with medications, injections, ice, physical therapy 1 year ago, repositioning and rest. Patient admits she has tried "nerve blocks" but were ineffective. Past Medical History: Asthma, COPD, GERD/Reflux, Hyperlipidemia, Hypertension, Liver Disease, Pneumonia, Seizure Disorder (since infancy), Hep C, Alcoholic Hepatitis, Diverticular Disease Past Surgical History: Breast Cystectomy Orthopedic Surgery, Oophorectomy, L Knee Arthroscopy x 2, Colonoscopy/polypectomy, Hemorrhoidectomy Social History: Daily Tobacco user. Daily Beer consumption. Denies illicit drug use. Works as a delivery driver. Family History: Mother- Lung Cancer, COPD. Father- Liver Disease/ Cirrhosis. Alcoholism All: See list Meds: See list REVIEW OF ORGAN SYSTEMS: CONSTITUTIONAL: No fevers or chills. No recent weight loss. HEENT: No visual acuity loss, eye pain, difficulties with hearing. No nosebleeds. No difficulty swallowing. RESPIRATORY: Denies any troubles with breathing or dyspnea on exertion. CARDIOVASCULAR: Denies any chest pain, palpitations, or recent heart attacks. GASTROINTESTINAL: Denies fatty food intolerance. Has change in bowel habits and gas bloat. GENITOURINARY: Denies any blood in urine. Has increased urinary frequency. NEUROLOGICAL: + numbness and tingling along the distal extremities. No seizure disorders or headaches. MUSCULOSKELETAL: + back pain SKIN: No skin cancer. No rash. PSYCHIATRIC: Denies current depression or suicidal thoughts. ENDOCRINE: Denies current thyroid disorders. Denies any blood sugar glucose intolerance. HEME/LYMPHATIC: Denies any lumps and bumps around the neck. History of deep venous thrombosis. ALLERGY/IMMUNOLOGY: No immunoglobulin therapy. No immune deficiencies. BREAST: Denies current breast lumps, pain or nipple discharge. Physical Examinations : Constitutional : Cooperative , not in acute distress . HEENT: Neck supple. No Lymphadenopathy. Normal thyroid size . Eyes no ptosis , no icterus, no photophobia . Hearing intact. Normal oropharynx. No Thrush. Respiratory : Chest clear to auscultations bilaterally. No wheezing. No rhonchi. Cardiovascular : Regular rate and rhythm , S1 / S2. No S3 . No S4. Gastrointestinal : Abdomen soft. No tenderness. Bowel sounds x 4. No organomegaly . Genitourinary : Deferred. Neurologic : Cranial nerve II to XII intact. No focal neurological deficits. Psychiatric : alert & oriented x 3. Matching mood & appropriate affect. Judgment & insight intact. Lymphatic No Lymphadenopathy. Musculoskeletal : Cervical Spine Motor strength in the deltoid and biceps: Normal right side. Normal Left side Motor strength biceps and the wrist extensors: Normal right side . Normal left side Motor strength in the triceps muscle: Normal right side. Normal left side Deep tendon reflexes: Normal at the biceps. Normal at Brachioradialis. Normal at triceps Vertebral body tenderness over C5, C6, C7 Cervical facet loading test: positive bilaterally Spurling test: positive bilaterally Neck distraction test: positive bilaterally Fritz sign: positive bilaterally Lumbar spine Motor strength lower extremities ,thigh and legs 5/5 Right side , 5/5 Left side Deep tendon reflexes : Normal Knee Jerk. Normal Ankle Jerk Vertebral body tenderness over Lumbar facet Loading Test: positive Right / positive Left Range of motion of the lumbar spine Flexion 30 degrees, extension 10 degrees Straight Leg Raise test: Left/ Right positive at degree Ladi test: positive right / positive left. Severe tenderness over the Sacroiliac joint on the Right / Left sides Gaenslen test: positive bilaterally Seated flexion test: positive bilaterally. Assessment/ Plan : Recommendation of MARIO C5-C6. May need a series, up to 3 within a six-month period, to obtain optimal pain relief. May reconsider nerve blocks in the near future if indicated. Risks, benefits of procedure discussed and patient verbalized understanding. Denies aspirin or anti- coagulant use. Denies any medical history of diabetes mellitus. All questions answered. I have spent greater than 50 minutes on patient care today. Dr Cheng was available by phone for the evaluation of this patient. The time was used to review the medical records including relevant urine studies and Prescription history (MAPs), review of the available imaging, evaluation and examination of the patient, coordination of care with the medical staff and if applicable r eferring physicians, as well as creation of the medical record PQRS Measure Charge Sheet PQRS Narrative: Smoking Status Current every day smoker Home Medications: Ambulatory Orders Atorvastatin [Lipitor] 80 mg PO HS 03/25/17 FLUoxetine HCL [PROzac] 20 mg PO BID 03/25/17 Hydrocodone/Acetaminophen [[place] 10-325] 1 tab PO QID PRN 03/25/17 Ibuprofen [Motrin] 800 mg PO TID PRN 03/16/19 Thiamine [Vitamin B-1] 100 mg PO BID-W/MEALS #30 tab 03/20/19 Albuterol Sulfate [Proair Hfa] 2 puff INHALATION RT-QID PRN 04/28/20 Cholecalciferol [Vitamin D3 (25 Mcg = 1000 Iu)] 50 mcg PO DAILY 04/28/20 Fluticasone/Salmeterol [Advair 500-50 Diskus] 1 puff INHALATION RT-DAILY 04/28/20 Ipratropium-Albuterol Nebulize [Duoneb 0.5 mg-3 mg/3 ml Soln] 3 ml INHALATION RT-Q4H PRN 04/28/20 Lidocaine 2% Gel [Xylocaine Jelly 2%] 1 applic TOPICAL DAILY PRN 04/28/20 Nystatin 100,000 Unit/ml Susp [Mycostatin Oral Susp] 5 ml PO QID #200 ml 04/29/20 lisinopriL [Zestril] 10 mg PO DAILY #0 04/29/20
[2021-05-03 11:33] VITALS: BP 142/82; PULSE 91; RESP 18; TEMP 98.5
== END ==
LOC: PNWHC3 08:12
PROVIDERS: ATTEND Physician Assistant Medical
DX: M54.2 Cervicalgia (principal); J44.9 Chronic obstructive pulmonary disease, unspecified; K21.9 Gastro-esophageal reflux disease without esophagitis; E78.5 Hyperlipidemia, unspecified; I10 Essential (primary) hypertension; F17.200 Nicotine dependence, unspecified, uncomplicated; Z79.51 Long term (current) use of inhaled steroids; Z79.899 Other long term (current) drug therapy; Z88.6 Allergy status to analgesic agent; Z88.1 Allergy status to other antibiotic agents
CPT/HCPCS: 99211

== ENCOUNTER → 2021-07-19 | Outpatient (CLI) | payer OTHER ==
--- NOTE | 2021-07-19 14:21 | CTL ---
EXAMINATION TYPE: CT Low Dose Lung DATE OF EXAM ORDERED: 07/19/2021 HISTORY: Long-term tobacco use. Lung cancer screening CT DLP: 70.[address] CTDI: 2.20 mGy Automated exposure control for dose reduction was used. SCREENING VISIT: Baseline COMPARISON: CTA chest April 28, 2020 TECHNIQUE: Low dose computed tomography scan was performed through the chest at 1 mm thick sections a nd reconstructed images in multiple planes at 1 mm and [address] DIAGNOSTIC QUALITY: Satisfactory FINDINGS: LUNG NODULES: Present, detailed below: Occasional scattered micronodules seen. For reference 3 to 4 mm subpleural left lower lobe nodule axi al image 171. No significant greater than 5 mm pulmonary nodules. LUNGS: COPD: Severity: [id number] Fibrosis: Severity: Mild bibasilar Lymph nodes: None Other findings: None RIGHT PLEURAL SPACE: Effusion: None Calcification: None Thickening: None Pneumothorax: None LEFT PLEURAL SPACE: Effusion: None Calcification: None Thickening: None Pneumothorax: None HEART: Heart Size: Normal Coronary Calcification: Moderate Pericardial Effusion: None OTHER FINDINGS: Upper abdomen: None Bony thorax: None Supraclavicular region: None Other: Small size hiatal hernia on current study IMPRESSION: Mild to moderate emphysematous change without significant greater than [address] u[address] LUNG RAD AND CT CHEST RECOMMENDATION: Lung-Rad 2 Benign Appearance or Behavior: Continue annual sc reening with LDCT in 12 months. S Modifier (other clinically significant findings): None
== END | disposition home or self-care (01) ==
LOC: RADCTMAIN 10:36
PROVIDERS: ATTEND Family Medicine
DX: Z12.2 Encounter for screening for malignant neoplasm of respiratory organs (principal); J43.9 Emphysema, unspecified; Z87.891 Personal history of nicotine dependence
CPT/HCPCS: 71271

== ENCOUNTER 2021-12-05 08:29 | Day surgery (SDC) | payer OTHER ==
[~2021-12-05 08:29] MED LIST changes: +LIDOCAINE 1% (10MG/ML) FOR IV START INTRADERMA PRN; -LIDOCAINE 1% 20 ML VIAL (10MG/ML) FOR IV START INTRADERMA PRN
[2021-12-05 08:56] VITALS: TEMP 96.6
[2021-12-05] MEDS ORDERED: fentaNYL (PF) 50 MCG/ML 2 ML AMP ONE (09:07)
[2021-12-05] MEDS ORDERED: IOPAMIDOL M200 10 ML VIAL ONE (09:07)
[2021-12-05] MEDS ORDERED: DEXAMETHASONE SOD PHOSPHATE 10 MG/ML 1 ML VIAL ONE (09:07)
[2021-12-05] MEDS ORDERED: MIDAZOLAM 2 MG/2 ML VIAL ONE (09:07)
--- NOTE | 2021-12-05 09:20 | P.PCN ---
Date of Procedure: 12/05/21 Procedure(s) Performed: . PROCEDURE 1. Cervical epidural steroid injection under fluoroscopic guidance, C6-7 (fluoroscopy images available in the radiology department ) 2. Cervical epidurogram. PREOPERATIVE DIAGNOSIS: 1- Cervical Degenerative Disc Diseases 2- Cervical radiculopathy., 3-cervical spondylosis with cervical Facet arthropathy without myelopathy.4-cervical spinal stenosis POSTOPERATIVE DIAGNOSIS: : 1- Cervical Degenerative Disc Diseases , 2- Cervical radiculopathy. 3-,cervical spondylosis with cervical Facet arthropathy without myelopathy. 4-cervical spinal stenosis ANESTHESIA: moderate sedation, with Versed 2 mg and Fentanyl 100 mcg. Sedation start time : 09:10 Sedation end time : 09:17 EBL 0 PROCEDURE INDICATION: The patient with neck pain and radiculitis unresponsive to conservative treatment consents for procedure. PROCEDURE DESCRIPTION / TECHNIQUE: The patient was seen and identified in the preoperative area. Risks, benefits, complications, including but not limited to infections ,bleeding , allergic reactions to the medications ,and not complete pain releife, and alternatives were discussed with the patient, the patient agreed to proceed with the procedure and signed the consent. Patient was taken to the OR and time out was completed. The patient was placed in the prone position on the procedure table. A pillow was placed under the patients chest to increase the cervical interlaminar space. The cervical area was prepped and draped in the usual sterile fashion. Vital signs were closely monitored during the procedure. Conscious sedation was used during the procedure to decrease patients anxiety. Using anterior-posterior fluoroscopy, the C6-7 interlaminar space was identified and the skin over this site was marked and then infiltrated with 1% lidocaine subcutaneously. Subsequently, a 20-gauge 3-1/2-inch Tuohy epidural needle was inserted and advanced toward the epidural space by means of the ``hanging-drop technique and guided by AP and lateral fluoroscopy. The correct needle position in the epidural space was verified with the injection of 2 mL of the water soluble contrast dye Isovue-200 and observing an excellent epidurogram with the epidural spread of the dye, after negative aspiration for blood and CSF and in the absence of paresthesias. then, mixture containing 20 mg Dexamethasone and 2 ml of preservative-free normal saline injected and a washout of epidurogram w as seen. Needle was withdrawn intact, skin was cleansed, and bandages were applied. Complications= none. Disposition= patient was placed in supine position and transferred to the recovery room area in stable condition and there was no evidence of upper or lower extremity motor or sensory deficit after the procedure patient was discharged from recovery room after discharge criteria met and home discharge instructions was given by the staff and patient will follow with the pain clinic in 2-4 weeks
[2021-12-05] MEDS ORDERED: IV FLUID CONTINUATION 1,000 ML IV ONE (09:24)
--- NOTE | 2021-12-05 09:31 | FL ---
EXAMINATION TYPE: FL guided pain mgmt statistic DATE OF EXAM: 12/05/2021 HISTORY: Fluoroscopy time 3 seconds of fluoroscopy provided. IMPRESSION: 1. Fluoroscopy time.
[2021-12-05 09:40] VITALS: BP 124/74; PULSE 78; RESP 18
== END 2021-12-05 09:57 | disposition home or self-care (01) ==
LOC: ORPAIN 08:29
PROVIDERS: ATTEND Specialist
DX: M50.123 Cervical disc disorder at C6-C7 level with radiculopathy (principal); M47.22 Other spondylosis with radiculopathy, cervical region; M48.02 Spinal stenosis, cervical region; Z91.040 Latex allergy status; Z88.6 Allergy status to analgesic agent; Z88.5 Allergy status to narcotic agent; Z88.1 Allergy status to other antibiotic agents
CPT/HCPCS: 62321; J2250; J1100; J3010; Q9966

== ENCOUNTER → 2021-12-25 | Outpatient (CLI) | payer OTHER ==
[2021-12-25 09:03] VITALS: BP 101/73; PULSE 87; RESP 18; TEMP 98.2
--- NOTE | 2021-12-25 14:51 | P.PAINPG ---
PQRS Measure Charge Sheet Comment: A 61 yr old female with a history of severe and chronicneck pain secondary to cervical degenerative disc diseases and spondylosis with facet arthropathy without myelopathy presents today for evaluation s/p MARIO C6-7 Pt states she experienced 50% pain relief x 3 wks s/p procedure. Pain level is currently at 7/10 in intensity, constant, localized on R cervical spine (previously BL cervical spine), stabbing in character w shooting tingling towards the R shoulder. Pain is provoked by rotation. Pain is alleviated with PT x 2 wks in Oct 2021 but stopped due to high fuel prices, heat, medications ([place] from Dr Nina, Ibuprofen), home stretching regimen, repositioning and rest. Interventional pain procedures completed include TIFF C6-7 Patient is currently on [place], Ibuprofen Patient denies any side effects of the medication(s), denies excessive drowsiness or sleepiness, denies suicidal ideation and reports that the current pain medication is helping to control the pain and improve activities of daily living. Patient denies any motor or sensory deficits. Patient denies any fever or night sweats, denies any change in the bowel movements or urination. Physical Examination: -Constitutional: Cooperative. Not in acute distress . - Neurologic: Cranial nerve II to XII intact. No focal neurological def icits. - Psychatric: Alert & oriented x 3. Matching mood & appropriate affect. Judgment and insight intact. - Musculoskeletal: Cervical spine: Muscle bulk/ tone/ strength in the bilateral upper extremities normal Vertebral body tenderness to palpation over BL paraspinal TTP over C2-C7 Spurling test positive Distraction test positive Facet loading test positive Thoracic spine Muscle bulk / tone/ strength in the bilateral paraspinal muscles normal Vertebral body tender to palpation over Facet loading test positive Lumbar spine: Motor bulk/ tone/ strength lower extremities , thigh and legs : 5/5 Deep tendon reflexes : Normal Knee Jerk. Normal Ankle Jerk . Vertebral body tenderness to palpation over Lumbar Facet Loading Test positive Straight Leg Raise: positive at 30 degrees right side/ left side Gaenslen's Test positive Sacral spine : Severe tenderness over the Sacroiliac joint: right side / left side Range of motion: Flexion of the lumbar spine <60 degrees Range of motion: Extension of the lumbar spine <20 degrees Gaenslen's Test positive Sal's Test positive Ladi test: positive right side / left side Thigh Thrust Test Sacral Thrust Test Assessment and plan: Chronic neck pain secondary to cervical degenerative disc disease, spondylosis with facet arthropathy without myelopathy Recommendation of TPIs of BL C2-C7. May need a series, up to every 2-3 mo, for optimal pain relief. Risks, benefits of procedure discussed and pt verbalized understanding. Denies anticoagulant use or medical history of diabetes. Protocol for discontinuation/ continuation of medications discussed. All patient questions answered I have spent less than 30 minutes on patient care today. Dr Cheng was available by phone for the evaluation of this patient. The time was used to re view the medical records including relevant urine studies and Prescription history (MAPs), review of the available imaging, evaluation and examination of the patient, coordination of care with the medical staff and if applicable referring physicians, as well as creation of the medical record - Pain Location Right Neck Non-Pharmacological Interventions: Heat, Inactivity, Physical Therapy Pharmacological Interventions: Epidural, PRN Medication, Scheduled Medication PQRS Narrative: Smoking Status Current every day smoker Hx Alcohol Use (MH) Yes: A beer a day. Home Medications: Ambulatory Orders Atorvastatin [Lipitor] 80 mg PO HS 03/25/17 FLUoxetine HCL [PROzac] 80 mg PO BID 03/25/17 Hydrocodone/Acetaminophen [[place] 10-325] 1 tab PO QID 03/25/17 Ibuprofen [Motrin] 800 mg PO TID PRN 03/16/19 Albuterol Sulfate [Proair Hfa] 2 puff INHALATION RT-QID PRN 04/28/20 Cholecalciferol [Vitamin D3 (25 Mcg = 1000 Iu)] 50 mcg PO DAILY 04/28/20 Fluticasone Propion/Salmeterol [Advair 500-50 Diskus] 1 puff INHALATION BID 04/28/20 Ipratropium-Albuterol Nebulize [Duoneb 0.5 mg-3 mg/3 ml Soln] 3 ml INHALATION RT-Q4H PRN 04/28/20 Lidocaine 2% Gel [Xylocaine Jelly 2%] 1 applic TOPICAL DAILY PRN 04/28/20 lisinopriL [Zestril] 25 mg PO DAILY 07/20/21 Controlled Substance Measures - Controlled Substance Measures Is patient prescribed a controlled substance at discharge?: No
== END ==
LOC: PNWHC3 08:33
PROVIDERS: ATTEND Specialist
DX: M47.812 Spondylosis without myelopathy or radiculopathy, cervical region (principal); M50.30 Other cervical disc degeneration, unspecified cervical region; G89.29 Other chronic pain; Z88.1 Allergy status to other antibiotic agents; Z91.040 Latex allergy status; Z88.6 Allergy status to analgesic agent; Z88.5 Allergy status to narcotic agent; F17.200 Nicotine dependence, unspecified, uncomplicated
CPT/HCPCS: 99211

== ENCOUNTER 2022-02-20 11:20 | Day surgery (SDC) | payer OTHER ==
[2022-02-19 11:16] VITALS: BMI 22.1
[2022-02-20 12:08] VITALS: RESP 16; TEMP 97
[2022-02-20] MEDS ORDERED: methylPREDNISolone ACETATE 40 MG/ML 1 ML VIAL ONE (12:50)
[2022-02-20] MEDS ORDERED: ROPIVACAINE 5 MG/ML 20 ML AMPULE ONE (12:50)
--- NOTE | 2022-02-20 13:07 | P.PCN ---
Date of Procedure: 02/20/22 Procedure(s) Performed: . PROCEDURE 1. Trigger point injections cervical paraspinal muscles , 3 on the right side ,and 4 on the left side cervical paraspinal muscles PREOPERATIVE DIAGNOSIS: 1- Cervical Degenerative Disc Diseases 2- Cervical radiculopathy., 3-cervical spondylosis with cervical Facet arthropathy without myelopathy.4-myofascial pain syndrome and cervical area POSTOPERATIVE DIAGNOSIS: : 1- Cervical Degenerative Disc Diseases , 2- Cervical radiculopathy. 3-,cervical spondylosis with cervical Facet arthropathy without myelopathy. 4-myofascial pain syndrome and cervical area. ANESTHESIA: none EBL 0 PROCEDURE INDICATION: The patient with neck pain and radiculitis unresponsive to conservative treatment consents for procedure. PROCEDURE DESCRIPTION / TECHNIQUE: The patient was seen and identified in the preoperative area. Risks, benefits, complications, including but not limited to infections ,bleeding , allergic reactions to the medications ,and not complete pain releife, and alternatives were discussed with the patient, the patient agreed to proceed with the procedure and signed the consent. Patient was taken to the OR and time out was completed. The patient was placed in the sitting position on the standard monitors applied , and the cervical area prepped with chlorhexidine 3 and under sterile technique each of the trigger point activity is identified in the preop holding area, each one of them injected with the 2 mL of the mixture of ropivacaine 0.5% with 40 mg of Depo-Medrol, total of 14 ML used, 2 mL injected at each trigger point after negative aspiration, total of 4 trigger point injected on the left side cervical paraspinal muscles and 3 on the right side cervical paraspinal muscles, injection done after negative aspiration ,and there was no paresthesia during the injection,the patient tolerated the procedure well ,without any complications, and she will follow up in the pain clinic in a few weeks
[2022-02-20 13:20] VITALS: BP 132/84; PULSE 87
== END 2022-02-20 13:24 | disposition home or self-care (01) ==
LOC: ORPAIN 11:20
PROVIDERS: ATTEND Specialist
DX: M50.10 Cervical disc disorder with radiculopathy, unspecified cervical region (principal); M47.22 Other spondylosis with radiculopathy, cervical region; M79.18 Myalgia, other site
CPT/HCPCS: 20553; J1030; J2795

== ENCOUNTER → 2022-03-12 | Outpatient (CLI) | payer OTHER ==
[2022-03-12 09:19] VITALS: BP 159/94; PULSE 83; RESP 18; TEMP 98.3
--- NOTE | 2022-03-12 14:45 | P.PAINPG ---
PQRS Measure Charge Sheet Comment: A 61 yr old female with a history of severe and chronic neck & back pain secondary to cervical DDD and spondylosis with facet arthropathy without myelopathy presents today for evaluation s/p BL TPIs C2-C7. Pt states she experienced 95% pain relief x 3 wks s/p procedure. Pain level is currently at 5 /10 in intensity, constant, localized in the lower lumbar spine, stabbing in character w shooting towards the BLEs. Pain is provoked by bending, walking for periods of 15min or more, or lifting. Pt states Pt provoked pain. Pt states chiropractor cancelled her treatment due to her intense pain level at the session. Pain is alleviated with medications, laying supine, repositioning and rest. Interventional pain procedures completed include TIFF C6-C7 x1, TIFF C5-C6 x1, BL TPIs C2-C7 x1 Patient is currently on [place] from Dr Nina Patient denies any side effects of the medication(s), denies excessive drows iness or sleepiness, denies suicidal ideation and reports that the current pain medication is helping to control the pain and improve activities of daily living. Patient denies any motor or sensory deficits. Patient denies any fever or night sweats, denies any change in the bowel movements or urination. Physical Examination: -Constitutional: Cooperative. Not in acute distress . - Neurologic: Cranial nerve II to XII intact. No focal neurological deficits. - Psychatric: Alert & oriented x 3. Matching mood & appropriate affect. Judgment and insight intact. - Musculoskeletal: Cervical spine: Muscle bulk/ tone/ strength in the bilateral upper extremities normal Vertebral body tenderness to palpation over Spurling test positive Distraction test positive Facet loading test positive Thoracic spine Muscle bulk / tone/ strength in the bilateral paraspinal muscles normal Vertebral body tender to palpation over Facet loading test positive Lumbar spine: Motor bulk/ tone/ strength lower extremities , thigh and legs : 5/5 Deep tendon reflexes : Normal Knee Jerk. Normal Ankle Jerk . Vertebral body tenderness to palpation over L5 Lumbar Facet Loading Test positive Straight Leg Raise: positive at 30 degrees right side/ left side Gaenslen's Test positive Sacral spine : Severe tenderness over the Sacroiliac joint: right side / left side Range of motion: Flexion of the lumbar spine <60 degrees Range of motion: Extension of the lumbar spine <20 degrees Gaenslen's Test positive Ladi test: positive right side / left side Thigh Thrust Test Sacral Thrust Test Imaging: MRI without contrast of the lumbar spine from 11/12/19 reviewed Assessment and plan: Chronic back pain secondary to lumbar DDD, spondylosis with facet arthropathy without myelopathy Recommendation of TIFF L5-S1. May need a series of injections, up to 3 within a 6 mo periods, for optimal pain relief. Risks, benefits of procedure discussed and pt verbalized understanding. Denies anticoagulant use or medical history of diabetes. All patient questions answered I have spent less than 30 minutes on patient care today. Dr Cheng was available by phone for the evaluation of this patient. The time was used to review the medical records including relevant urine studies and Prescription history (MAPs), review of the available imaging, evaluation and examination of the patient, coordination of care with the medical staff and if applicable referring physicians, as well as creation of the medical record - Pain Location Bilateral Lower Back Non-Pharmacological Interventions: Inactivity, Position/Reposition Pharmacological Interventions: Scheduled Medication PQRS Narrative: Smoking Status Current every day smoker Hx Alcohol Use (MH) Yes: A beer a day. Home Medications: Ambulatory Orders Atorvastatin [Lipitor] 80 mg PO HS 03/25/17 FLUoxetine HCL [PROzac] 80 mg PO BID 03/25/17 Hydrocodone/Acetaminophen [[place] 10-325] 1 tab PO QID 03/25/17 Ibuprofen [Motrin] 800 mg PO TID PRN 03/16/19 Albuterol Sulfate [Proair Hfa] 2 puff INHALATION RT-QID PRN 04/28/20 Cholecalciferol [Vitamin D3 (25 Mcg = 1000 Iu)] 50 mcg PO DAILY 04/28/20 Ipratropium-Albuterol Nebulize [Duoneb 0.5 mg-3 mg/3 ml Soln] 3 ml INHALATION RT-Q4H PRN 04/28/20 Lidocaine 2% Gel [Xylocaine Jelly 2%] 1 applic TOPICAL DAILY PRN 04/28/20 lisinopriL [Zestril] 25 mg PO DAILY 07/20/21 Fish Oil/Dha/Epa [Fish Oil 1,200 mg Fish Oil] 1,200 mg PO DAILY 01/26/22 Tiotropium 18 Mcg/Puff [Spiriva] 1 puff INHALATION BID 01/26/22 ALPRAZolam [Xanax] 0.25 mg PO BID PRN 02/19/22 Controlled Substance Measures - Controlled Substance Measures Is patient prescribed a controlled substance at discharge?: No
== END ==
LOC: PNWHC3 08:49
PROVIDERS: ATTEND Specialist
DX: M47.816 Spondylosis without myelopathy or radiculopathy, lumbar region (principal); M51.36 Other intervertebral disc degeneration, lumbar region; F17.200 Nicotine dependence, unspecified, uncomplicated; Z88.1 Allergy status to other antibiotic agents; Z91.040 Latex allergy status; Z88.8 Allergy status to other drugs, medicaments and biological substances; Z88.6 Allergy status to analgesic agent
CPT/HCPCS: 99211

== ENCOUNTER → 2022-03-13 | Outpatient (CLI) | payer OTHER ==
--- NOTE | 2022-03-13 11:23 | US ---
EXAMINATION TYPE: US abdomen limited DATE OF EXAM: 03/13/2022 COMPARISON: None CLINICAL HISTORY: 61-year-old female Limited; B1920 UNSPECIFIED VIRAL HEPATITIS C WITHO. Patient stat es doctor feels she has hep C. TECHNIQUE: Multiple sonographic images of the right upper quadrant are obtained. FINDINGS: EXAM MEASUREMENTS: Liver Length: 18.3 cm Gallbladder Wall: 0.1 cm CBD: 0.3 cm Right Kidney: 9.3 x 5.2 x 4.1 cm Pancreas: Tail obscured by overlying bowel gas Liver: Enlarged in size. No focal lesion seen. Overall homogeneous appearance. Gallbladder: Distended without hodan hydrops, wall thickening, shadowing calculi, or surrounding flu id. Evidence for sonographic Cannon's sign: neg CBD: wnl Right Kidney: No hydronephrosis or masses seen IMPRESSION: Mild hepatomegaly at 18.3 cm. No sonographic evidence for hepatoma. No gallstones or biliary ductal d ilatation.
== END | disposition home or self-care (01) ==
LOC: RADUSWWP 09:39
PROVIDERS: ATTEND Internal Medicine Gastroenterology
DX: R16.0 Hepatomegaly, not elsewhere classified (principal); B19.20 Unspecified viral hepatitis C without hepatic coma
CPT/HCPCS: 76705

== ENCOUNTER → 2022-04-02 | Outpatient (CLI) | payer OTHER ==
--- NOTE | 2022-04-02 13:49 | XR ---
EXAMINATION TYPE: XR shoulder complete LT DATE OF EXAM: 04/02/2022 COMPARISON: NONE HISTORY: Pain TECHNIQUE: Three views are submitted. FINDINGS: The osseous structures are intact. There is no acute fracture or dislocation. The AC joint is maint ained. IMPRESSION: 1. No acute process.
== END | disposition home or self-care (01) ==
LOC: RADXRYALE 13:34
PROVIDERS: ATTEND Physician Assistant
DX: M25.512 Pain in left shoulder (principal); R51.9 Headache, unspecified

== ENCOUNTER → 2022-05-23 | Outpatient (CLI) | payer OTHER ==
[2022-05-23 08:54] VITALS: BP 114/70; PULSE 90; RESP 18; TEMP 98.4
--- NOTE | 2022-05-23 14:25 | P.PAINPG ---
PQRS Measure Charge Sheet Comment: A 61 yr old female with a history of severe and chronic LBP secondary to lumbar DDD and spondylosis with facet arthropathy without myelopathy presents today for evaluation s/p L paramedian TIFF L5-S1 #1. Pt states she experienced 50 % pain relief x 5 wks s/p procedure. Pain level is provoked at 10 /10 in i ntensity, constant, localized in the R lumbar spine, stabbing, sharp in character w shooting towards the R hip and RLE. Pain is provoked by standing/ sitting for periods of 20 min or more. Pain is alleviated with heat, ice, laying supine. Has not had PT for her lumbar spine in years. Interventional pain procedures completed include TIFF L5-S1 x1 Patient is currently on [place], [place] Patient denies any side effects of the medication(s), denies excessive drowsiness or sleepiness, denies suicidal ideation and reports that the current pain medication is helping to control the pain and improve activities of daily living. Patient denies any motor or sensory deficits. Patient denies any fever or night sweats, denies any change in the bowel movements or urination. Physical Examination: -Constitutional: Cooperative. Not in acute distress . - Neurologic: Cranial nerve II to XII intact. No focal neurological deficits. - Psychatric: Alert & oriented x 3. Matching mood & appropriate affect. Judgment and insight intact. - Musculoskeletal: Cervical spine: Muscle bulk/ tone/ strength in the bilateral upper extremities normal Vertebral body tenderness to palpation over Spurling test positive Distraction test positive Facet loading test positive TTP Thoracic spine Muscle bulk / tone/ strength in the bilateral paraspinal muscles normal Vertebral body tender to palpation over Facet loading test positive TTP Lumbar spine: Motor bulk/ tone/ strength lower extremities , thigh and legs : 5/5 Deep tendon reflexes : Normal Knee Jerk. Normal Ankle Jerk . Vertebral body tenderness to palpation over L5 Lumbar Facet Loading Test positive Straight Leg Raise: positive at 30 degrees right side/ left side Gaenslen's Test positive Sacral spine : Severe tenderness over the Sacroiliac joint: right side / left side Range of motion: Flexion of the lumbar spine <60 degrees Range of motion: Extension of the lumbar spine <20 degrees Gaenslen's Test positive right side / left side Ladi test: positive right side / left side Thigh Thrust Test positive right side / left side Sacral Thrust Test positive right side / left side Assessment and plan: Chronic LBP secondary to lumbar DDD, spondylosis with facet arthropathy without myelopathy Recommendation of R paramedian TIFF L5-S1. May need a series fo injections for optimal pain relief. Risks, benefits of procedure discussed and pt verbalized understanding. Admits to anticoagulant use or medical history of diabetes. Protocol for discontinuation/ continuation of medications cathy procedure discussed. All questions answered. I have spent less than 30 minutes on patient care today. Dr Cheng was available by phone for the evaluation of this patient. The time was used to review the medical records including relevant urine studies and Prescription history (MAPs), review of the available imaging, evaluation and examination of the patient, coordination of care with the medical staff and if applicable referring physicians, as well as creation of the medical record L PQRS Narrative: Smoking Status Current every day smoker Hx Alcohol Use (MH) Yes: A beer a day. Home Medications: Ambulatory Orders FLUoxetine HCL [PROzac] 80 mg PO BID 03/25/17 Hydrocodone/Acetaminophen [[place] 10-325] 1 tab PO QID 03/25/17 Ibuprofen [Motrin] 800 mg PO TID PRN 03/16/19 Albuterol Sulfate [Proair Hfa] 2 puff INHALATION RT-QID PRN 04/28/20 Cholecalciferol [Vitamin D3 (25 Mcg = 1000 Iu)] 50 mcg PO DAILY 04/28/20 Ipratropium-Albuterol Nebulize [Duoneb 0.5 mg-3 mg/3 ml Soln] 3 ml INHALATION RT-Q4H PRN 04/28/20 Lidocaine 2% Gel [Xylocaine Jelly 2%] 1 applic TOPICAL DAILY PRN 04/28/20 lisinopriL [Zestril] 25 mg PO DAILY 07/20/21 Fish Oil/Dha/Epa [Fish Oil 1,200 mg Fish Oil] 1,200 mg PO DAILY 01/26/22 Tiotropium 18 Mcg/Puff [Spiriva] 1 puff INHALATION BID 01/26/22 ALPRAZolam [Xanax] 0.25 mg PO BID PRN 02/19/22 Cyanocobalamin (Vitamin B-12) [Vitamin B-12] 1,000 mcg PO DAILY 04/18/22 Glecaprevir/Pibrentasvir [Mavyret 100-40 mg Tablet] 3 tab PO HS 04/18/22 Controlled Substance Measures - Controlled Substance Measures Is patient prescribed a controlled substance at discharge?: No
== END ==
LOC: PNWHC3 08:20
PROVIDERS: ATTEND Specialist
DX: M51.36 Other intervertebral disc degeneration, lumbar region (principal); M47.816 Spondylosis without myelopathy or radiculopathy, lumbar region; G89.29 Other chronic pain; F17.200 Nicotine dependence, unspecified, uncomplicated; Z88.1 Allergy status to other antibiotic agents; Z88.5 Allergy status to narcotic agent; Z88.6 Allergy status to analgesic agent; Z91.040 Latex allergy status; Z68.23 Body mass index [BMI] 23.0-23.9, adult
CPT/HCPCS: 99211

== ENCOUNTER → 2022-06-18 | Outpatient (CLI) | payer OTHER ==
--- NOTE | 2022-06-18 13:21 | MR ---
EXAMINATION TYPE: MR brain wo/w con DATE OF EXAM: 06/18/2022 12:30 PM COMPARISON: NONE HISTORY: Dizziness and giddiness, tinnitus, pain in back of head. CONTRAST: Patient received 6 mL intravenous Gadavist gadolinium contrast. Multiplanar and multispin-echo imaging of the brain was performed . Pre and post contrast enhanced i mages are obtained. The ventricles, basal cisterns and sulci overlying the cerebral convexities are mildly enlarged. There is evidence of mild periventricular white matter ischemic demyelination. Remote deep white matter insults are also noted. No acute edema is seen on diffusion weighted imaging. There is no evidence for midline shift or mass effect. Acute intracranial hemorrhage or extra-axial collection is not evident. No enhancing lesions are seen. There is evidence of pansinusitis. Also right greater than left chronic mastoiditis. IMPRESSION: Age-related atrophic and chronic small vessel ischemic change. No acute intracranial process at this time. No enhancing lesions are seen.
== END | disposition home or self-care (01) ==
LOC: RADMRIMAIN 11:44
PROVIDERS: ATTEND Physician Assistant
DX: G31.1 Senile degeneration of brain, not elsewhere classified (principal); I67.82 Cerebral ischemia; R42 Dizziness and giddiness; H93.13 Tinnitus, bilateral; R51.9 Headache, unspecified; R04.0 Epistaxis
CPT/HCPCS: 70553; A9585

== ENCOUNTER 2022-06-19 08:22 | Day surgery (SDC) | payer OTHER ==
[2022-06-13 14:48] VITALS: BMI 23.3
[2022-06-19] MEDS ORDERED: LACTATED RINGERS 1,000 ML IV SCH (08:44)
[2022-06-19] MEDS ORDERED: LIDOCAINE 1% (10MG/ML) FOR IV START INTRADERMA PRN (08:44)
[2022-06-19 08:54] VITALS: TEMP 97
[2022-06-19] MEDS ORDERED: fentaNYL (PF) 50 MCG/ML 2 ML AMP ONE (09:32)
[2022-06-19] MEDS ORDERED: IOPAMIDOL M200 10 ML VIAL ONE (09:32)
[2022-06-19] MEDS ORDERED: MIDAZOLAM 2 MG/2 ML VIAL ONE (09:32)
[2022-06-19] MEDS ORDERED: methylPREDNISolone ACETATE 80 MG/ML 1 ML VIAL ONE (09:32)
--- NOTE | 2022-06-19 09:40 | P.PCN ---
Date of Procedure: 06/19/22 Procedure(s) Performed: PREOPERATIVE DIAGNOSIS: 1- Lumbar Degenerative Disc Diseases 2-Lumbar spondylosis with Facet arthropathy without myelopathy. 3-lumbar radiculopathy POSTOPERATIVE DIAGNOSIS: 1-lumbar degenerative disc disease. 2-lumbar spondylosis with facet arthropathy without myelopathy. 3-lumbar radiculopathy PROCEDURE 1. Lumbar epidural steroid injection under fluoroscopic guidance at the L5-S1 level. (Fluoroscopy imaging was available in radiology department) 2. Lumbar epidurogram. ANESTHESIA: moderate sedation with intravenous Versed 2 mg ,and fentanyle 50 Mcg Sedation start time : 934 Sedation end time : 937 EBL: Minimal PROCEDURE INDICATION: The patient with low back pain and radiculitis symptoms unresponsive to conservative treatment. Fluoroscopy was used to optimize visualization of the needle placement and to maximize safety. PROCEDURE DESCRIPTION / TECHNIQUE: The patient was seen and identified in the preoperative area. Risks, benefits, complications including but not limited to infections ,bleeding ,allergic reaction to the medications ,nerve damage and not complete pain releife , and alternatives were discussed with the patient. The patient agreed to proceed with the procedure and signed the consent. IV was started, and vital signs were stable. Patient was taken to the OR and time out was completed. The patient was placed in the prone position on procedure table and a pillow was placed under the abdomen to reduce lumbar lordosis. The lumbosacral area was prepped and draped in the usual sterile fashion.ere closely monitored during the procedure. Consci ous sedation was used during the procedure to decrease patients anxiety. Vital signs was monitered during the entire procedure. Using anterior-posterior fluoroscopy, the L5-S1 interlaminar space was identified and the skin over this site was marked and then infiltrated with 1% lidocaine subcutaneously. Subsequently, a 20-gauge Tuohy epidural needle was inserted ( right paramedial ) and advanced toward the epidural space using the ``Loss of resistance technique and guided by AP and lateral fluoroscopy. The correct needle position in the epidural space was verified with the injection of 2 mL of the water soluble contrast dye Isovue 200 contrast and observing an excellent epidurogram with the epidural spread of the dye, after negative aspiration for blood and CSF and in the absence of paresthesias. Again after negative aspiration, a 6 ml mixture containing 80 mg of Depo-medrol ( Preservetive Free ), and 2 ml of preservative free Normal Saline, and 2 ml of preservative free lidocaine 1% solution was injected and a washout of epidurogram was seen. Needle was withdrawn intact, skin was cleansed, and bandages were applied. COMPLICATIONS: None DISPOSITION / PLANS: The patient was placed in a supine position and transferred to the recovery area in a stable condition for observation. There was no evidence of lower extremity motor or sensory deficit after the procedure. Patient was discharged from the recovery room after meeting discharge criteria. Home discharge instructions were given to the patient by the staff. The patient was reexamined prior to discharge. The patient will schedule a follow up in the clinic in 2-4 weeks.
[2022-06-19] MEDS ORDERED: IV FLUID CONTINUATION 600 ML IV ONE (09:43)
[2022-06-19 09:47] VITALS: RESP 18
[2022-06-19 09:58] VITALS: BP 133/84; PULSE 81
--- NOTE | 2022-06-19 11:04 | FL ---
EXAMINATION TYPE: FL guided pain mgmt statistic DATE OF EXAM: 06/19/2022 CLINICAL HISTORY: Low back pain. TECHNIQUE: Fluoroscopy. COMPARISON: None. FINDINGS: Fluoroscopic guidance was provided during pain relief procedure performed by Dr. Cheng . A total of 1.0 seconds of fluoroscopic time was utilized during the procedure and 1 spot images ar e acquired. Single image acquired shows needle localization at L4-L5 level with contrast injection. IMPRESSION: As Above. TOTAL DAP = 0.25777 mGy x m2
== END 2022-06-19 10:08 | disposition home or self-care (01) ==
LOC: ORPAIN 08:22
PROVIDERS: ATTEND Specialist
DX: M51.16 Intervertebral disc disorders with radiculopathy, lumbar region (principal); M47.26 Other spondylosis with radiculopathy, lumbar region; Z91.040 Latex allergy status; Z88.6 Allergy status to analgesic agent; Z88.8 Allergy status to other drugs, medicaments and biological substances; Z88.1 Allergy status to other antibiotic agents
CPT/HCPCS: 62323; J2250; J1040; J3010; Q9966

== ENCOUNTER → 2022-07-11 | Outpatient (CLI) | payer OTHER ==
[2022-07-11 09:42] VITALS: BP 131/81; PULSE 94; RESP 18; TEMP 98.8
--- NOTE | 2022-07-11 14:30 | P.PAINPG ---
PQRS Measure Charge Sheet Comment: A 61 yr old female with a history of severe and chronic LBP secondary to lumbar DDD and spondylosis with facet arthropathy without myelopathy presents today for evaluation s/p TIFF L5-S1. Pt states she experienced 0 % pain relief x 3 wks s/p procedure. Pain level is provoked at 7/10 in intensity, constant, localized in the lumbar spine, stabbing in character w shooting towards the BLEs, L>R. Pain is provoked by standing/ walking for periods of 15 min or more. Pain is alleviated with medications, injections, ice, heat, PT in 2020 which was discontinued as she could not perform exercises, massages were too painful, repositioning and rest. She also admits to R knee pain, 7/10 in intensity, dull & achy, without radiation of pain. She admits she fell twice getting out of her vehicle due to her R knee instability due to pain Interventional pain procedures completed include TIFF L5-S1, C5-6, Cervical TPIs Patient is currently on [place] fr Dr Nina Patient denies any side effects of the medication(s), denies excessive drowsiness or sleepiness, denies suicidal ideation and reports that the current pain medication is helping to control the pain and improve activities of daily living. Patient denies any motor or sensory deficits. Patient denies any fever or night sweats, denies any change in the bowel movements or urination. Physical Examination: -Constitutional: Cooperative. Not in acute distress . - Neurologic: Cranial nerve II to XII intact. No focal neurological deficits. - Psychatric: Alert & oriented x 3. Matching mood & appropriate affect. Judgment and insight intact. - Musculoskeletal: Cervical spine: Muscle bulk/ tone/ strength in the bilateral upper extremities normal Vertebral body tenderness to palpation over Spurling test positive Distraction test positive Facet loading test positive TTP Thoracic spine Muscle bulk / tone/ strength in the bilateral paraspinal muscles normal Vertebral body tender to palpation over Facet loading test positive TTP Lumbar spine: Motor bulk/ tone/ strength lower extremities , thigh and legs : 5/5 Deep tendon reflexes : Normal Knee Jerk. Normal Ankle Jerk . Vertebral body tenderness to palpation over Lumbar Facet Loading Test positive over BL L4-L5, L5-S1 facets Straight Leg Raise: positive at 30 degrees right side/ left side Gaenslen's Test positive Sacral spine : R medial joint line TTP, R no edema, no erythema Severe tenderness over the Sacroiliac joint: right side / left side Range of motion: Flexion of the lumbar spine <60 degrees Range of motion: Extension of the lumbar spine <20 degrees Gaenslen's Test positive right side / left side Ladi test: positive right side / left side Thigh Thrust Test positive right side / left side Sacral Thrust Test positive right side / left side Assessment and plan: Chronic LBP secondary to lumbar DDD, spondylosis with facet arthropathy without myelopathy Recommendation of BL facet block of the medial branches L4-L5, L5-S1 #1. May need a series fo injections, up until RFA, for optimal pain relief. Risks, benefits of procedure discussed and pt verbalized understanding. Admits to anticoagulant use or medical history of diabetes. Protocol for discontinuation/ continuation of medications cathy procedure discussed. Script for R knee brace w side stabilizers Dx: M17.11, M 76.51.0All questions answered. I have spent less than 30 minutes on patient care today. Dr Cheng was available by phone for the evaluation of this patient. The time was used to review the medical records including relevant urine studies and Prescription history (MAPs), review of the available imaging, evaluation and examination of the patient, coordination of care with the medical staff and if applicable referring physicians, as well as creation of the medical record PQRS Narrative: Smoking Status Current every day smoker Hx Alcohol Use (MH) Yes: A beer a day. Home Medications: Ambulatory Orders FLUoxetine HCL [PROzac] 80 mg PO BID 03/25/17 Hydrocodone/Acetaminophen [[place] 10-325] 1 tab PO QID 03/25/17 Ibuprofen [Motrin] 800 mg PO TID PRN 03/16/19 Albuterol Sulfate [Proair Hfa] 2 puff INHALATION RT-QID PRN 04/28/20 Cholecalciferol [Vitamin D3 (25 Mcg = 1000 Iu)] 50 mcg PO DAILY 04/28/20 Ipratropium-Albuterol Nebulize [Duoneb 0.5 mg-3 mg/3 ml Soln] 3 ml INHALATION RT-Q4H PRN 04/28/20 Lidocaine 2% Gel [Xylocaine Jelly 2%] 1 applic TOPICAL DAILY PRN 04/28/20 lisinopriL [Zestril] 25 mg PO DAILY 07/20/21 Fish Oil/Dha/Epa [Fish Oil 1,200 mg Fish Oil] 1,200 mg PO DAILY 01/26/22 Tiotropium 18 Mcg/Puff [Spiriva] 1 puff INHALATION BID 01/26/22 ALPRAZolam [Xanax] 0.25 mg PO BID PRN 02/19/22 Cyanocobalamin (Vitamin B-12) [Vitamin B-12] 1,000 mcg PO DAILY 04/18/22 Controlled Substance Measures - Controlled Substance Measures Is patient prescribed a controlled substance at discharge?: No
== END ==
LOC: PNWHC3 08:34
PROVIDERS: ATTEND Specialist
DX: M51.36 Other intervertebral disc degeneration, lumbar region (principal); M47.816 Spondylosis without myelopathy or radiculopathy, lumbar region; F17.210 Nicotine dependence, cigarettes, uncomplicated; Z91.040 Latex allergy status; Z88.1 Allergy status to other antibiotic agents; Z88.6 Allergy status to analgesic agent; Z88.8 Allergy status to other drugs, medicaments and biological substances
CPT/HCPCS: 99211

== ENCOUNTER → 2022-08-22 | Outpatient (CLI) | payer OTHER ==
--- NOTE | 2022-08-23 09:14 | MM ---
Reason for Exam: Screening (asymptomatic). Last mammogram was performed 2 year(s) and 1 month(s) ago. Patient History: Menarche at age 13. First Full-Term at age 23. Hysterectomy at age 53. 2014, Benign Excisional Biopsy on the right side. Risk Values: Radha 5 year model risk: 1.6%. NCI Lifetime model risk: 7.3%. Prior Study Comparison: 07/17/2016 Screening Mammogram, [facility]. 07/23/2017 Bilateral Screening Mammogram, [facility]. 07/20/2020 Bilateral Diagnostic Mammogram, [facility]. Tissue Density: There are scattered fibroglandular densities. Findings: Analyzed By CAD. There is no suspicious group of microcalcifications or new suspicious mass in either breast. Overall Assessment: Benign, BI-RAD 2 Management: Screening Mammogram of both breasts in 1 year. . Patient should continue monthly self-breast exams. A clinical breast exam by your physician is recommended on an annual basis. This exam should not preclude additional follow-up of suspicious palpable abnormalities. Note on Radha scores and lifetime risk: 1. A Radha score greater than 3% is considered moderate risk. If this is the case, consider specialist referral to assess eligibility for a risk reducing agent. 2. If overall lifetime risk for the development of breast cancer is 20% or higher, the patient may qualify for future screening with alternating mammogram and breast MRI. Electronically signed and approved by: Jamal Hurt M.D. Radiologis
== END | disposition home or self-care (01) ==
LOC: RADMAMWWP 10:56
PROVIDERS: ATTEND Family Medicine
DX: Z12.31 Encounter for screening mammogram for malignant neoplasm of breast (principal)
CPT/HCPCS: 77063; 77067

== ENCOUNTER → 2022-09-11 | Outpatient (CLI) | payer OTHER ==
--- NOTE | 2022-09-12 22:46 | CTL ---
EXAMINATION TYPE: CT Low Dose Lung DATE OF EXAM ORDERED: 09/11/2022 HISTORY: 62-year-old female Z87.891, personal history of tobacco use, current smoker with 50 pack-yea r history. Lung cancer screening CT DLP: 73.[address] CTDI: 2.2 mGy Automated exposure control for dose reduction was used. SCREENING VISIT: Annual follow-up COMPARISON: 07/19/2021 TECHNIQUE: Low dose computed tomography scan was performed through the chest with coronal and sagitta l reconstructions. CT DIAGNOSTIC QUALITY: Satisfactory FINDINGS: The heart is normal size without pericardial effusion. LAD and circumflex coronary artery calcificati ons are present. Aorta normal caliber with mild atherosclerotic arch calcifications and dimensional arch vessel branch ing anatomy. No thoracic lymphadenopathy by CT size criteria. There is moderate centrilobular emphysema and mild diffuse bronchial wall thickening. 5 mm right mid lung pulmonary nodule axial image 151 is unchanged. No new suspicious pulmonary nodule s are seen. Some strandy atelectasis or scarring redemonstrated at the lung bases. No consolidation or pleural effusion. There is a small hiatal hernia redemonstrated. Otherwise, the visualized upper abdomen shows no gross abnormality. No osseous destructive process. IMPRESSION: 1. Lung rads 2, benign. A stable 5 mm right mid lung pulmonary nodule. 2. COPD with moderate emphysema. Recommend smoking cessation. 3. Tiny hiatal hernia. CT LUNG RAD AND CT CHEST RECOMMENDATION: Lung-Rad 2 Benign Appearance or Behavior: Continue annual sc reening with LDCT in 12 months. S Modifier (other clinically significant findings): None
== END | disposition home or self-care (01) ==
LOC: RADCTMAIN 13:33
PROVIDERS: ATTEND Family Medicine
DX: Z12.2 Encounter for screening for malignant neoplasm of respiratory organs (principal); F17.210 Nicotine dependence, cigarettes, uncomplicated; J43.2 Centrilobular emphysema; K44.9 Diaphragmatic hernia without obstruction or gangrene; R91.1 Solitary pulmonary nodule
CPT/HCPCS: 71271

== ENCOUNTER 2023-01-11 07:14 | Day surgery (SDC) | payer OTHER ==
[2023-01-10 08:54] VITALS: BMI 22.8
[2023-01-11] MEDS ORDERED: LACTATED RINGERS 1,000 ML IV ONE (07:29)
[2023-01-11 07:35] VITALS: TEMP 97.8
[2023-01-11] MEDS ORDERED: LACTATED RINGERS 1,000 ML IV SCH (07:45)
[2023-01-11] MEDS ORDERED: ROPIVACAINE 5MG/ML 20ML VIAL ONE (07:48)
[2023-01-11] MEDS ORDERED: MIDAZOLAM 2 MG/2 ML VIAL ONE (07:48)
[2023-01-11] MEDS ORDERED: IV FLUID CONTINUATION 1,000 ML IV ONE (08:14)
[2023-01-11 08:24] VITALS: RESP 16
[2023-01-11 08:48] VITALS: BP 135/84; PULSE 70
--- NOTE | 2023-01-11 09:09 | FL ---
EXAMINATION TYPE: FL guided pain mgmt statistic DATE OF EXAM: 01/11/2023 HISTORY: Fluoroscopy time Total dose area product (DAP) in uGy*m?, mGy*cm? (or similar): 0.26383 IMPRESSION: 1. Fluoroscopy time.
--- NOTE | 2023-01-11 11:14 | P.PCN ---
Date of Procedure: 01/11/23 Description of Procedure: PREOPERATIVE DIAGNOSIS : 1- Lumbar spondylosis with Facet Arthropathy without myelopathy . 2- Lumber degenerative disc disease POSTOPERATIVE DIAGNOSIS: 1- Lumbar spondylosis with Facet Arthropathy without myelopathy . 2- Lumber degenerative disc disease PROCEDURE: Diagnostic bilateral L3 , L4 , and L5 medial branch block under fluoroscopy guidance(fluoroscopy images available in the radiology Department ) ( To target the facet joint between Bilateral L4-5 , and L5-S1 ) ANESTHESIA:, Monitored anesthesia care as per anesthesia department. COMPLICATION: None PROCEDURE INDICATION: Chronic low back pain secondary to Facet arthropathy unresponsive to conservative treatment. PROCEDURE DESCRIPTION: the patient was seen and identified in the preop holding area , risks and benefits and possible complications of the procedure and alternative were discussed with the patient, and the patient agreed to proceed with the procedure and signed the consent and vital signs monitored durin g the procedure and fluoroscopy was used to maximize the benefit and accuracy of the needle placement, and sedation was given to decrease patient anxiety, patient was taken to the procedure room and placed in prone position vital signs monitored in the back prepped with chlorhexidine X3 then under strict sterile technique using a right oblique fluoroscopy ,the junction of the transverse process and the superior articulating process of the rightL4 , and L5 vertebra which corresponding to the fluoroscopy image of the eye of the Al dog on the block side for the medial branches and at the junction of the superior articular process with right ala of the sacrum. subsequently , after local infiltration of skin and subcu tissuies 22-gauge Quincke-type needles , 3 needle was used , each one of them placed at the junction of the base of the transverse process and the superior articular process at the appropriate level, and the needle was advanced until the periosteum contacted, needle placement confirmed with AP oblique and lateral view and after appropriate needle placement confirmed, and after negative aspiration for heme and CSF and there was no paresthesia 0.5 mL of Ropivacaine 0.5% injected at each level after negative aspiration the needle subsequently removed and the same procedure repeated for the left side at left side at L4 ,L5,S1 vertebral levels. At the end of the procedure and the needles removed and a bandage applied after the skin was cleaned the cleaning solution patient taken to recovery room in stable condition and monitors in the recovery room for 20-30 minutes and discharged home in stable condition after discharge criteria met and patient will follow up with the pain clinic in 2-4 weeks
== END 2023-01-11 08:40 | disposition home or self-care (01) ==
LOC: ORPAIN 07:14
PROVIDERS: ATTEND Pain Medicine Interventional Pain Medicine
DX: M51.36 Other intervertebral disc degeneration, lumbar region (principal); M47.816 Spondylosis without myelopathy or radiculopathy, lumbar region; I10 Essential (primary) hypertension; G89.29 Other chronic pain; E78.5 Hyperlipidemia, unspecified; J44.9 Chronic obstructive pulmonary disease, unspecified; F17.200 Nicotine dependence, unspecified, uncomplicated; E11.9 Type 2 diabetes mellitus without complications; Z79.51 Long term (current) use of inhaled steroids; Z79.891 Long term (current) use of opiate analgesic; Z79.2 Long term (current) use of antibiotics; Z79.899 Other long term (current) drug therapy; Z91.040 Latex allergy status; Z88.5 Allergy status to narcotic agent; Z88.6 Allergy status to analgesic agent; Z91.018 Allergy to other foods
CPT/HCPCS: 64493; 64494 ×2; J2250; J2001; J2795

== ENCOUNTER → 2023-01-23 | Outpatient (CLI) | payer OTHER ==
[2023-01-23 14:15] VITALS: BP 138/72; PULSE 84; RESP 15; TEMP 98.6
--- NOTE | 2023-01-23 15:06 | P.PAINPG ---
PQRS Measure Charge Sheet Comment: A 61 yr old female with a history of severe and chronic LBP secondary to lumbar DDD and spondylosis with facet arthropathy without myelopathy presents today for evaluation s/p BL MBB L4-L5, L5-S1 #2. Pt states she experienced % pain relief x wks s/p procedure. Pain level is provoked at 7/10 in intensity, constant, localized in the lumbar spine, predominantly axial, stabbing in character w occasional shooting towards the BLEs, L>R. Pain is provoked by standing/ walking for periods of 15 min or more. Pain is alleviated with medications, injections, ice, heat, PT in 2020 which was discontinued as she could not perform exercises due to bad knees, massages were too painful, repositioning and rest. After having PT in 2020, she has been performing physician guided home stretches 3-4 times weekly ever since. Oswestry axial pain score of 38. Interventional pain procedures completed include TIFF L5-S1, C5-6, Cervical TPIs, BL MBB L3-L5 x2 Patient is currently on [place] fr Dr Nina Patient denies any side effects of the medication(s), denies excessive drowsiness or sleepiness, denies suicidal ideation and reports that the current pain medication is helping to control the pain and improve activities of daily living. Patient denies any motor or sensory deficits. Patient denies any fever or night sweats, denies any change in the bowel movements or urination. Physical Examination: -Constitutional: Cooperative. Not in acute distress . - Neurologic: Cranial nerve II to XII intact. No focal neurological deficits. - Psychatric: Alert & oriented x 3. Matching mood & appropriate affect. Judgment and insight intact. - Musculoskeletal: Cervical spine: Muscle bulk/ tone/ strength in the bilateral upper extremities normal Vertebral body tenderness to palpation over Spurling test positive Distraction test positive Facet loading test positive TTP Thoracic spine Muscle bulk / tone/ strength in the bilateral paraspinal muscles normal Vertebral body tender to palpation over Facet loading test positive TTP Lumbar spine: Motor bulk/ tone/ strength lower extremities , thigh and legs : 5/5 Deep tendon reflexes : Normal Knee Jerk. Normal Ankle Jerk . Vertebral body tenderness to palpation over Lumbar Facet Loading Test positive over BL L4-L5, L5-S1 facets Straight Leg Raise: positive at 30 degrees right side/ left side Gaenslen's Test positive Sacral spine : R medial joint line TTP, R no edema, no erythema Severe tenderness over the Sacroiliac joint: right side / left side Range of motion: Flexion of the lumbar spine <60 degrees Range of motion: Extension of the lumbar spine <20 degrees Gaenslen's Test positive right side / left side Ladi test: positive right side / left side Thigh Thrust Test positive right side / left side Sacral Thrust Test positive right side / left side Assessment and plan: Chronic LBP secondary to lumbar DDD, spondylosis with facet arthropathy without myelopathy Recommendation of medication management. Script for [place] 10/325mg #90 . Pt wanted >4 per day and refused non narcotic medications to potentiate the effects of Hydrocodone. Pt acknowledged understanding. Narcotics/ opiate agreement signed 12/03/22. All questions answered. I have spent less than 30 minutes on patient care today. Dr Cheng was available by phone for the evaluation of this patient. The time was used to review the medical records including relevant urine studies and Prescription history (MAPs), review of the available imaging, evaluation and examination of the patient, coordination of care with the medical staff and if applicable referring physicians, as well as creation of the medical record - Pain Location Bilateral Lower Back Pharmacological Interventions: Epidural, Scheduled Medication PQRS Narrative: Smoking Status Current every day smoker Narcotic Agreement Date Signed 12/03/22 Hx Alcohol Use (MH) Yes: A beer a day. Home Medications: Ambulatory Orders FLUoxetine HCL [PROzac] 20 mg PO BID 03/25/17 Cholecalciferol [Vitamin D3 (25 Mcg = 1000 Iu)] 50 mcg PO QAM 04/28/20 Ipratropium-Albuterol Nebulize [Duoneb 0.5 mg-3 mg/3 ml Soln] 3 ml INHALATION RT-Q4H PRN 04/28/20 Lidocaine 2% Gel [Xylocaine Jelly 2%] 1 applic TOPICAL DAILY PRN 04/28/20 lisinopriL [Zestril] 25 mg PO QAM 07/20/21 Fish Oil/Dha/Epa [Fish Oil 1,200 mg Fish Oil] 1,200 mg PO QAM 01/26/22 Tiotropium 18 Mcg/Puff [Spiriva] 1 puff INHALATION BID 01/26/22 Cyanocobalamin (Vitamin B-12) [Vitamin B-12] 2,500 mcg PO QAM 04/18/22 Atorvastatin [Lipitor] 80 mg PO HS 08/23/22 Baclofen 5 mg PO TID 09/14/22 ALPRAZolam [Xanax] 0.5 mg PO BID PRN 01/10/23 Montelukast [Singulair] 10 mg PO QAM 01/10/23 Trelegy (Unknown Dose) 1 puff INHALATION DIRECTED PRN 01/10/23 Hydrocodone/Acetaminophen [Hydrocodone/Acetaminophen 10-300 mg] 1 tab PO TID PRN 30 Days #90 tab 01/23/23 Controlled Substance Measures - Controlled Substance Measures Is patient prescribed a controlled substance at discharge?: Yes When asked, does pt state using other controlled substances?: Yes If prescribed controlled substance>3 days was MAPS reviewed?: Yes
== END ==
LOC: PNWHC3 13:30
PROVIDERS: ATTEND Specialist
DX: M51.37 Other intervertebral disc degeneration, lumbosacral region (principal); M47.817 Spondylosis without myelopathy or radiculopathy, lumbosacral region; G89.29 Other chronic pain; F17.200 Nicotine dependence, unspecified, uncomplicated; Z88.8 Allergy status to other drugs, medicaments and biological substances; Z91.040 Latex allergy status; Z88.6 Allergy status to analgesic agent
CPT/HCPCS: 80307; G0463; 99212

== ENCOUNTER 2023-05-13 15:20 | Emergency (ER) | payer OTHER ==
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
[2023-05-13 15:49] VITALS: TEMP 98.8
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
[2023-05-13] MEDS: HYDROmorphone 0.5 MG/0.5 ML SYRINGE IM STA (16:58)
[2023-05-13 17:54] VITALS: BP 111/71; PULSE 77; RESP 12
== END 2023-05-13 17:30 | disposition home or self-care (01) ==
LOC: EC 15:20
DX: S16.1XXA Strain of muscle, fascia and tendon at neck level, initial encounter (principal); E11.9 Type 2 diabetes mellitus without complications; I10 Essential (primary) hypertension; J44.89 Other specified chronic obstructive pulmonary disease; E78.5 Hyperlipidemia, unspecified; G40.909 Epilepsy, unspecified, not intractable, without status epilepticus; K21.9 Gastro-esophageal reflux disease without esophagitis; F32.A Depression, unspecified; F41.9 Anxiety disorder, unspecified; F17.200 Nicotine dependence, unspecified, uncomplicated; Z79.899 Other long term (current) drug therapy; Z98.41 Cataract extraction status, right eye; Z98.42 Cataract extraction status, left eye; Z88.6 Allergy status to analgesic agent; Z88.8 Allergy status to other drugs, medicaments and biological substances; Z88.1 Allergy status to other antibiotic agents; Z91.040 Latex allergy status; V43.62XA Car passenger injured in collision with other type car in traffic accident, initial encounter; Y92.410 Unspecified street and highway as the place of occurrence of the external cause
CPT/HCPCS: 73030; 72125; 70450; 99285; 96372; J1170

== ENCOUNTER 2023-05-15 15:35 | Emergency (ER) | payer OTHER ==
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
[2023-05-15] MEDS: ORPHENADRINE 30 MG/ML 2 ML VIAL IM STA (17:23)
[2023-05-15] MEDS: HYDROcodone/APAP 7.5-325MG 1 EACH TAB PO ONE (17:24)
[2023-05-15 17:55] VITALS: BP 111/71; PULSE 91; RESP 18; TEMP 98.1
== END 2023-05-15 17:52 | disposition home or self-care (01) ==
LOC: EC 15:35
DX: S40.011A Contusion of right shoulder, initial encounter (principal); E11.9 Type 2 diabetes mellitus without complications; E78.5 Hyperlipidemia, unspecified; J44.89 Other specified chronic obstructive pulmonary disease; I10 Essential (primary) hypertension; F41.9 Anxiety disorder, unspecified; F32.A Depression, unspecified; Z79.899 Other long term (current) drug therapy; Z88.8 Allergy status to other drugs, medicaments and biological substances; Z91.040 Latex allergy status; Z88.1 Allergy status to other antibiotic agents; V89.2XXA Person injured in unspecified motor-vehicle accident, traffic, initial encounter; Y92.410 Unspecified street and highway as the place of occurrence of the external cause
CPT/HCPCS: 72125; 70450; 99284; 96372; 99406; J2360

== ENCOUNTER 2023-09-12 11:15 | Emergency (ER) | payer OTHER ==
[2023-09-12 11:22] VITALS: RESP 16
[2023-09-12] MEDS: ACETAMINOPHEN TAB 325 MG TAB PO STA (12:09)
--- NOTE | 2023-09-12 12:31 | ED ---
Upper Extremity HPI - General Chief Complaint: Extremity Injury, Upper Stated Complaint: fall L arm Time Seen by Provider: 09/12/23 12:30 Source: patient, RN notes reviewed Mode of arrival: ambulatory Limitations: no limitations - History of Present Illness Initial Comments: 63-year-old female presented to the ER with a chief complaint of a fall. Dorcasdannie nt states she was walking her dog on Saturday and accidentally tripped on her flip-flop. She states she landed on her left arm. She states since then she has been experiencing left shoulder, elbow and hand pain. She denies any head injury or loss of consciousness. She states she has been taking prescribed Kodak with minor relief. She states that extremely painful and difficult to make a fist with her left hand due to the pain. She denies any other injuries or complaints. - Related Data Home Medications Medication Instructions Recorded Confirmed FLUoxetine HCL [PROzac] 20 mg PO BID 03/25/17 01/10/23 Cholecalciferol [Vitamin D3 (25 50 mcg PO QAM 04/28/20 01/10/23 Mcg = 1000 Iu)] Ipratropium-Albuterol Nebulize 3 ml INHALATION RT-Q4H PRN 04/28/20 01/10/23 [Duoneb 0.5 mg-3 mg/3 ml Soln] Lidocaine 2% Gel [Xylocaine Jelly 1 applic TOPICAL DAILY PRN 04/28/20 01/10/23 2%] lisinopriL [Zestril] 25 mg PO QAM 07/20/21 01/10/23 Fish Oil/Dha/Epa [Fish Oil 1,200 1,200 mg PO QAM 01/26/22 01/10/23 mg Fish Oil] Tiotropium 18 Mcg/Puff [Spiriva] 1 puff INHALATION BID 01/26/22 01/10/23 Cyanocobalamin (Vitamin B-12) 2,500 mcg PO QAM 04/18/22 01/10/23 [Vitamin B-12] Atorvastatin [Lipitor] 80 mg PO HS 08/23/22 01/10/23 Baclofen 5 mg PO TID 09/14/22 01/10/23 ALPRAZolam [Xanax] 0.5 mg PO BID PRN 01/10/23 01/10/23 Montelukast [Singulair] 10 mg PO QAM 01/10/23 01/10/23 Trelegy (Unknown Dose) 1 puff INHALATION DIRECTED PRN 01/10/23 01/10/23 Previous Rx's Medication Instructions Recorded Celecoxib [CeleBREX] 200 mg PO BID 30 Days #60 cap 02/20/23 Cyclobenzaprine [Flexeril] 10 mg PO TID PRN #15 tab 05/15/23 Allergies Allergy/AdvReac Type Severity Reaction Status Date / Time naproxen [From Naprosyn] Allergy Mild Nausea & Verified 09/12/23 11:20 Vomiting Latex, Natural Rubber Allergy Rash/Hives Verified 09/12/23 11:20 propoxyphene Allergy Nausea & Verified 09/12/23 11:20 [From Darvocet-N] Vomiting cefuroxime AdvReac Abdominal Verified 09/12/23 11:20 Pain Review of Systems ROS Statement: Those systems with pertinent positive or pertinent negative responses have been documented in the HPI. ROS Other: All systems not noted in ROS Statement are negative. Past Medical History Past Medical History: Asthma, COPD, Diabetes Mellitus, GERD/Reflux, Hyperlipidemia, Hypertension, Liver Disease, Pneumonia, Seizure Disorder Additional Past Medical History / Comment(s): Environmental allergies. Left knee problems. Seizure disorder(epilepsy) since infancy, but no recent seizures. Hx diabetes, no longer considered diabetic since wt loss. Hx Hepatitis C, alcoholic hepatitis. Chronic neck and low back pain. Diverticular disease, hx benign colon polyps, frequent diarrhea. History of Any Multi-Drug Resistant Organisms: None Reported Past Surgical History: Breast Surgery, Orthopedic Surgery Additional Past Surgical History / Comment(s): Left fallopian tube removed and oophorectomy due to tubal /cysts, cysts removed from bilateral breasts, cyst removed from forehead, left knee arthroscopy X2, bilateral cataract surgery with lens implants, colonoscopy/polypectomy, hemorrhoidectomy, PAIN CLINIC PROCEDURES. Past Anesthesia/Blood Transfusion Reactions: No Reported Reaction Past Psychological History: Anxiety, Depression Smoking Status: Current every day smoker Past Alcohol Use History: Daily Past Drug Use History: None Reported - Past Family History Mother Family Medical History: Cancer, COPD Additional Family Medical History / Comment(s): Lung cancer. Father Family Medical History: Liver Disease Additional Family Medical History / Comment(s): Father had liver cirrhosis. He was an alcoholic. Sister(s) Family Medical History: Cancer Additional Family Medical History / Comment(s): Lung cancer. General Exam Limitations: no limitations General appearance: alert, in no apparent distress Head exam: Present: atraumatic, normocephalic, normal inspection Neck exam: Present: normal inspection. Absent: tenderness, meningismus, lymphadenopathy Respiratory exam: Present: normal lung sounds bilaterally. Absent: respiratory distress, wheezes, rales, rhonchi, stridor Cardiovascular Exam: Present: regular rate, normal rhythm, normal heart sounds. Absent: systolic murmur, diastolic murmur, rubs, gallop, clicks Extremities exam: Present: tenderness (Left AC joint, elbow and fourth and fifth metacarpals. 2+ left radial pulse. No edema, bruising or erythema present. No wounds or abrasions.) Neurological exam: Present: alert, oriented X3, CN II-XII intact Skin exam: Present: warm, dry, intact, normal color. Absent: rash Course Vital Signs 09/12/23 09/12/23 11:20 13:18 Temperature 98.8 F 98.3 F Pulse Rate 99 89 Respiratory 16 16 Rate Blood Pressure 130/92 128/79 O2 Sat by Pulse 95 96 Oximetry Procedures - Orthopedic Splinting/Casting Injury #1 Side: left Upper Extremity Injury Location: elbow Upper Extremity Immobilizer: posterior splint Medical Decision Making - Medical Decision Making Was pt. sent in by a medical professional or institution (LUZ Edwards, SENIOR PORTFOLIO MANAGER, urgent ca re, hospital, or fci...) When possible be specific @ -No Did you speak to anyone other than the patient for history (EMS, parent, family, police, friend...)? What history was obtained from this source @ -No Did you review nursing and triage notes (agree or disagree)? Why? @ -I reviewed and agree with nursing and triage notes Were old charts reviewed (outside hosp., previous admission, EMS record, old EKG, old radiological studies, urgent care reports/EKG's, fci records)? Report findings @ -No old charts were reviewed Differential Diagnosis (chest pain, altered mental status, abdominal pain women, abdominal pain men, vaginal bleeding, weakness, fever, dyspnea, syncope, headache, dizziness, GI bleed, back pain, seizure, CVA, palpatations, mental health, musculoskeletal)? @ -Differential Musculoskeletal: Muscular strain, contusion, ligament sprain, fracture, arthritis, septic arthritis, bursitis, cellulitis, muscle spasm, nerve compression, DVT, arterial occlusion, herpes zoster, electrolyte abnormality, tumor.... This is not meant to be in all inclusive list EKG interpreted by me (3pts min.). @ -None X-rays interpreted by me (1pt min.). @ -Left elbow x-ray interpreted by me remarkable for a radial neck fracture with a positive sail sign. Left shoulder and hand x-ray negative for acute process. CT interpreted by me (1pt min.). @ -None done U/S interpreted by me (1pt. min.). @ -None done What testing was considered but not performed or refused? (CT, X-rays, U/S, labs)? Why? @ -None What meds were considered but not given or refused? Why? @ -None Did you discuss the management of the patient with other professionals (professionals i.e. , PA, SENIOR PORTFOLIO MANAGER, lab, RT, psych nurse, social worker delinquency prevention, supervisor network control operators, teacher, mortgage loan officer originator, pillowcase sewer)? Give summary @ -No Was smoking cessation discussed for >3mins.? @ -I discussed smoking cessation for greater than 3 minutes. The risk of smoking were discussed with the patient including but not limited to risks of cancer, stroke, coronary artery disease and COPD. Also discussed with patient were multiple methods of quitting smoking. Lastly we discussed the financial cost of smoking. Was critical care preformed (if so, how long)? @ -No Were there social determinants of health that impacted care today? How? (Homelessness, low income, unemployed, alcoholism, drug addiction, transportation, low edu. Level, literacy, decrease access to med. care, longterm, rehab)? @ -No Was there de-escalation of care discussed even if they declined (Discuss DNR or withdrawal of care, Hospice)? DNR status @ -No What co-morbidities impacted this encounter? (DM, HTN, Smoking, COPD, CAD, Cancer, CVA, ARF, Chemo, Hep., AIDS, mental health diagnosis, sleep apnea, morbid obesity)? @ -Smoker Was patient admitted / discharged? Hospital course, mention meds given and route, prescriptions, significant lab abnormalities, going to OR and other pertinent info. @ -Discharge. 63-year-old female presented to the ER with a chief complaint of left upper extremity injury. History and physical exam completed. Vitals stable. Exam remarkable for tenderness to left elbow. Left upper extremity neurovascular intact. There is mild edema and ecchymosis to left elbow. Patient has full active range of motion with pain. Left upper extremity x-rays completed in the ER remarkable for a left radial neck fracture with positive sail sign fracture. Patient received IM Toradol for pain control in the ER. Patient will be placed in a posterior splint and sling. Patient is prescribed Kodak for chronic pain outpatient. Advise close follow-up with orthopedics, referral given. Strict return parameters discussed. Patient discharged in stable condition. Patient verbally expressed understanding and agreed with care plan. Case discussed with ED attending, Dr. Harmon. Undiagnosed new problem with uncertain prognosis? @ -No Drug Therapy requiring intensive monitoring for toxicity (Heparin, Nitro, Insulin, Cardizem)? @ -No Were any procedures done? @ -Yes, splint Diagnosis/symptom? @ -Radial neck fracture Acute, or Chronic, or Acute on Chronic? @ -Acute Uncomplicated (without systemic symptoms) or Complicated (systemic symptoms)? @ -Uncomplicated Side effects of treatment? @ -No Exacerbation, Progression, or Severe Exacerbation? @ -No Poses a threat to life or bodily function? How? (Chest pain, [place], [place], pneumonia, PE, COPD, DKA, ARF, appy, cholecystitis, CVA, Diverticulitis, Homicidal, Suicidal, threat to staff... and all critical care pts) @ -Low likelihood - Radiology Data Radiology results: report reviewed, image reviewed Disposition Clinical Impression: Radial neck fracture Disposition: HOME SELF-CARE Condition: Stable Instructions (If sedation given, give patient instructions): Elbow Fracture (ED) Additional Instructions: Please follow-up with orthopedics. Keep splint on until seen by orthopedics. Return to the ER for any new or worsening concerns. Is patient prescribed a controlled substance at d/c from ED?: No Referrals: Meek Stark DO [Primary Care Provider] - 1-2 days Reggie Stevenson DO [Doctor of Osteopathic Medicine] - 1-2 days Time of Disposition: 13:13
--- NOTE | 2023-09-12 12:44 | XR ---
EXAMINATION TYPE: XR shoulder complete LT DATE OF EXAM: 09/12/2023 12:34 PM CLINICAL INDICATION:Female, 63 years old with history of pain s/p fall; [facility] COMPARISON: 04/02/2022 TECHNIQUE: XR shoulder complete LT; examined in AP, internally rotated and scapular Y projections. FINDINGS: No evidence of acute osseous pathology, joint dislocation, or soft tissue swelling. The remaining po rtions of the visualized chest are unremarkable. Mild degeneration changes of the acromion and dista l clavicle. IMPRESSION: No acute osseous pathology.
--- NOTE | 2023-09-12 12:46 | XR ---
EXAMINATION TYPE: XR elbow complete LT DATE OF EXAM: 09/12/2023 12:34 PM CLINICAL INDICATION:Female, 63 years old with history of pain s/p fall; [facility] COMPARISON: None TECHNIQUE: XR elbow complete LT; elbow was examined in AP, lateral, and oblique projections. FINDINGS/IMPRESSION: Cortical buckling of the radial neck suggested on one view. No other fractures definitively visualize d. Anterior fat pad sign also present suggesting joint effusion supporting fracture. Consider evaluat ion with CT for confirmation.
--- NOTE | 2023-09-12 12:47 | XR ---
EXAMINATION TYPE: XR hand complete LT DATE OF EXAM: 09/12/2023 12:34 PM CLINICAL INDICATION:Female, 63 years old with history of pain s/p fall; [facility] COMPARISON: None TECHNIQUE: XR hand complete LT Frontal, lateral and oblique views were obtained. FINDINGS: Normal alignment of the visualized joints. No acute osseous pathology is identified. No e vidence of soft tissue swelling. Multifocal degeneration changes with joint space narrowing and osteo phyte formation. IMPRESSION: 1. No acute osseous pathology. 2. 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
[2023-09-12 13:20] VITALS: BP 128/79; PULSE 89; TEMP 98.3
== END 2023-09-12 13:21 | disposition home or self-care (01) ==
LOC: EC 11:15
DX: S52.132A Displaced fracture of neck of left radius, initial encounter for closed fracture (principal); F17.200 Nicotine dependence, unspecified, uncomplicated; Z91.040 Latex allergy status; Z88.1 Allergy status to other antibiotic agents; Z88.6 Allergy status to analgesic agent; W01.0XXA Fall on same level from slipping, tripping and stumbling without subsequent striking against object, initial encounter; Y93.K1 Activity, walking an animal
CPT/HCPCS: 29125; 99283; 99406

== ENCOUNTER → 2023-11-21 | Outpatient (CLI) | payer OTHER ==
--- NOTE | 2023-11-21 12:22 | XR ---
EXAMINATION TYPE: XR chest 2V DATE OF EXAM: 11/21/2023 11:53 AM CLINICAL INDICATION: Female, 63 years old with history of R07.9 CHEST PAIN UNSPEC, F17.210 NICOTINE D EPENDEN; [facility] COMPARISON: Chest radiographs from 01/23/2021 TECHNIQUE: XR chest 2V Frontal view of the chest. FINDINGS: Lungs/Pleura: Prominent interstitial lung markings are seen scattered throughout the lungs with akm ening of the diaphragm and increased lucency of the lung apices. No evidence of focal consolidation, pneumothorax or pleural effusion. Pulmonary vascularity: Unremarkable. Heart/mediastinum: Cardiomediastinal silhouette is unremarkable. Musculoskeletal: No acute osseous pathology. IMPRESSION: 1. Chronic changes without acute pulmonary process. No significant change from prior. 2. COPD changes. [facility], , 11/21/2023 12:20 PM
== END | disposition home or self-care (01) ==
LOC: RADXRMAIN 11:23
PROVIDERS: ATTEND Internal Medicine
DX: J44.9 Chronic obstructive pulmonary disease, unspecified (principal); J98.4 Other disorders of lung; F17.210 Nicotine dependence, cigarettes, uncomplicated
CPT/HCPCS: 71046

== ENCOUNTER → 2024-01-21 | Outpatient (CLI) | payer OTHER ==
--- NOTE | 2024-01-21 13:37 | CT ---
EXAMINATION TYPE: CT chest w con CT DLP: 420 mGycm, Automated exposure control for dose reduction was used. DATE OF EXAM: 01/21/2024 12:46 PM COMPARISON: CT low-dose lung 09/11/2022, 07/19/2021, CTA chest 04/28/2020 CLINICAL INDICATION:Female, 63 years old with history of R91.1 SPN; [facility], f/u nodules TECHNIQUE: Multiple axial images were obtained through the chest following the administration of 100 cc of Isovue 300. . Coronal and sagittal reformats reviewed. FINDINGS: LUNGS/ PLEURA: Moderate centrilobular emphysematous changes. No pleural effusion, pneumothorax, foca l consolidation. Stable solid right mid lung 4 mm pulmonary nodule (series 4, image 33). AIRWAY: Patent and unremarkable.. HEART: Size within normal limits.No pericardial effusion. Moderate coronary arterial calcifications. MEDIASTINUM: No evidence of adenopathy. VASCULATURE: No aortic aneurysm. Mild atherosclerotic calcification of the aorta and its branches. MUSCULOSKELETAL: No acute osseous abnormalities. SOFT TISSUES/LYMPH NODES: Unremarkable. LOWER NECK: No significant findings. UPPER ABDOMEN: Subcentimeter hypodense focus within the right hepatic dome which is too small to amelia acterize but likely represents a cyst. Tiny hiatal hernia. IMPRESSION: 1. Stable right midlung 4 mm pulmonary nodule dating back to 2020 and considered benign. No new or en larging pulmonary nodules. 2. Moderate COPD changes. [facility], , 01/21/2024 1:35 PM
== END | disposition home or self-care (01) ==
LOC: RADCTMAIN 12:18
PROVIDERS: ATTEND Internal Medicine Critical Care Medicine
DX: J44.9 Chronic obstructive pulmonary disease, unspecified (principal); R91.1 Solitary pulmonary nodule; I70.0 Atherosclerosis of aorta; K44.9 Diaphragmatic hernia without obstruction or gangrene
CPT/HCPCS: 71260; Q9967

== ENCOUNTER 2024-01-24 11:46 | Day surgery (SDC) | payer OTHER ==
[2024-01-22 12:26] VITALS: BMI 21.6
[2024-01-24] MEDS: IV FLUID CONTINUATION 1,000 ML IV ONE (13:03)
[2024-01-24 13:07] VITALS: TEMP 97.8
[2024-01-24 13:18] LABS: Glucose,Whole Blood 101 mg/dL (70-110)
[2024-01-24] MEDS: LACTATED RINGERS 1,000 ML IV SCH (13:18)
[2024-01-24] MEDS ORDERED: LIDOCAINE 1% INJ 10MG/ML (20 ML MDV) ONE (14:08)
[2024-01-24] MEDS ORDERED: ALBUTEROL HFA INHALER INHALATION ONE (14:08)
[2024-01-24] MEDS ORDERED: PROPOFOL 10 MG/ML 20 ML VIAL IV ONE (14:08)
--- NOTE | 2024-01-24 14:26 | P.PCN ---
Date of Procedure: 01/24/24 Procedure(s) Performed: BRIEF HISTORY: Patient is a 63-year-old, pleasant, white female scheduled for an upper endoscopy as a part of evaluation of intermittent dysphagia to solids and some throat irritation for the last few months duration. PROCEDURE PERFORMED: Esophagogastroduodenoscopy with biopsy. PREOPERATIVE DIAGNOSIS: Throat irritation, throat pain and intermittent dysphagia to solid. IV sedation per anesthesia. PROCEDURE: After informed consent was obtained, the patient was brought into the endoscopy unit. IV sedation was administered by Anesthesia under continuous monitoring. Initially the Olympus GIF-140 video endoscope was inserted into the mouth. Esophagus intubated without any difficulty. It was gradually advanced into the stomach and duodenum and carefully examined. The bulb and the second part of the duodenum appeared normal. The scope at this time was withdrawn to the stomach, adequately insufflated with air, and upon careful examination, mucosa of the antrum had mild gastritis and biopsies were done from this area. Mucosa of the, body, cardia and the fundus appeared normal. The scope was then withdrawn into the esophagus. Small hiatal hernia noted. The GE junction was located at 39 cm from the incisors. 2 superficial erosions at the distal esophagus consistent with LA grade B reflux esophagitis. There was a 3 mm tongue of questionable Singh's appearing mucosa which was biopsied. The rest of the esophagus appeared normal.. The patient tolerated the procedure well. IMPRESSION: 1. Small hiatal hernia. 2. 2 superficial erosions at the GE junction consistent with LA grade B reflux esophagitis and short segment Singh's esophagus s/p biopsy. 3. Mild antral gastritis RECOMMENDATIONS: The findings of this examination were discussed with the patient as well as her family. She was advised to follow-up with the biopsy results.. Will give her a trial of Pepcid 20 mg twice daily for 6 weeks and was briefly educated about antireflux measures. If she still has persistent symptoms she was advised to follow-up in the office in 4 to 6 weeks.
[2024-01-24 14:51] VITALS: BP 151/88; PULSE 83; RESP 16
== END 2024-01-24 15:13 | disposition home or self-care (01) ==
LOC: ORWHC2ENDO 11:46
PROVIDERS: ATTEND Internal Medicine Gastroenterology
DX: K29.50 Unspecified chronic gastritis without bleeding (principal); K44.9 Diaphragmatic hernia without obstruction or gangrene; I10 Essential (primary) hypertension; E78.5 Hyperlipidemia, unspecified; J44.89 Other specified chronic obstructive pulmonary disease; E11.9 Type 2 diabetes mellitus without complications; K21.9 Gastro-esophageal reflux disease without esophagitis; F17.210 Nicotine dependence, cigarettes, uncomplicated; Z79.84 Long term (current) use of oral hypoglycemic drugs; Z79.899 Other long term (current) drug therapy; Z79.51 Long term (current) use of inhaled steroids; Z98.890 Other specified postprocedural states; Z88.6 Allergy status to analgesic agent; Z88.8 Allergy status to other drugs, medicaments and biological substances; Z91.040 Latex allergy status
CPT/HCPCS: 88305; 43239; J2003; J2704

== ENCOUNTER 2024-06-18 11:50 | Observation (INO) | payer OTHER ==
[2024-06-18] MEDS: MAGNESIUM SULFATE-D5W PMX 1 GM in DEXTROSE/WATER 1 100ML.BAG IVPB SCH (12:15)
[2024-06-18] MEDS: HYDROmorphone 0.5 MG/0.5 ML SYRINGE IVP STA (12:15)
[2024-06-18] MEDS: DILTIAZEM DRIP BOLUS FROM BAG 1 MG SOLN IV ONE ×2 (12:21→12:22)
[2024-06-18] MEDS: DILTIAZEM 125 MG in SODIUM CHLORIDE 0.9% 100 ML IV SCH (12:22)
[2024-06-18 12:24] LABS: Basophils # (A) 0.07 10*3/uL (0.00-0.10); Basophils % (A) 0.7 %; Eosinophils # (A) 0.39 10*3/uL (0.04-0.35); Eosinophils % (A) 4.1 %; HCT 35.9 % (37.2-46.3); HGB 12.1 g/dL (12.0-15.0); Lymphocytes # (A) 1.54 10*3/uL (0.90-5.00); Lymphocytes % (A) 16.1 %; MCH 32.5 pg (27.0-32.0); MCHC 33.7 g/dL (32.0-37.0); MCV 96.5 fL (80.0-97.0); Mean Platelet Volume 8.8 fL (9.5-12.2); Monocytes # (A) 0.82 10*3/uL (0.20-1.00); Monocytes % (A) 8.6 %; Neutrophils # (A) 6.68 10*3/uL (1.80-7.70); Neutrophils % (A) 70.1 %; Platelet Count 253 10*3/uL (140-440); RBC 3.72 10*6/uL (4.10-5.20); RDW 14.1 % (11.5-14.5); WBC 9.54 10*3/uL (4.50-10.00)
--- NOTE | 2024-06-18 12:24 | ED ---
General Adult HPI - General Chief complaint: Shortness of Breath Stated complaint: AFIB, rvr Time Seen by Provider: 06/18/24 11:55 Source: patient, RN notes reviewed, old records reviewed Mode of arrival: EMS Limitations: no limitations - History of Present Illness Initial comments: This is a 63-year-old female who presents to the emergency department c omplaining of difficulty breathing for 1 week. Patient assumed it was her COPD but it is not getting any better and she did go to urgent care and they gave her steroids and antibiotics and it was not improved. Patient denies any chest pain. Patient denies palpitation. Patient has swelling in the legs or calf tenderness. Patient [place] any abdominal pain patient has nausea vomiting diarrhea. - Related Data Home Medications Medication Instructions Recorded Confirmed FLUoxetine HCL [PROzac] 20 mg PO BID 03/25/17 06/18/24 Cholecalciferol [Vitamin D3 (25 25 mcg PO DAILY 04/28/20 06/18/24 Mcg = 1000 Iu)] lisinopriL [Zestril] 20 mg PO DAILY 07/20/21 06/18/24 Atorvastatin [Lipitor] 80 mg PO HS 08/23/22 06/18/24 Montelukast [Singulair] 10 mg PO DAILY 01/10/23 06/18/24 Budesonide/Formoterol Fumarate 2 puff INHALATION RT-BID 01/22/24 06/18/24 [Symbicort 160-4.5 Mcg Inhaler] Albuterol Nebulized [Ventolin 2.5 mg INHALATION RT-QID PRN 06/18/24 06/18/24 Nebulized] Albuterol Sulfate [Albuterol 2 puff INHALATION RT-Q4H PRN 06/18/24 06/18/24 Sulfate Hfa] Cyanocobalamin [Vitamin B-12] 500 mcg PO DAILY 06/18/24 06/18/24 HYDROcodone/APAP 10-325MG [[place] 1 tab PO TID PRN 06/18/24 06/18/24 10-325] Tiotropium 2.5 Mcg/Puff [Spiriva 1 puff INHALATION RT-DAILY 06/18/24 06/18/24 Respimat 2.5 Mcg] Allergies Allergy/AdvReac Type Severity Reaction Status Date / Time naproxen [From Naprosyn] Allergy Mild Nausea & Verified 06/18/24 12:32 Vomiting Latex, Natural Rubber Allergy Rash/Hives Verified 06/18/24 12:32 propoxyphene Allergy Nausea & Verified 06/18/24 12:32 [From Darvocet-N] Vomiting cefuroxime AdvReac Abdominal Verified 06/18/24 12:32 Pain Review of Systems ROS Statement: Those systems with pertinent positive or pertinent negative responses have been documented in the HPI. ROS Other: All systems not noted in ROS Statement are negative. Past Medical History Past Medical History: Atrial Fibrillation, Asthma, COPD, Diabetes Mellitus, GERD/Reflux, Hyperlipidemia, Hypertension, Liver Disease, Pneumonia, Seizure Disorder Additional Past Medical History / Comment(s): Environmental allergies. Left knee problems. Seizure disorder(epilepsy) since infancy, but no recent seizures. Hx diabetes, no longer considered diabetic since wt loss. Hx Hepatitis C, alcoholic hepatitis. Chronic neck and low back pain. Diverticular disease, hx benign colon polyps, frequent diarrhea. History of Any Multi-Drug Resistant Organisms: None Reported Past Surgical History: Breast Surgery, Orthopedic Surgery Additional Past Surgical History / Comment(s): Left fallopian tube removed and oophorectomy due to tubal /cysts, cysts removed from bilateral breasts, cyst removed from forehead, left knee arthroscopy X2, bilateral cataract surgery with lens implants, colonoscopy/polypectomy, hemorrhoidectomy, PAIN CLINIC PROCEDURES. Past Anesthesia/Blood Transfusion Reactions: No Reported Reaction Additional Past Anesthesia/Blood Transfusion Reaction / Comment(s): No hx of blood transfusion to date. Past Psychological History: Anxiety, Depression Smoking Status: Current every day smoker Past Alcohol Use History: Abuse, Daily Past Drug Use History: None Reported - Past Family History Mother Family Medical History: Cancer, COPD Additional Family Medical History / Comment(s): Lung cancer. Father Family Medical History: Liver Disease Additional Family Medical History / Comment(s): Father had liver cirrhosis. He was an alcoholic. Sister(s) Family Medical History: Cancer Additional Family Medical History / Comment(s): Lung cancer. General Exam - General Exam Comments Initial Comments: GENERAL: Patient is well-developed and well-nourished. Patient is nontoxic and well- hydrated and is in mild distress. ENT: Neck is soft and supple. No significant lymphadenopathy is noted. Oropharynx is clear. Moist mucous membranes. Neck has full range of motion without eliciting any pain. EYES: The sclera were anicteric and conjunctiva were pink and moist. Extraocular movements were intact and pupils were equal round and reactive to light. Eyelids were unremarkable. PULMONARY: Unlabored respirations. Good breath sounds bilaterally. No audible rales rhonchi or wheezing was noted. CARDIOVASCULAR: Patient's heart rate is 150 beats a minute and irregular ABDOMEN: Soft and nontender with normal bowel sounds. SKIN: Skin is clear with no lesions or rashes and otherwise unremarkable. NEUROLOGIC: Patient is alert and oriented x3. Cranial nerves II through XII are grossly intact. Motor and sensory are also intact. Normal speech, volume and content. Symmetrical smile. MUSCULOSKELETAL: Normal extremities with adequate strength and full range of motion. No lower extremity swelling or edema. No calf tenderness. LYMPHATICS: No significant lymphadenopathy is noted PSYCHIATRIC: Normal psychiatric evaluation. Limitations: no limitations Course Vital Signs 06/18/24 06/18/24 06/18/24 11:52 11:59 12:20 Temperature 98.2 F Pulse Rate 158 H 160 H 157 H Pulse Rate [ 160 H Insurance Claims Specialist ] Respiratory 30 H 26 H 24 Rate Blood Pressure 122/97 130/66 119/101 O2 Sat by Pulse 99 98 98 Oximetry 06/18/24 06/18/24 06/18/24 12:40 13:06 14:04 Temperature Pulse Rate 97 93 100 Pulse Rate [ Insurance Claims Specialist ] Respiratory 20 18 18 Rate Blood Pressure 101/72 99/66 106/78 O2 Sat by Pulse 97 95 98 Oximetry Medical Decision Making - Medical Decision Making EKG is interpreted by myself. EKG shows atrial fibrillation at 138 bpm QRS is 70 QT interval is 265 QTc is 345. Patient's EKG shows no ST segment elevation or depression. Was pt. sent in by a medical professional or institution (, PA, FORM DRAFTER, urgent care, hospital, or detention...) When possible be specific @ -No Did you speak to anyone other than the patient for history (EMS, parent, family, police, friend...)? What history was obtained from this source @ -No Did you review nursing and triage notes (agree or disagree)? Why? @ -I reviewed and agree with nursing and triage notes Were old charts reviewed (outside hosp., previous admission, EMS record, old E KG, old radiological studies, urgent care reports/EKG's, detention records)? Report findings @ -No old charts were reviewed Differential Diagnosis? @ -Differential Palpitations Ventricular arrhythmias, atrial arrhythmias, myocardial infarction, anemia, thyrotoxicosis, electrolyte imbalance, hypokalemia, pulmonary embolism, pulmonary disease, drugs, alcohol, anxiety, stress.... This is not meant to be an all-inclusive list. EKG interpreted by me (3pts min.). @ -As above X-rays interpreted by me (1pt min.). @ -Chest x-ray shows mild pulmonary edema CT interpreted by me (1pt min.). @ -None done U/S interpreted by me (1pt. min.). @ -None done What testing was considered but not performed or refused? (CT, X-rays, U/S, labs)? Why? @ -None What meds were considered but not given or refused? Why? @ -None Did you discuss the management of the patient with other professionals (professionals i.e. , PA, FORM DRAFTER, lab, RT, psych nurse, criminal justice social worker, storage facility rental clerk, teacher, job placement officer, correctional case manager)? Give summary @ -I spoke with [facility] [place] [facility] he agreed to admit the patient admit the patient wrote admitting orders Was smoking cessation discussed for >3mins.? @ -No Was critical care preformed (if so, how long)? @ -35 minutes Were there social determinants of health that impacted care today? How? (Homelessness, low income, unemployed, alcoholism, drug addiction, transportation, low edu. Level, literacy, decrease access to med. care, [facility], rehab)? @ -No Was there de-escalation of care discussed even if they declined (Discuss DNR or withdrawal of care, Hospice)? DNR status @ -No What co-morbidities impacted this encounter? (DM, HTN, Smoking, COPD, CAD, Cancer, CVA, ARF, Chemo, Hep., AIDS, mental health diagnosis, sleep apnea, morbid obesity)? @ -None Was patient admitted / discharged? Hospital course, mention meds given and route, prescriptions, significant lab abnormalities, going to OR and other pertinent info. @ -Patient was given a Cardizem bolus followed by Cardizem drip heart rate came down to about 110 but was still irregular show patient will be admitted to [facility] [place] [facility] with a consult to cardiology. Patient was also started on heparin. Patient was also given 2 mg of IV magnesium sulfate Undiagnosed new problem with uncertain prognosis? @ -No Drug Therapy requiring intensive monitoring for toxicity (Heparin, Nitro, Insulin, Cardizem)? @ -No Were any procedures done? @ -No Diagnosis/symptom? @ -Atrial fibrillation with rapid ventricular response Acute, or Chronic, or Acute on Chronic? @ -Acute Uncomplicated (without systemic symptoms) or Complicated (systemic symptoms)? @ -Complicated Side effects of treatment? @ -No Exacerbation, Progression, or Severe Exacerbation? @ -No Poses a threat to life or bodily function? How? (Chest pain, [place], [place], pneumonia, PE, COPD, DKA, ARF, appy, cholecystitis, CVA, Diverticulitis, Homicidal, Suicidal, threat to staff... and all critical care pts) @ -Yes this can lead to poor perfusion and endorgan dysfunction of possible stroke - Lab Data Result diagrams: 06/18/24 12:07 06/18/24 12:07 Lab Results 06/18/24 06/18/24 06/18/24 Range/Units 12:07 12:07 12:07 WBC 9.54 (4.50-10.00) 10*3/uL RBC 3.72 L (4.10-5.20) 10*6/uL Hgb 12.1 (12.0-15.0) g/dL Hct 35.9 L (37.2-46.3) % MCV 96.5 (80.0-97.0) fL MCH 32.5 H (27.0-32.0) pg MCHC 33.7 (32.0-37.0) g/dL Plt Count 253 (140-440) 10*3/uL MPV 8.8 L (9.5-12.2) fL Immature Gran % (Auto) 0.4 % Neutrophils % 70.1 % Lymphocytes % 16.1 % Monocytes % 8.6 % Eosinophils % 4.1 % Basophils % 0.7 % Immature Gran # 0.04 (0.00-0.04) 10*3/uL Neutrophils # 6.68 (1.80-7.70) 10*3/uL Lymphocytes # 1.54 (0.90-5.00) 10*3/uL Monocytes # 0.82 (0.20-1.00) 10*3/uL Eosinophils # 0.39 H (0.04-0.35) 10*3/uL Basophils # 0.07 (0.00-0.10) 10*3/uL PT 10.4 (10.0-12.5) sec INR 0.9 (<1.2) APTT 25.5 (22.0-30.0) sec Sodium 133 L (137-145) mmol/L Potassium 4.7 (3.5-5.1) mmol/L Chloride 104 (98-107) mmol/L Carbon Dioxide 15 L (22-30) mmol/L Anion Gap 14 mmol/L BUN 22 H (7-17) mg/dL Creatinine 1.04 (0.52-1.04) mg/dL Est GFR (CKD-EPI)AfAm 66 (>60 ml/min/1.73 sqM) Est GFR (CKD-EPI)NonAf 58 (>60 ml/min/1.73 sqM) Glucose 83 (74-99) mg/dL Calcium 9.1 (8.4-10.2) mg/dL Magnesium 1.8 (1.6-2.3) mg/dL Total Bilirubin 0.7 (0.2-1.3) mg/dL AST 23 (14-36) U/L ALT 14 (4-34) U/L Alkaline Phosphatase 65 (38-126) U/L Troponin I (0.000-0.034) ng/mL NT-Pro-B Natriuret Pep 3820 pg/mL Total Protein 7.4 (6.3-8.2) g/dL Albumin 4.2 (3.5-5.0) g/dL 06/18/24 Range/Units 12:07 WBC (4.50-10.00) 10*3/uL RBC (4.10-5.20) 10*6/uL Hgb (12.0-15.0) g/dL Hct (37.2-46.3) % MCV (80.0-97.0) fL MCH (27.0-32.0) pg MCHC (32.0-37.0) g/dL Plt Count (140-440) 10*3/uL MPV (9.5-12.2) fL Immature Gran % (Auto) % Neutrophils % % Lymphocytes % % Monocytes % % Eosinophils % % Basophils % % Immature Gran # (0.00-0.04) 10*3/uL Neutrophils # (1.80-7.70) 10*3/uL Lymphocytes # (0.90-5.00) 10*3/uL Monocytes # (0.20-1.00) 10*3/uL Eosinophils # (0.04-0.35) 10*3/uL Basophils # (0.00-0.10) 10*3/uL PT (10.0-12.5) sec INR (<1.2) APTT (22.0-30.0) sec Sodium (137-145) mmol/L Potassium (3.5-5.1) mmol/L Chloride (98-107) mmol/L Carbon Dioxide (22-30) mmol/L Anion Gap mmol/L BUN (7-17) mg/dL Creatinine (0.52-1.04) mg/dL Est GFR (CKD-EPI)AfAm (>60 ml/min/1.73 sqM) Est GFR (CKD-EPI)NonAf (>60 ml/min/1.73 sqM) Glucose (74-99) mg/dL Calcium (8.4-10.2) mg/dL Magnesium (1.6-2.3) mg/dL Total Bilirubin (0.2-1.3) mg/dL AST (14-36) U/L ALT (4-34) U/L Alkaline Phosphatase (38-126) U/L Troponin I <0.012 (0.000-0.034) ng/mL NT-Pro-B Natriuret Pep pg/mL Total Protein (6.3-8.2) g/dL Albumin (3.5-5.0) g/dL Disposition Clinical Impression: Atrial fibrillation with rapid ventricular response Disposition: ADMITTED IP TO THIS HOSP Referrals: Meek Stark DO [Primary Care Provider] - 1-2 days Time of Disposition: 14:19
[2024-06-18 12:39] LABS: INR 0.9 (<1.2); Partial Thromboplastin Time 25.5 sec (22.0-30.0); Prothrombin Time 10.4 sec (10.0-12.5)
[2024-06-18 12:55] LABS: ALT 14 U/L (4-34); AST 23 U/L (14-36); African American GFR (CKD) 66 (>60 ml/min/1.73 sqM); Albumin 4.2 g/dL (3.5-5.0); Alkaline Phosphatase 65 U/L (38-126); Anion Gap 14 mmol/L; Blood Urea Nitrogen 22 mg/dL (7-17); Calcium 9.1 mg/dL (8.4-10.2); Carbon Dioxide 15 mmol/L (22-30); Chloride 104 mmol/L (98-107); Glucose 83 mg/dL (74-99); Magnesium 1.8 mg/dL (1.6-2.3); Non-African American GFR(CKD) 58 (>60 ml/min/1.73 sqM); Potassium 4.7 mmol/L (3.5-5.1); Sodium 133 mmol/L (137-145); Total Bilirubin 0.7 mg/dL (0.2-1.3); Total Protein 7.4 g/dL (6.3-8.2)
[2024-06-18 13:04] LABS: NT-Pro-B-Type Natriuretic Pept 3820 pg/mL
[2024-06-18] MEDS: HEPARIN SODIUM 1,000 UN/ML (10ML VL) IV ONE (13:08)
[2024-06-18] MEDS: HEPARIN SOD,PORK IN 0.45% NACL 25,000 UNIT in 0.45% NACL 1 250ML.BAG IV SCH (13:10)
[2024-06-18] MEDS ORDERED: NITROGLYCERIN SL TABS 0.4 MG TAB SUBLINGUAL PRN (14:25)
[2024-06-18] MEDS ORDERED: ALBUTEROL NEBULIZED 2.5 MG/3 ML INHALATION PRN (14:43)
[2024-06-18] MEDS: ASPIRIN 81 MG PO STA (15:03)
--- NOTE | 2024-06-18 15:05 | XR ---
EXAMINATION TYPE: XR chest 2V DATE OF EXAM: 06/18/2024 2:13 PM COMPARISON: Chest radiographs from 11/21/2023, CT chest 01/21/2024 TECHNIQUE: XR chest 2V Frontal and lateral views of the chest. CLINICAL INDICATION:Female, 63 years old with history of dysrhythmia; FINDINGS: Lungs/Pleura: There is flattening of the diaphragm with increased lucency of the lungs. No evidence o f pneumothorax, pleural effusion or focal consolidation. Pulmonary vascularity: Unremarkable. Heart/mediastinum: Cardiomediastinal silhouette is prominent in size. Atherosclerotic calcifications are seen in the aorta. Musculoskeletal: No acute osseous pathology. Mild multilevel degenerative disc disease. IMPRESSION: 1. No acute cardiopulmonary disease process. 2. COPD changes. [facility], , 06/18/2024 3:02 PM
--- NOTE | 2024-06-18 15:55 | P.HPIM ---
History of Present Illness H&P Date: 06/18/24 History of present illness; 63-year-old female with PMH of hypertension, hyperlipidemia, anxiety/depression, COPD and degenerative disc disease in her back (follows with Dr. Nina at pain management clinic) presents emergency department with complaint of worsening shortness of breath over the past week. She states that she thought it was her COPD and went to an urgent care for evaluation, there she was given steroids and antibiotic. She noted no improvement. She has noticed increased swelling of her legs, particularly on her right. She endorses having chest pain for the past week or so which she describes as pressure-like in the center of her chest, without radiation. Over the past week she has noticed an inability to lie flat, as it causes her worsening shortness of breath, she is slept sitting upright in a chair. She denies any palpitations, nausea, vomiting, diarrhea. She was found to be in A-fib with RVR upon arrival to the emergency room. ED documentation reviewed. In the ED she was given a heparin bolus and a 16 mg Cardizem bolus. She was started on Cardizem drip and a heparin drip. She received one 0.5 mg Dilaudid. She received 2 g magnesium sulfate. Social Hx: -Smoking: Current everyday smoker, 1 pack/day; 48 pack year history -Drinkin-2 beers daily -Recreational drugs: Denies Labratory review: -WBCs 5.54, hemoglobin 12.1, hematocrit 35.9, platelet 253; sodium 133, potassium 4.7, bicarb 15, anion gap 14, BUN 22, creatinine 1.04, calcium 9.1, magnesium 1.8, total bilirubin 0.7, AST 23, ALT 14, alkaline phosphatase 65; troponin <0.012, proBNP 3820 Imaging: -Chest x-ray done in the ER independently read and interpreted shows no marked vascularity -EKG done in the ER showed heart rate of 138, atrial fibrillation with RVR Vitals: -On arrival: Blood pressure 119/101, heart rate 157, respiratory rate 24, SpO2 98% on room air -Most recently: Blood pressure 106/78, heart rate 100, respiratory rate 18, SpO2 98% on room air Patient admitted to internal medicine service REVIEW OF SYSTEMS: Pertinent positives and negatives noted in HPI. The rest of the 14-point review of systems is negative. Physical Exam: General: nontoxic, no distress, appears at stated age Derm: warm, dry, intact Head: atraumatic, normocephalic, symmetric Eyes: EOMI, anicteric sclera Mouth: no lip lesion, mucus membranes moist Cardiovascular: S1 S2 reg, no murmur, rubs, or gallops Lungs: Faint rales noted in the bilateral lower lobes R>L Abdominal: soft, non-tender to palpataion, no appreciable organomegaly Extremities: no gross muscle atrophy, trace edema of the right lower extremity Neuro: Alert, Oriented, CNII-XII grossly intact, gait normal Psych: well appearing, appropriate affect Assessment and plan 63-year-old female with PMH of hypertension, hyperlipidemia, anxiety/depression, COPD and degenerative disc disease in her back (follows with Dr. Nina at pain management clinic) presents emergency department with complaint of worsening shortness of breath over the past week. She was found to be in A-fib with RVR upon arrival to the emergency room. #Potential new onset ischemic cardiomyopathy #New onset A-fib with RVR, possibly secondary to above #Acute on chronic HFpEF exacerbation (most recent echocardiogram 04/29/2020 showed EF 60-65%), possibly secondary to above #Atypical chest pain r/o ACS -EKG in the ER showed heart rate 138, atrial fibrillation with RVR -Trend troponins: <0.012 -> <0.012 -BNP 3220 -One 40 mg dose Lasix IV in ED, monitor electrolytes -81 mg aspirin daily, 80 mg Lipitor nightly -TSH ordered, currently pending -Continue with Cardizem drip -Continue with heparin drip -Echocardiogram pending -CHADS-VASc score of 3 -Continue with nitroglycerin as needed for pain -Strict I's and O's, daily weights -Cardiology consulted #Non oxygen dependant COPD, not currently in exacerbation -Continue home inhalers #Hypertension -Continue home lisinopril 20mg daily #Hyperlipidemia -Continue Lipitor as above #Nicotine dependence -Educated on importance of smoking cessation -Started on nicotine patch 21mg/24 hours daily #Chronic degenerative disc disease -Follows with Dr. 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 CODE STATUS: Full code Discussed with: Patient Anticipated discharge place: Home Dictation was produced using [employer] dictation software. please excuse any grammatical, word or spelling errors. Andrew Sotomayor MD PGY-1 IM Addending attestation I have seen and evaluated the patient today. Discussed with the resident and agree with the residents finding and plan as documented in the resident's note. Changes highlighted in blue font. Past Medical History Past Medical History: Atrial Fibrillation, Asthma, COPD, Diabetes Mellitus, MARIO D/Reflux, Hyperlipidemia, Hypertension, Liver Disease, Pneumonia, Seizure Disorder Additional Past Medical History / Comment(s): Environmental allergies. Left knee problems. Seizure disorder(epilepsy) since infancy, but no recent seizures. Hx diabetes, no longer considered diabetic since wt loss. Hx Hepatitis C, alcoholic hepatitis. Chronic neck and low back pain. Diverticular disease, hx benign colon polyps, frequent diarrhea. History of Any Multi-Drug Resistant Organisms: None Reported Past Surgical History: Breast Surgery, Orthopedic Surgery Additional Past Surgical History / Comment(s): Left fallopian tube removed and oophorectomy due to tubal /cysts, cysts removed from bilateral breasts, cyst removed from forehead, left knee arthroscopy X2, bilateral cataract surgery with lens implants, colonoscopy/polypectomy, hemorrhoidectomy, PAIN CLINIC PROCEDURES. Past Anesthesia/Blood Transfusion Reactions: No Reported Reaction Additional Past Anesthesia/Blood Transfusion Reaction / Comment(s): No hx of blood transfusion to date. Past Psychological History: Anxiety, Depression Smoking Status: Current every day smoker Past Alcohol Use History: Abuse, Daily Past Drug Use History: None Reported - Past Family History Mother Family Medical History: Cancer, COPD Additional Family Medical History / Comment(s): Lung cancer. Father Family Medical History: Liver Disease Additional Family Medical History / Comment(s): Father had liver cirrhosis. He was an alcoholic. Sister(s) Family Medical History: Cancer Additional Family Medical History / Comment(s): Lung cancer. Medications and Allergies Home Medications Medication Instructions Recorded Confirmed Type FLUoxetine HCL [PROzac] 20 mg PO BID 03/25/17 06/18/24 History Cholecalciferol [Vitamin D3 (25 25 mcg PO DAILY 04/28/20 06/18/24 History Mcg = 1000 Iu)] lisinopriL [Zestril] 20 mg PO DAILY 07/20/21 06/18/24 History Atorvastatin [Lipitor] 80 mg PO HS 08/23/22 06/18/24 History Montelukast [Singulair] 10 mg PO DAILY 01/10/23 06/18/24 History Budesonide/Formoterol Fumarate 2 puff INHALATION RT-BID 01/22/24 06/18/24 History [Symbicort 160-4.5 Mcg Inhaler] Albuterol Nebulized [Ventolin 2.5 mg INHALATION RT-QID PRN 06/18/24 06/18/24 History Nebulized] Albuterol Sulfate [Albuterol 2 puff INHALATION RT-Q4H PRN 06/18/24 06/18/24 History Sulfate Hfa] Cyanocobalamin [Vitamin B-12] 500 mcg PO DAILY 06/18/24 06/18/24 History HYDROcodone/APAP 10-325MG [[place] 1 tab PO TID PRN 06/18/24 06/18/24 History 10-325] Tiotropium 2.5 Mcg/Puff [Spiriva 1 puff INHALATION RT-DAILY 06/18/24 06/18/24 H istory Respimat 2.5 Mcg] Allergies Allergy/AdvReac Type Severity Reaction Status Date / Time naproxen [From Naprosyn] Allergy Mild Nausea & Verified 06/18/24 12:32 Vomiting Latex, Natural Rubber Allergy Rash/Hives Verified 06/18/24 12:32 propoxyphene Allergy Nausea & Verified 06/18/24 12:32 [From Darvocet-N] Vomiting cefuroxime AdvReac Abdominal Verified 06/18/24 12:32 Pain Physical Exam Osteopathic Statement: *. No significant issues noted on an osteopathic structural exam other than those noted in the History and Physical/Consult. Vitals: Vital Signs Temp Pulse Pulse Resp BP Pulse Ox 06/18/24 14:04 100 18 106/78 98 06/18/24 13:06 93 18 99/66 95 06/18/24 12:40 97 20 101/72 97 06/18/24 12:20 157 H 24 119/101 98 06/18/24 11:59 160 H 160 H 26 H 130/66 98 06/18/24 11:52 98.2 F 158 H 30 H 122/97 99 Intake and Output 06/17/24 06/18/24 06/18/24 22:59 06:59 14:59 Other: Weight 64.864 kg Results CBC & Chem 7: 06/18/24 12:07 06/18/24 12:07 Labs: Abnormal Lab Results - Last 24 Hours (Table) 06/18/24 06/18/24 Range/Units 12:07 12:07 RBC 3.72 L (4.10-5.20) 10*6/uL Hct 35.9 L (37.2-46.3) % MCH 32.5 H (27.0-32.0) pg MPV 8.8 L (9.5-12.2) fL Eosinophils # 0.39 H (0.04-0.35) 10*3/uL Sodium 133 L (137-145) mmol/L Carbon Dioxide 15 L (22-30) mmol/L BUN 22 H (7-17) mg/dL
[2024-06-18] MEDS: HYDROcodone/APAP 10-325MG 1 EACH TAB PO PRN (16:09)
[2024-06-18] MEDS: NICOTINE 21MG/24HR PATCH TRANSDERM SCH (16:09)
[2024-06-18] MEDS: FUROSEMIDE 10 MG/ML 4 ML VIAL IV STA (16:09)
[2024-06-18 17:25] LABS: Influenza A Not Detected (Not Detectd); Influenza B Not Detected (Not Detectd); RSV Not Detected (Not Detectd)
[2024-06-18] MEDS: SYMBICORT 160-4.5 MCG INHALER INHALATION SCH (20:04)
[2024-06-18] MEDS: HEPARIN SODIUM 1,000 UN/ML (10ML VL) IV PRN (20:06)
[2024-06-18] MEDS: ATORVASTATIN 80 MG TAB PO SCH (20:47)
[2024-06-18] MEDS: FLUoxetine HCL 20 MG CAP PO SCH (20:47)
[2024-06-19] MEDS: ALBUTEROL NEBULIZED 2.5 MG/3 ML INHALATION PRN (00:30)
[2024-06-19 01:46] LABS: HCT 36.1 % (37.2-46.3); HGB 12.1 g/dL (12.0-15.0); MCH 32.4 pg (27.0-32.0); MCHC 33.5 g/dL (32.0-37.0); MCV 96.5 fL (80.0-97.0); Mean Platelet Volume 8.6 fL (9.5-12.2); Platelet Count 252 10*3/uL (140-440); RBC 3.74 10*6/uL (4.10-5.20); WBC 6.92 10*3/uL (4.50-10.00)
[2024-06-19 03:12] LABS: African American GFR (CKD) 64 (>60 ml/min/1.73 sqM); Anion Gap 8 mmol/L; Blood Urea Nitrogen 24 mg/dL (7-17); Calcium 9.4 mg/dL (8.4-10.2); Carbon Dioxide 21 mmol/L (22-30); Chloride 103 mmol/L (98-107); Glucose 109 mg/dL (74-99); Non-African American GFR(CKD) 56 (>60 ml/min/1.73 sqM); Potassium 4.4 mmol/L (3.5-5.1); Sodium 132 mmol/L (137-145)
[2024-06-19] MEDS: TIOTROPIUM 2.5 MCG INHALER INHALATION SCH (08:09)
[2024-06-19 08:23] LABS: Chol/HDL Ratio 3.14 Ratio
[2024-06-19] MEDS ORDERED: ASPIRIN 325 MG TAB PO SCH (09:00)
[2024-06-19] MEDS ORDERED: lisinopriL 20 MG TAB PO SCH (09:00)
[2024-06-19] MEDS ORDERED: MIDAZOLAM 2 MG/2 ML VIAL IV PRN (09:17)
[2024-06-19] MEDS ORDERED: fentaNYL (PF) 50 MCG/ML 2 ML AMP IVP PRN (09:17)
[2024-06-19] MEDS: lisinopriL 20 MG TAB PO SCH (09:32)
[2024-06-19] MEDS: ASPIRIN 81 MG PO SCH (09:32)
[2024-06-19] MEDS: MONTELUKAST 10 MG TAB PO SCH (09:32)
[2024-06-19] MEDS: APIXABAN 5 MG TAB PO SCH (09:38)
[2024-06-19] MEDS: METOPROLOL TARTRATE 25 MG TAB PO SCH (09:38)
[2024-06-19] MEDS: IV FLUID CONTINUATION 1,000 ML IV ONE (10:10)
[2024-06-19] MEDS ORDERED: LIDOCAINE 2% (PF) 20 MG/ML 5 ML VIAL ONE (10:16)
[2024-06-19] MEDS ORDERED: PROPOFOL 10 MG/ML 20 ML VIAL IV ONE (10:16)
[2024-06-19] MEDS: BENZOCAINE SPRAY 1 EACH MM SCH (10:21)
--- NOTE | 2024-06-19 10:32 | P.PN ---
Subjective Progress Note Date: 06/19/24 63-year-old female with PMH of hypertension, hyperlipidemia, anxiety/depression, COPD and degenerative disc disease in her back (follows with Dr. Nina at pain management clinic) presents emergency department with complaint of worsening shortness of breath over the past week. She states that she thought it was her COPD and went to an urgent care for evaluation, there she was given steroids and antibiotic. She noted no improvement. She has noticed increased swelling of her legs, particularly on her right. She endorses having chest pain for the past week or so which she describes as pressure-like in the center of her chest, without radiation. Over the past week she has noticed an inability to lie flat, as it causes her worsening shortness of breath, she is slept sitting upright in a chair. She denies any palpitations, nausea, vomiting, diarrhea. She was found to be in A-fib with RVR upon arrival to the emergency room. 06/19 - She is seen and evaluated at bedside this morning, now on the 6th floor. She had no acute events overnight, and has no acute complaints this morning. She has remained rate controlled since yesterday afternoon, however according to telemetry has remained in A-fib with RVR. Seen evaluated cardiology this morning, recommend cardioversion, reports the patient was taken for this morning. Cardizem drip and heparin drip both discontinued, initiated on Eliquis 5 mg twice daily and metoprolol 25 mg twice daily REVIEW OF SYSTEMS: Pertinent positives and negatives noted in HPI. Physical Exam: Vital signs reviewed General: nontoxic, no distress, appears at stated age Derm: warm, dry, intact Head: atraumatic, normocephalic, symmetric Eyes: EOMI, anicteric sclera Mouth: no lip lesion, mucus membranes moist Cardiovascular: S1 S2 reg, no murmur, rubs, or gallops Lungs: Faint rales noted in the bilateral lower lobes R>L; with notable shortness of breath on exertion Abdominal: soft, non-tender to palpataion, no appreciable organomegaly Extremities: no gross muscle atrophy, trace edema of the right lower extremity Neuro: Alert, Oriented, CNII-XII grossly intact, gait normal Psych: well appearing, appropriate affect Data Received Today: Labs: WBC 6.19, hemoglobin 12.1, hematocrit 36.1, platelet 252; sodium 132, potassium 4.4, bicarb 21, BUN 24, creatinine 1.07, calcium 9.4, magnesium 2.0; TSH 1.050 Imagining: Echocardiogram taken, awaiting final read Assessment and plan 63-year-old female with PMH of hypertension, hyperlipidemia, anxiety/depression, COPD and degenerative disc disease in her back (follows with Dr. Nina at pain management clinic) presents emergency department with complaint of worsening shortness of breath over the past week. She was found to be in A-fib with RVR upon arrival to the emergency room. #Potential new onset ischemic cardiomyopathy #New onset A-fib with RVR, possibly secondary to above #Acute on chronic HFpEF exacerbation (most recent echocardiogram 04/29/2020 showed EF 60-65%), possibly secondary to above #Atypical chest pain r/o ACS -EKG in the ER showed heart rate 138, atrial fibrillation with RVR -Trend troponins: <0.012 -> <0.012 -> 0.012 -BNP 3220 -81 mg aspirin daily, 80 mg Lipitor nightly -TSH 1.050 -Cardizem and heparin drip discontinued -Per cardiology, initiated on Lopressor 25 mg twice daily; also initiated on Eliquis 5 mg twice daily -Undergoing cardioversion morning of 06/19/2024 -Echocardiogram taken, awaiting final read -CHADS-VASc score of 3 -Continue with nitroglycerin as needed for pain -Strict I's and O's, daily weights -Cardiology consulted #Non oxygen dependant COPD, not currently in exacerbation -Continue home inhalers #Hypertension -Continue home lisinopril 20mg daily #Hyperlipidemia -Continue Lipitor as above #Nicotine dependence -Educated on importance of smoking cessation -Started on nicotine patch 21mg/24 hours daily #Chronic degenerative disc disease -Follows with Dr. 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 please excuse any grammatical, word or spelling errors. Andrew Sotomayor MD PGY-1 IM I saw and evaluated the patient during the turcios and critical portions of this encounter, and discussed the case in detail with the resident author of this note, I agree with the Assessment and Plan, and my changes, if any, are highlighted in blue. Patient was seen and examined today, is status post GLEN with cardioversion and feels back to baseline. Plan is for discharge of this patient today home with cardiology and pulmonology follow-up, as well as PCP. Discharge summary to follow. Objective - Vital Signs Vital signs: Vital Signs Temp 97.8 F 06/19/24 02:49 Pulse 92 06/19/24 06:00 Resp 18 06/19/24 02:49 BP 122/75 06/19/24 06:00 Pulse Ox 97 06/19/24 06:00 FiO2 Intake & Output 06/18/24 06/19/24 06/19/24 18:59 06:59 18:59 Intake Total 240 112.852 Balance 240 112.852 Weight 64.864 kg 60.5 kg Intake: Intake, IV Titration 112.852 Amount Diltiazem 125 mg In 62.083 Sodium Chloride 0.9% 100 ml @ 5 MG/HR 5 mls/hr IV .Q24H [place] Rx#:[id number] Heparin Sod,Pork in 0.45% 50.769 NaCl 25,000 unit In 0.45 % NaCl 1 250ml.bag @ 12 UNITS/KG/HR 7.784 mls/hr IV .Q24H [place] Rx#: [id number] Oral 240 Other: Voiding Method Toilet # Voids 2 1 - Labs CBC & Chem 7: 06/19/24 01:36 06/19/24 01:36 Labs: Abnormal Lab Results - Last 24 Hours (Table) 06/18/24 06/18/24 06/19/24 Range/Units 12:07 12:07 01:31 RBC 3.72 L (4.10-5.20) 10*6/uL Hct 35.9 L (37.2-46.3) % MCH 32.5 H (27.0-32.0) pg MPV 8.8 L (9.5-12.2) fL Eosinophils # 0.39 H (0.04-0.35) 10*3/uL APTT 40.7 H (22.0-30.0) sec Sodium 133 L (137-145) mmol/L Carbon Dioxide 15 L (22-30) mmol/L BUN 22 H (7-17) mg/dL Creatinine (0.52-1.04) mg/dL Glucose (74-99) mg/dL 06/19/24 06/19/24 Range/Units 01:36 01:36 RBC 3.74 L (4.10-5.20) 10*6/uL Hct 36.1 L (37.2-46.3) % MCH 32.4 H (27.0-32.0) pg MPV 8.6 L (9.5-12.2) fL Eosinophils # (0.04-0.35) 10*3/uL APTT (22.0-30.0) sec Sodium 132 L (137-145) mmol/L Carbon Dioxide 21 L (22-30) mmol/L BUN 24 H (7-17) mg/dL Creatinine 1.07 H (0.52-1.04) mg/dL Glucose 109 H (74-99) mg/dL
--- NOTE | 2024-06-19 10:49 | P.CRDCN ---
History of Present Illness Consult date: 06/19/24 Reason for Consult (text): New onset atrial fibrillation History of present illness: This is 63-year-old female patient with past medical history of hyper lipidemia, hypertension, tobacco use. Patient previously was seen by Dr. Miller in 2020. She states she does not follow with a pin cleaner. Patient has history that last month she was having upper respiratory symptoms and went to her PCP was placed on steroids and antibiotics for chest cold which she states did not help. She states she has continued to have shortness of breath and chest pain. She states it feels like a mountain on her chest. Patient was found to be in atrial fibrillation with RVR. She has been started on heparin drip and Cardizem drip. Patient is a smoker of 1 pack/day. She drinks alcohol couple beers per day. Patient also states that she snores at night but has not had a sleep study done and her pulmonary doctor is Dr. Agarwal which she will follow-up with as an outpatient for sleep study. Blood pressure 134/81, heart rate 79-90, pulse ox 100% on room air. -EKG: Atrial fibrillation at 138 bpm. -Chest x-ray: No acute process. COPD. -Laboratory studies: WBC 6.9, hemoglobin 12.1. Sodium 132, potassium 4.4, BUN 24 creatinine 1.07. Troponin negative x 3. proBNP 3820. Cepheid viral panel not detected. Triglycerides 128, cholesterol 293, LDL 174. TSH 1.05. -Home cardiac medications: Atorvastatin 80 mg at bedtime and lisinopril 20 mg da flaco. -Echocardiogram performed at [facility] 04/29/2020 revealed EF 60 to 65%, mild aortic valve sclerosis, trace to mild mitral regurgitation, mild tricuspid regurgitation, trace pulmonic regurgitation. No pericardial effusion. -Cardiolite stress test performed in the office on 05/12/2020 was a negative dobutamine stress test. Normal perfusion study. Normal gated images with a EF of 65%. Review Of Systems: At the time of my exam: CONSTITUTIONAL: Denies fever or chills. HEENT: Denies blurred vision, vision changes, or eye pain. Denies hemoptysis CARDIOVASCULAR: Denies chest pain. Denies orthopnea. Denies PND. Denies palpitations RESPIRATORY: Denies shortness of breath. GASTROINTESTINAL: Denies abdominal pain. Denies nausea or vomiting. HEMATOLOGIC: Denies bleeding disorders. GENITOURINARY: Denies any blood in urine. SKIN: Denies puritis. Denies rash. Physical examination: Gen: This is a 63-year-old female in no acute distress. VS: reviewed HEENT: Head is atraumatic, normocephalic. Pupils equal, round. Sclerae is anicteric. NECK: Supple. No JVD. LUNGS: Clear to auscultation. No wheezes or rhonchi. No intercostal retractions. HEART: Irregular rate and rhythm. No murmur. ABDOMEN: Soft No tenderness. EXTREMITIES: No pedal edema. No calf tenderness. NEUROLOGICAL: Patient is awake, alert and oriented x3. Assessment: New onset paroxysmal atrial fibrillation currently rate controlled Hyperlipidemia Hypertension COPD Daily alcohol intake Tobacco use and dependence Plan: Resume patient's home cardiac medications Discontinue Cardizem drip and heparin drip Start patient on metoprolol tartrate 25 mg twice daily and Eliquis 5 mg twice daily Schedule patient for GLEN and cardioversion today Obtain 2-D echocardiogram and Doppler study to assess cardiac structure and function Further recommendations to follow based upon clinical course Smoking cessation. Patient will be provided the [place] quit line information at discharge. Alcohol cessation Recommend outpatient sleep study which can be ordered by Dr. Agarwal Thank you kindly for this consultation. Nurse practitioner note has been reviewed, I agree with documented findings and plan of care. Patient was seen and examined. Past Medical History Past Medical History: Atrial Fibrillation, Asthma, COPD, Diabetes Mellitus, GERD/Reflux, Hyperlipidemia, Hypertension, Liver Disease, Pneumonia, Seizure Disorder Additional Past Medical History / Comment(s): Environmental allergies. Left knee problems. Seizure disorder(epilepsy) since infancy, but no recent seizures. Hx diabetes, no longer considered diabetic since wt loss. Hx Hepatitis C, alcoholic hepatitis. Chronic neck and low back pain. Diverticular disease, hx benign colon polyps, frequent diarrhea. History of Any Multi-Drug Resistant Organisms: None Reported Past Surgical History: Breast Surgery, Orthopedic Surgery Additional Past Surgical History / Comment(s): Left fallopian tube removed and oophorectomy due to tubal /cysts, cysts removed from bilateral breasts, cyst removed from forehead, left knee arthroscopy X2, bilateral cataract surgery with lens implants, colonoscopy/polypectomy, hemorrhoidectomy, PAIN CLINIC PROCEDURES. Past Anesthesia/Blood Transfusion Reactions: No Reported Reaction Additional Past Anesthesia/Blood Transfusion Reaction / Comment(s): No hx of blood transfusion to date. Past Psychological History: Anxiety, Depression Smoking Status: Current every day smoker Past Alcohol Use History: Abuse, Daily Past Drug Use History: None Reported - Past Family History Mother Family Medical History: Cancer, COPD Additional Family Medical History / Comment(s): Lung cancer. Father Family Medical History: Liver Disease Additional Family Medical History / Comment(s): Father had liver cirrhosis. He was an alcoholic. Sister(s) Family Medical History: Cancer Additional Family Medical History / Comment(s): Lung cancer. Medications and Allergies Home Medications Medication Instructions Recorded Confirmed Type FLUoxetine HCL [PROzac] 20 mg PO BID 03/25/17 06/18/24 History Cholecalciferol [Vitamin D3 (25 25 mcg PO DAILY 04/28/20 06/18/24 History Mcg = 1000 Iu)] lisinopriL [Zestril] 20 mg PO DAILY 07/20/21 06/18/24 History Atorvastatin [Lipitor] 80 mg PO HS 08/23/22 06/18/24 History Montelukast [Singulair] 10 mg PO DAILY 01/10/23 06/18/24 History Budesonide/Formoterol Fumarate 2 puff INHALATION RT-BID 01/22/24 06/18/24 History [Symbicort 160-4.5 Mcg Inhaler] Albuterol Nebulized [Ventolin 2.5 mg INHALATION RT-QID PRN 06/18/24 06/18/24 History Nebulized] Albuterol Sulfate [Albuterol 2 puff INHALATION RT-Q4H PRN 06/18/24 06/18/24 History Sulfate Hfa] Cyanocobalamin [Vitamin B-12] 500 mcg PO DAILY 06/18/24 06/18/24 History HYDROcodone/APAP 10-325MG [[place] 1 tab PO TID PRN 06/18/24 06/18/24 History 10-325] Tiotropium 2.5 Mcg/Puff [Spiriva 1 puff INHALATION RT-DAILY 06/18/24 06/18/24 History Respimat 2.5 Mcg] Allergies Allergy/AdvReac Type Severity Reaction Status Date / Time naproxen [From Naprosyn] Allergy Mild Nausea & Verified 06/18/24 12:32 Vomiting Latex, Natural Rubber Allergy Rash/Hives Verified 06/18/24 12:32 propoxyphene Allergy Nausea & Verified 06/18/24 12:32 [From Darlorriet-N] Vomiting cefuroxime AdvReac Abdominal Verified 06/18/24 12:32 Pain Physical Exam Vitals: Vital Signs Temp Pulse Pulse Resp BP BP Pulse Ox 06/19/24 07:30 97.9 F 91 16 131/82 97 06/19/24 06:00 92 122/75 97 06/19/24 04:43 84 143/85 97 06/19/24 02:49 97.8 F 78 18 99/62 97 06/19/24 00:38 62 06/19/24 00:32 60 06/18/24 20:23 97.8 F 58 L 19 133/64 95 06/18/24 20:06 85 06/18/24 15:22 98.2 F 102 H 18 133/93 97 06/18/24 15:00 97.7 F 86 18 119/78 97 06/18/24 14:50 97.7 F 86 18 97 06/18/24 14:04 100 18 106/78 98 06/18/24 13:06 93 18 99/66 95 06/18/24 12:40 97 20 101/72 97 06/18/24 12:20 157 H 24 119/101 98 06/18/24 11:59 160 H 160 H 26 H 130/66 98 06/18/24 11:52 98.2 F 158 H 30 H 122/97 99 Intake and Output 06/18/24 06/19/24 06/19/24 22:59 06:59 14:59 Intake Total 290.769 62.083 Balance 290.769 62.083 Intake: Intake, IV Titration 50.769 62.083 Amount Diltiazem 125 mg In 62.083 Sodium Chloride 0.9% 100 ml @ 5 MG/HR 5 mls/hr IV .Q24H [facility] Rx#:[id number] Heparin Sod,Pork in 0.45% 50.769 NaCl 25,000 unit In 0.45 % NaCl 1 250ml.bag @ 12 UNITS/KG/HR 7.784 mls/hr IV .Q24H [place] Rx#: [id number] Oral 240 Other: Voiding Method Toilet # Voids 1 1 Weight 60.5 kg Results 06/19/24 01:36 06/19/24 01:36 Cardiac Enzymes 06/18/24 06/18/24 06/18/24 Range/Units 12:07 12:07 14:35 AST 23 (14-36) U/L Troponin I <0.012 <0.012 (0.000-0.034) ng/mL 06/18/24 Range/Units 18:34 AST (14-36) U/L Troponin I <0.012 (0.000-0.034) ng/mL Coagulation 06/18/24 06/18/24 06/19/24 Range/Units 12: 18:34 01:31 PT 10.4 (10.0-12.5) sec APTT 25.5 26.9 40.7 H (22.0-30.0) sec Lipids 06/19/24 Range/Units 01:36 Triglycerides 128.00 (0.00-149.00) mg/dL Cholesterol 293.00 H (0.00-200.00) mg/dL HDL Cholesterol 93.40 H (40.00-60.00) mg/dL Cholesterol/HDL Ratio 3.14 Ratio CBC 06/18/24 06/19/24 Range/Units 12:07 01:36 WBC 9.54 6.92 (4.50-10.00) 10*3/uL RBC 3.72 L 3.74 L (4.10-5.20) 10*6/uL Hgb 12.1 12.1 (12.0-15.0) g/dL Hct 35.9 L 36.1 L (37.2-46.3) % Plt Count 253 252 (140-440) 10*3/uL Comprehensive Metabolic Panel 06/18/24 06/19/24 Range/Units 12:07 01:36 Sodium 133 L 132 L (137-145) mmol/L Potassium 4.7 4.4 (3.5-5.1) mmol/L Chloride 104 103 (98-107) mmol/L Carbon Dioxide 15 L 21 L (22-30) mmol/L BUN 22 H 24 H (7-17) mg/dL Creatinine 1.04 1.07 H (0.52-1.04) mg/dL Glucose 83 109 H (74-99) mg/dL Calcium 9.1 9.4 (8.4-10.2) mg/dL AST 23 (14-36) U/L ALT 14 (4-34) U/L Alkaline Phosphatase 65 (38-126) U/L Total Protein 7.4 (6.3-8.2) g/dL Albumin 4.2 (3.5-5.0) g/dL Current Medications Generic Name Dose Route Start Last Admin Trade Name Freq PRN Reason Stop Dose Admin Hydrocodone Bitart/Acetaminophen 1 each 06/18/24 15:12 06/19/24 00:10 Hydrocodone/Apap 10-325mg 1 Each Tab PO 1 each TID PRN Administration Pain Albuterol Sulfate 2.5 mg 06/18/24 14:43 06/19/24 00:30 Albuterol Nebulized 2.5 Mg/3 Ml INHALATION 2.5 mg RT-Q4H PRN Administration Shortness Of Breath Aspirin 81 mg 06/19/24 09:00 Aspirin 81 Mg PO DAILY [place] Atorvastatin Calcium 80 mg 06/18/24 21:00 06/18/24 20:47 Atorvastatin 80 Mg Tab PO 80 mg HS [place] Administration Budesonide/Formoterol Fumarate 2 puff 06/18/24 20:00 06/19/24 08:09 Symbicort 160-4.5 Mcg Inhaler INHALATION 2 puff RT-BID [place] Administration Fluoxetine HCl 20 mg 06/18/24 21:00 06/18/24 20:47 Fluoxetine Hcl 20 Mg Cap PO 20 mg BID [place] Administration Heparin Sodium (Porcine) 0 unit 06/18/24 19:20 06/18/24 20:06 Heparin Sodium 1,000 Un/Ml (10ml Vl) IV 3,243 unit PER PROTOCOL PRN Administration Low PTT Protocol Diltiazem HCl 125 mg/ Sodium 125 mls @ 5 mls/hr 06/18/24 12:15 06/19/24 00:47 Chloride IV 5 mg/hr .Q24H [place] 5 mls/hr Administration 5 MG/HR Heparin Sodium/Sodium Chloride 250 mls @ 7.784 mls/hr 06/18/24 13:00 06/18/24 19:41 25,000 unit/ Sodium Chloride IV 15 units/kg/hr .Q24H [place] 9.73 mls/hr Titration Protocol 12 UNITS/KG/HR Lisinopril 20 mg 06/19/24 09:00 Lisinopril 20 Mg Tab PO DAILY [place] Montelukast Sodium 10 mg 06/19/24 09:00 Montelukast 10 Mg Tab PO DAILY [place] Nicotine 1 patch 06/18/24 15:15 06/18/24 16:09 Nicotine 21mg/24hr Patch TRANSDERM 1 patch DAILY [place] Administration Nitroglycerin 0.4 mg 06/18/24 14:25 Nitroglycerin Sl Tabs 0.4 Mg Tab SUBLINGUAL Q5M PRN Chest Pain Tiotropium [place] 2 puff 06/19/24 08:00 06/19/24 08:09 Tiotropium 2.5 Mcg Inhaler INHALATION 2 puff RT-DAILY [place] Administration Intake and Output 06/18/24 06/19/24 06/19/24 22:59 06:59 14:59 Intake Total 290.769 62.083 Balance 290.769 62.083 Intake: Intake, IV Titration 50.769 62.083 Amount Diltiazem 125 mg In 62.083 Sodium Chloride 0.9% 100 ml @ 5 MG/HR 5 mls/hr IV .Q24H [facility] Rx#:[id number] Heparin Sod,Pork in 0.45% 50.769 NaCl 25,000 unit In 0.45 % NaCl 1 250ml.bag @ 12 UNITS/KG/HR 7.784 mls/hr IV .Q24H [facility] Rx#: [id number] Oral 240 Other: Voiding Method Toilet # Voids 1 1 Weight 60.5 kg 06/19/24 01:36 06/19/24 01:36
--- NOTE | 2024-06-19 10:58 | P.TEE ---
Date of Procedure: 06/19/24 Description of Procedure(s): Procedure performed: 1. Transesophageal Echocardiogram. 2. Synchronized Cardioversion. 3. Bubble study Indications: Persistent atrial fibrillation Consent: I have discussed the risks, benefits and alternative therapies for the above-mentioned procedure. The patient has indicated understanding and acceptance of the risks of the procedure. Signed consent was obtained and was placed in the paper chart. Moderate conscious sedation: Moderate conscious sedation was administered by anesthesia, see separate report. Procedural Steps: Timeout was performed in usual fashion. Patient's heart rate, blood pressure, oxygen saturation and ECG were monitored. After achieving appropriate moderate conscious sedation, GLEN GLEN probe was advanced without difficulty and without any immediate complications to the esophagus. GLEN study was performed with color flow doppler, pulsed wave doppler and continuous wave doppler. Agitated saline bubbles were injected to assess for any intra-atrial shunt. The probe was then removed. SYNCHRONIZED CARDIOVERSION After making sure that there is no evidence of intracardiac thrombus, pacer pads were placed and secured on patients chest and back. Synchronized cardioversion was perfromed using 200 J. [1] attempt. Sinus rhythm was confirmed with a 12 lead EKG. Patient tolerated the procedure well. Patient was transferred to the post procedure area in stable and satisfactory condition. Complications: none Blood loss: none FINDINGS Left Atrium: Moderate LA dilatation. No evidence of mass or thrombus seen Left Atrial Appendage: No evidence of thrombus or mass seen in ADWOA Inter atrial septum: Intact inter-atrial septum. No evidence of atrial septal defect or patent foramen ovale on color doppler. No evidence of lumdq-[id number] intracardiac shunting on bubble study Left Ventricle: Mildly reduced global LV systolic function Right Atrium: Normal overall RA size Right Ventricle: Normal global RV size and systolic function Aortic Valve: Trileaflet, mild sclerosis. No significant stenosis or regurgitation on color doppler assessment. Mitral Valve: Mild mitral regurgitation Pulmonic Valve: Not well visualized. Tricuspid Valve: Structurally normal. Ascending aorta, Aortic root and Aortic arch: Mild intimal thickening. No evidence of large atheroma or bulky calcification Descending aorta: Mild intimal thickening. No evidence of large atheroma or bulky calcification CONCLUSION: No evidence of thrombus in left atrial appendage or left atrium Moderate left atrial dilatation Mildly reduced global LV systolic function Successful cardioversion 1 attempt 200 J Cameron Quezada MD, RPVI, FACC Thank you for allowing [facility] to participate in this patient's care. Feel free to reach out in case of any followup questions.
--- NOTE | 2024-06-19 13:24 | CA ---
Transthoracic Echo Report Name: Kyra Foreman Age: 63 Gender: F : 1960 Exam Date: 06/18/2024 15:58 Exam Location: [place] Echo Ht (in): 65 Wt (lb): 143 Ordering Physician: Jerod Sotomayor MD Attending/Referring Phys: [employer] Faculty Member Liz Toro RDCS Procedure CPT: Indications: sob Cardiac Hx: Technical Quality: Good Contrast 1: Total Dose (mL): Contrast 2: Total Dose (mL): MEASUREMENTS (Male / Female) Normal Values 2D ECHO LV Diastolic Diameter PLAX 3.9 cm 4.2 - 5.9 / 3.9 - 5.3 cm LV Systolic Diameter PLAX 2.4 cm IVS Diastolic Thickness 1.0 cm 0.6 - 1.0 / 0.6 - 0.9 cm LVPW Diastolic Thickness 1.2 cm 0.6 - 1.0 / 0.6 - 0.9 cm LV Relative Wall Thickness 0.6 RV Internal Dim ED PLAX 2.8 cm LA Systolic Diameter LX 3.4 cm 3.0 - 4.0 / 2.7 - 3.8 cm LV Diastolic Volume MOD 4C 89.6 cm??? LV Systolic Volume MOD 4C 39.8 cm??? LV Ejection Fraction MOD 4C 55.6 % LV Cardiac Index MOD 4C 2530.9 cm???/min???m??? LV Diastolic Length 4C 7.7 cm LV Systolic Length 4C 6.1 cm LV Diastolic Volume MOD 2C 93.6 cm??? LV Systolic Volume MOD 2C 51.2 cm??? LV Ejection Fraction MOD 2C 45.3 % LV Cardiac Index MOD 2C 2156.6 cm???/min???m??? LV Diastolic Length 2C 7.3 cm LV Systolic Length 2C 5.8 cm LA Volume 70.1 cm??? 18 - 58 / 22 - 52 cm??? LA Volume Index 40.4 cm???/m??? 16 - 28 cm???/m??? M-MODE Aortic Root Diameter MM 3.1 cm DOPPLER AV Peak Velocity 132.6 cm/s AV Peak Gradient 7.0 mmHg MV Area PHT 4.5 cm??? MV Deceleration Time 124.7 ms TR Peak Velocity 230.4 cm/s TR Peak Gradient 21.2 mmHg Right Ventricular Systolic Press 26.2 mmHg FINDINGS Left Ventricle Left ventricular ejection fraction is estimated at 45-50 %. Mildly increased septal wall thickness. Mildly increased posterior wall thickness. No obvious regional wall motion abnormalities. Normal left ventricular wall motion. Right Ventricle Normal right ventricular size. Right ventricular systolic pressure within normal limits. Right Atrium Normal right atrial size. No right atrial thrombus or mass seen. Left Atrium Moderately increased left atrial volume. Mildly increased left atrial area. Mitral Valve Structurally normal mitral valve. Mild mitral annular calcification. Trace to mild mitral regurgitation. Aortic Valve Trileaflet aortic valve. Aortic valve sclerosis. No aortic valve stenosis or regurgitation. Tricuspid Valve Structurally normal tricuspid valve. Mild tricuspid regurgitation. Pulmonic Valve Pulmonic valve not well visualized. No pulmonic regurgitation. Pericardium No pericardial effusion. Aorta Normal size aortic root and proximal ascending aorta. CONCLUSIONS LVEF 45 to 50% LVEF likely underestimated because of irregular heartbeat No obvious regional wall motion abnormality Moderate LA dilatation No significant valvular dysfunction Previewed by: Dr Cameron Quezada (Electronically Signed) Final Date: 19 June 2024 13:23
[2024-06-19 14:12] VITALS: BP 126/81; PULSE 73; RESP 16; TEMP 97.8
[2024-06-19] MEDS: FUROSEMIDE 20 MG TAB PO STA (14:18)
[2024-06-19] MEDS: AMIODARONE 200 MG TAB PO SCH (14:19)
--- NOTE | 2024-06-19 14:52 | P.DS ---
Providers Date of admission: 06/18/24 14:25 Attending physician: Jana Broussard MD Consults: 06/18/24 14:36 Consult Physician Routine Consulting Provider: [facility] Consult Reason/Comments: New onset A-fib Do you want consulting provider notified?: Yes [facility] Course: Discharge diagnoses; #Potential new onset ischemic cardiomyopathy #New onset A-fib with RVR, possibly secondary to above #Acute on chronic HFpEF exacerbation (most recent echocardiogram 04/29/2020 showed EF 60-65%), possibly secondary to above #Atypical chest pain r/o ACS #Non oxygen dependant COPD, not currently in exacerbation #Hypertension #Hyperlipidemia #Nicotine dependence #Chronic degenerative disc disease #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 Nina at pain management clinic) presents emergency department with complaint of worsening shortness of breath over the past week. She states that she thought it was her COPD and went to an urgent care for evaluation, there she was given steroids and antibiotic. She noted no improvement. She has noticed increased swelling of her legs, particularly on her right. She endorses having chest pain for the past week or so which she describes as pressure-like in the center of her chest, without radiation. Over the past week she has noticed an inability to lie flat, as it causes her worsening shortness of breath, she is slept sitting upright in a chair. She denies any palpitations, nausea, vomiting, diarrhea. She was found to be in A-fib with RVR upon arrival to the emergency room. At that time she was placed on a heparin drip as well as a Cardizem drip, and her rate was better controlled, however her pain was not alleviated into the morning. During her stay she underwent an echocardiogram which showed ejection fraction 45-50%, however likely underestimated because of irregular heartbeat, moderate left atrial dilation. Additionally, she underwent GLEN with synchronized cardioversion. She will be initiated on multiple new medications including metoprolol tartrate 25 mg twice daily, Eliquis 5 mg twice daily, a course of amiodarone as prescribed by cardiology. Additionally, she expressed great interest in smoking cessation as well as alcohol cessation. Will be sent home with nicotine patch as well as prescription for Wellbutrin to assist with smoking cessation. Discussed the importance of regular follow-up with cardiology as well as her primary care physician, to which she expressed an understanding. He was also noted strips his components of obstructive sleep apnea, and was recommended to follow-up with a sleep study and pulmonology. Discussed this with her in great detail, and the importance of it, to which she expressed an understanding. She is very excited be discharged today, very appreciative, and very motivated. Physical Exam: General: nontoxic, no distress, appears at stated age Derm: warm, dry, intact Head: atraumatic, normocephalic, symmetric Eyes: EOMI, anicteric sclera Mouth: no lip lesion, mucus membranes moist Cardiovascular: S1 S2 reg, no murmur, rubs, or gallops Lungs: Faint rales noted in the bilateral lower lobes R>L; with notable shortness of breath on exertion Abdominal: soft, non-tender to palpataion, no appreciable organomegaly Extremities: no gross muscle atrophy, trace edema of the right lower extremity Neuro: Alert, Oriented, CNII-XII grossly intact, gait normal Psych: well appearing, appropriate affect Dictation was produced using [email or web address] dictation software. please excuse any grammatical, word or spelling errors. Andrew Sotomayor MD PGY-1 IM I saw and evaluated the patient during the turcios and critical portions of this encounter, and discussed the case in detail with the resident author of this note, I agree with the Assessment and Plan, and my changes, if any, are highlighted in blue. Plan - Discharge Summary Discharge Rx Participant: No New Discharge Prescriptions: New Amiodarone [Cordarone] 200 mg PO BID #45 tab Apixaban [Eliquis] 5 mg PO BID #60 tab Nicotine 21Mg/24Hr Patch [Habitrol] 1 patch TRANSDERM DAILY #30 patch Metoprolol Tartrate [Lopressor] 25 mg PO BID #60 tab lisinopriL [Zestril] 20 mg PO DAILY tab buPROPion HCL [Wellbutrin SR] 150 mg PO Q12H #60 tab Continue FLUoxetine HCL [PROzac] 20 mg PO BID Cholecalciferol [Vitamin D3 (25 Mcg = 1000 Iu)] 25 mcg PO DAILY Cyanocobalamin [Vitamin B-12] 500 mcg PO DAILY Albuterol Sulfate [Albuterol Sulfate Hfa] 2 puff INHALATION RT-Q4H PRN PRN Reason: Shortness Of Breath Tiotropium 2.5 Mcg/Puff [Spiriva Respimat 2.5 Mcg] 1 puff INHALATION RT-DAILY HYDROcodone/APAP 10-325MG [[place] 10-325] 1 tab PO TID PRN PRN Reason: Pain Atorvastatin [Lipitor] 80 mg PO HS Montelukast [Singulair] 10 mg PO DAILY Budesonide/Formoterol Fumarate [Symbicort 160-4.5 Mcg Inhaler] 2 puff INHALATION RT-BID Albuterol Nebulized [Ventolin Nebulized] 2.5 mg INHALATION RT-QID PRN PRN Reason: Shortness Of Breath Discontinued lisinopriL [Zestril] 20 mg PO DAILY Discharge Medication List FLUoxetine HCL [PROzac] 20 mg PO BID 03/25/17 [History] Cholecalciferol [Vitamin D3 (25 Mcg = 1000 Iu)] 25 mcg PO DAILY 04/28/20 [History] Atorvastatin [Lipitor] 80 mg PO HS 08/23/22 [History] Montelukast [Singulair] 10 mg PO DAILY 01/10/23 [History] Budesonide/Formoterol Fumarate [Symbicort 160-4.5 Mcg Inhaler] 2 puff INHALATION RT-BID 01/22/24 [History] Albuterol Nebulized [Ventolin Nebulized] 2.5 mg INHALATION RT-QID PRN 06/18/24 [History] Albuterol Sulfate [Albuterol Sulfate Hfa] 2 puff INHALATION RT-Q4H PRN 06/18/24 [History] Cyanocobalamin [Vitamin B-12] 500 mcg PO DAILY 06/18/24 [History] HYDROcodone/APAP 10-325MG [[place] 10-325] 1 tab PO TID PRN 06/18/24 [History] Tiotropium 2.5 Mcg/Puff [Spiriva Respimat 2.5 Mcg] 1 puff INHALATION RT-DAILY 06/18/24 [History] Amiodarone [Cordarone] 200 mg PO BID #45 tab 06/19/24 [Rx] Apixaban [Eliquis] 5 mg PO BID #60 tab 06/19/24 [Rx] Metoprolol Tartrate [Lopressor] 25 mg PO BID #60 tab 06/19/24 [Rx] Nicotine 21Mg/24Hr Patch [Habitrol] 1 patch TRANSDERM DAILY #30 patch 06/19/24 [Rx] buPROPion HCL [Wellbutrin SR] 150 mg PO Q12H #60 tab 06/19/24 [Rx] lisinopriL [Zestril] 20 mg PO DAILY tab 06/19/24 [Rx] Follow up Appointment(s)/Referral(s): Cameron Quezada MD [Medical Doctor] - 1 Week Meek Stark DO [Primary Care Provider] - 1-2 days Guevara Agarwal DO [Doctor of Osteopathic Medicine] - 1 Week Patient Instructions/Handouts: A-fib (Atrial Fibrillation) (GEN) Discharge Disposition: HOME SELF-CARE Plan of Treatment: Patient needs outpatient sleep study evaluation for suspected obstructive sleep apnea with Dr. Agarwal
== END 2024-06-19 15:31 | disposition home or self-care (01) ==
LOC: EC 11:50 → 6NMEDSUR 14:25
PROVIDERS: ADMIT Internal Medicine; ATTEND Internal Medicine
DX: I48.0 Paroxysmal atrial fibrillation (principal); J44.89 Other specified chronic obstructive pulmonary disease; E78.5 Hyperlipidemia, unspecified; K21.9 Gastro-esophageal reflux disease without esophagitis; F32.A Depression, unspecified; F41.9 Anxiety disorder, unspecified; I13.0 Hypertensive heart and chronic kidney disease with heart failure and stage 1 through stage 4 chronic kidney disease, or unspecified chronic kidney disease; I50.33 Acute on chronic diastolic (congestive) heart failure; N18.31 Chronic kidney disease, stage 3a; E11.22 Type 2 diabetes mellitus with diabetic chronic kidney disease; F17.210 Nicotine dependence, cigarettes, uncomplicated; Z79.82 Long term (current) use of aspirin; Z79.51 Long term (current) use of inhaled steroids; Z79.899 Other long term (current) drug therapy; Z88.6 Allergy status to analgesic agent
CPT/HCPCS: 96376 ×2; 96365 ×2; 96366 ×2; 96375 ×2; 96368; 99291; 36415; 94640 ×2; 93005; 93312; 93320; 93306; 93325; 92960; 83880; 80061; 80053; 80048; 84443; 83735 ×2; 84484; 85025; 85027; 85610; 85730 ×2; 87636; 71046; G0378 ×2; S4990 ×2; J1644 ×2; J3475; J1171; J1938

== ENCOUNTER → 2024-09-18 | Outpatient (CLI) | payer OTHER ==
[2024-09-18 15:07] LABS: HCT 34.9 % (37.2-46.3); HGB 10.5 g/dL (12.0-15.0); MCH 28.5 pg (27.0-32.0); MCHC 30.1 g/dL (32.0-37.0); MCV 94.6 FL (80.0-97.0); NRBC Per 100 WBC 0 X 10*3/uL (0.00-0.01); Platelet Count 342 X 10*3/uL (140-440); RBC 3.69 X 10*6/uL (4.10-5.20); RDW 14.2 % (11.5-14.5); WBC 6.34 X 10*3/uL (4.50-10.00)
[2024-09-18 15:40] LABS: NT-Pro-B-Type Natriuretic Pept 358 pg/mL (0-125)
[2024-09-18 15:51] LABS: ALT 10 U/L (8-44); AST 21 U/L (13-35); Albumin 3.9 g/dL (3.8-4.9); Albumin/Globulin Ratio 1.22 Ratio (1.60-3.17); Alkaline Phosphatase 81 U/L (41-126); Anion Gap 12.70 mmol/L (4.00-12.00); BUN/Creat Ratio 18.67 Ratio (12.00-20.00); Blood Urea Nitrogen 16.8 mg/dL (9.0-27.0); Calcium 9.3 mg/dL (8.7-10.3); Carbon Dioxide 20.3 mmol/L (21.6-31.8); Chloride 98 mmol/L (96-109); Cholesterol 236.00 mg/dL (0.00-200.00); Globulin 3.2 g/dL (1.6-3.3); Glucose 88 mg/dL (70-110); HDL Cholesterol 70.90 mg/dL (40.00-60.00); LDL Cholesterol,Calculated 124.7 mg/dL (0.0-131.0); Potassium 5.2 mmol/L (3.5-5.5); Sodium 131 mmol/L (135-145); Total Protein 7.1 g/dL (6.2-8.2); Triglycerides 202.00 mg/dL (0.00-149.00); VLDL Calculation 40.40 mg/dL (5.00-40.00)
[2024-09-18 15:52] LABS: T4, Free (Free Thyroxine) 0.87 ng/dL (0.80-1.80)
== END | disposition home or self-care (01) ==
LOC: LABWHC1 08:41
PROVIDERS: ATTEND Student in an Organized Health Care Education/Training Program
DX: I50.9 Heart failure, unspecified (principal); E11.9 Type 2 diabetes mellitus without complications; E78.5 Hyperlipidemia, unspecified; E03.9 Hypothyroidism, unspecified; D72.9 Disorder of white blood cells, unspecified; R79.89 Other specified abnormal findings of blood chemistry
CPT/HCPCS: 36415; 80053; 80061; 83036; 83880; 84439; 84443; 84481; 85027